=== PATIENT | male | born 1970 | race Caucasian/White ===

== ENCOUNTER 2020-05-28 07:08 | Day surgery (SDC) | payer OTHER, SELFPAY ==
[2020-05-21 13:45] VITALS: BMI 27.8
--- NOTE | 2020-05-27 11:50 | P.CONAN_ITS ---
Documented by User: Su Mccollum 05/27/20 11:51 HPI - Anesthesia Eval Consult details Narrative: 49yo M for Upper Endoscopy and Colonoscopy [facility] Past Medical History Medical History GERD (gastroesophageal reflux disease) Hypertension Reactive depression Surgical History Surgical History Hx of hernia repair Social History Social History Are you a primary assisted living care manager to a significant other at home: No Do you presently have visiting nurse or other home services: No Smoking Status: Current every day smoker Packs Per Day: 0.25 Cigarettes Per Day: 5.0 Years Smoked: 38 Smoked in Last 30 Days: Yes Patient Given Instructions on How to Stop Smoking: Yes Date Education Initiated: 05/21/20 Use of substances other than those prescribed or required for medical reasons: No Have you been hit, kicked, punched, or otherwise hurt by someone within the past year? If so, by whom?: No Advance Directives: No Advance Directives Information Provided: No Advance Directives on File: No Recently lost weight without trying: No Meds Allergies Allergy/AdvReac Type Severity Reaction Status Date / Time No Known Allergies Allergy Verified 05/21/20 13:35 Home Medications Medication Instructions Recorded Confirmed Type cyclobenzaprine 10 mg PO BEDTIME PRN 05/21/20 05/21/20 History gemfibrozil 600 mg PO BID 05/21/20 05/21/20 History omeprazole 20 mg PO DAILY 05/21/20 05/21/20 History Exam Exam Date and Time: May 27, 2020 1150 Height,Weight and Vital Signs: Height 6 ft Weight 92.986 kg Assessment and Plan Assessment Anesthesia Assessment: Chart Reviewed Documented by User: Destiny Roa 05/28/20 08:08 [facility] Past Medical History Medical History GERD (gastroesophageal reflux disease) Hypertension Reactive depression Surgical History Surgical History Hx of hernia repair Social History Social History Are you a primary assisted living care manager to a significant other at home: No Do you presently have visiting nurse or other home services: No Smoking Status: Current every day smoker Packs Per Day: 0.25 Cigarettes Per Day: 5.0 Years Smoked: 38 Smoked in Last 30 Days: Yes Patient Given Instructions on How to Stop Smoking: Yes Date Education Initiated: 05/21/20 Use of substances other than those prescribed or required for medical reasons: No Have you been hit, kicked, punched, or otherwise hurt by someone within the past year? If so, by whom?: No Advance Directives: No Advance Directives Information Provided: No Advance Directives on File: No Recently lost weight without trying: No Meds Allergies Allergy/AdvReac Type Severity Reaction Status Date / Time No Known Allergies Allergy Verified 05/21/20 13:35 Home Medications Medication Instructions Recorded Confirmed Type cyclobenzaprine 10 mg PO BEDTIME PRN 05/21/20 05/21/20 History gemfibrozil 600 mg PO BID 05/21/20 05/21/20 History omeprazole 20 mg PO DAILY 05/21/20 05/21/20 History Exam Airway Mallampati Class: II TM Dist: >3cm Neck ROM: Full Loose/Missing/Broken Teeth: No Heart: RRR Lungs: CTA Assessment and Plan Assessment Anesthesia Assessment: Anesthesia Plan Discussed Final Anesthetic Review NPO: Yes ASA Class: II Final Preanesthetic Review: Meds/Allgs Chart Reviewed, Consent Obtained/Reviewed and Anes Risks/Benef Reviewed Patient Risk: Intermediate Procedure Risk: Intermediate Anesthetic Plan Anesthetic Plan: MAC: Disposition: Standard PACU
--- NOTE | 2020-05-28 07:33 | P.HPSUR_ITS ---
Pre-Procedural Eval Section B Chief Complaint: GERD,SCREENING Relevant Social History: Tobacco Use Present Medications: see Short Stay Collaborative assessment Medical History: Significant History (htn,depression,gerd) History of Previous Operations: Relevant previous surgery/procedure and date(s) (hernia) Allergies: Allergies Allergy/AdvReac Type Severity Reaction Status Date / Time No Known Allergies Allergy Verified 05/21/20 13:35 Review of Systems Sugical H&P ROS: Negative: Constitution, Cardiovascular, Respiratory, Neurological, Psychiatric, Hem-Onc, Allergic/Immunologic, Gastrointestinal, Genitourinary, Musculoskeletal, Integumentary, Endocrine and Eyes/Ears/Nose/Throat Exam Surgical H&P Exam: Normal: HEENT, Normal: Heart, Normal: Lungs, Normal: Ex tremities, Normal: Abdomen, Normal: Skin and Normal: Neurological Plan Diagnosis/Plan: Unchanged Patient has been examined and remains a candidate for the planned procedure
[2020-05-28] MEDS: Lactated Ringers 1,000 ML 100 ML IVCONT (07:35)
[2020-05-28 07:57] VITALS: BP 139/103; PULSE 82; RESP 18; TEMP 36.1; O2SAT 95
--- NOTE | 2020-05-28 09:12 | PM.OP ---
Brief Operative Note Date of Service: 05/28/20 Pre-op diagnosis: GERD, colon screen Post-op diagnosis: same Procedure: see op note Surgeon: Ahmet Perez MD Anesthesia: MAC Estimated blood loss (mL): 0 Condition: stable Disposition: PACU
--- NOTE | 2020-05-28 09:12 | W.PM.OPN ---
Operative Note Operative Note Date of Service: 05/28/20 Narrative: Operative Information Procedure Description: EGD, Colonoscopy FLEXIBLE TRANSORAL UPPER GASTROINTESTINAL ENDOSCOPY AND COLONOSCOPY PROCEDURE NOTE UPPER ENDOSCOPY Consent: Indications for the procedure and potential complications of bleeding, perforation, reaction to medications and missed diagnosis were discussed with the patient and informed consent was obtained. Instrument: Olympus GIF H 190 J mid size upper endoscope Monitoring: Vital signs and clinical assessment, continuous EKG monitoring, Pulse oximetry, Carbon Dioxide monitoring and blood pressure monitoring were done throughout the procedure. Procedure: The patient was placed in the left lateral decubitis position and pre-procedure medications were administered and a bite block was placed. The endoscope was inserted into the mouth and advanced under direct vision to the third part of duodenum. A careful inspection was made as the upper endoscope was withdrawn including a retroflexed examination of the proximal stomach; Findings and interventions are described below. Findings: Larynx:normal Esophagus: GE junction at 40 cm, diaphragm hiatus at 40 cm, erosive esophagitis with linear streaks seen at distal esophagus LA grade B, bx taken from GEJ and random esophagus due to furrowing and ridging Stomach: Patchy gastritis. Biopsies were obtained. Grade 2 flap valve on retroflexed examination of the cardia. Duodenum: Normal bulb and descending duodenum, Intervention: Biopsies as noted above COLONOSCOPY Instrument: Olympus variable stiffness pediatric scope 190L Colonoscopy Monitoring: Vital signs and clinical assessment, continuous EKG monitoring, Pulse oximetry, Carbon Dioxide monitoring and blood pressure monitoring were done throughout the procedure. Colon withdrawal time was 12 minutes. Procedure: The patient was placed in the left lateral decubitis position and pre-procedure medications were administered. After a digital rectal examination of the ano-rectum, the video colonoscope was inserted into the rectum and advanced through the colon to the cecum/TI. The colonoscope was slowly withdrawn in a retrograde panoramic fashion and the colon mucosa was carefully examined including a retroflexed view of the rectum. Findings and interventions are described below. Procedure Difficulty: easy Findings: Terminal Ileum-normal Cecum:normal Ascending Colon: normal Transverse Colon -normal Descending Colon: 10-11 mm sessile polyp removed with cold snare Sigmoid Colon: few small diverticula seen Rectum: Retroflexion with moderate sized internal hemorrhoids, grade I, one samll polyp 3-4 mm removed with forceps Anorectum - normal Colon preparation: [place] Bowel Preparation Scale Right colon; 2 Transverse colon: 3 Left colon; 2 (0 = Unprepared colon segment with mucosa not seen due to solid stool that cannot be cleared. 1 = Portion of mucosa of the colon segment seen, but other areas of the colon segment not well seen due to staining, residual stool and/or opaque liquid. 2 = Minor amount of residual staining, small fragments of stool and/or opaque liquid, but mucosa of colon segment seen well. 3 = Entire mucosa of colon segment seen well with no residual staining, small fragments of stool or opaque liquid) Impression and Post Procedure Diagnosis: Endoscopy Findings: erosive esophagitis gastritis Colonoscopy Findings: internal hemorrhoids diverticular disease polyps Plan: Await Pathology results Repeat Colonoscopy in 5 years if adenomatous polyps, 10 yrs if hyperplastic or earlier if clinically indicated High fiber diet leaflet avoid straining at stool, epsom salts and sitz bath, anusol supps or cream prn review PPi use and compliance with patient Above findings were reviewed with the patient and relevant handouts were provided if indicated.
[2020-05-28 09:19] VITALS: BP 118/87; PULSE 80; RESP 12; TEMP 37.1; O2SAT 96
[2020-05-28 09:34] VITALS: BP 146/89; PULSE 87; RESP 16; TEMP 37.1; O2SAT 98
--- NOTE | 2020-05-28 10:22 | HO.POSTANES ---
Post Anesthesia Evaluation Post Anesthesia Evaluation Vital Signs: Vital Signs Temp Pulse Resp BP Pulse Ox 05/28/20 09:34 98.7 F 87 16 146/89 H 98 05/28/20 09:19 98.7 F 80 12 118/87 96 05/28/20 07:57 97 F 82 18 139/103 H 95 Anesthesia: Monitored Mental Status: Awake Pain Control: Satisfactory Nausea/Vomiting: None Hydration: Adequate
== END 2020-05-28 09:55 | disposition home or self-care (01) ==
PROVIDERS: PCP Physician Assistant; Visit Provider Internal Medicine Gastroenterology
PROC: (CPT 43239; principal; 2020-05-28 08:30)
DX: Z12.11 Encounter for screening for malignant neoplasm of colon (principal); K63.5 Polyp of colon; K62.1 Rectal polyp; K57.30 Diverticulosis of large intestine without perforation or abscess without bleeding; K64.0 First degree hemorrhoids; K21.00 Gastro-esophageal reflux disease with esophagitis, without bleeding; K29.50 Unspecified chronic gastritis without bleeding; I10 Essential (primary) hypertension; F17.210 Nicotine dependence, cigarettes, uncomplicated; Z79.899 Other long term (current) drug therapy
CPT/HCPCS: 43239; 45385; 45380; 88305; 88342; J3010

== ENCOUNTER 2020-06-10 07:34 | Outpatient (REF) | payer OTHER, SELFPAY ==
[2020-06-10 07:59] LABS: COVID-19 Test Negative (Negative)
== END 2020-06-10 07:35 | disposition home or self-care (01) ==
LOC: HO.EMPCOV 07:34
PROVIDERS: Visit Provider Internal Medicine
DX: Z20.828 Contact with and (suspected) exposure to other viral communicable diseases (principal)
CPT/HCPCS: 87635; C9803

== ENCOUNTER 2020-08-16 09:26 | Outpatient (REF) | payer OTHER, SELFPAY | END 2020-08-16 09:27 | disposition home or self-care (01) | LOC: HO.EMPCOV 09:26 | PROVIDERS: Visit Provider Internal Medicine | DX: Z13.89 Encounter for screening for other disorder (principal) ==

== ENCOUNTER 2021-01-23 13:29 | Outpatient (REF) | payer OTHER, SELFPAY ==
[2021-01-23 14:26] LABS: Hematocrit 48.2 % (42-52); Hemoglobin 16.5 g/dl (14.0-18.0); Mean Corpuscular HGB Conc 34.2 g/dl (31.0-36.0); Mean Corpuscular Hemoglobin 31.9 pg (27.0-33.0); Mean Corpuscular Volume 93.1 fL (80-98); Mean Platelet Volume 10.8 fL (9.4-12.4); Platelet Count 252 X10*3/uL (160-400); Red Blood Count 5.18 X10*6/uL (4.60-5.80); Red Cell Distribution Width 12.9 % (11.0-16.0); White Blood Count 8.5 X10*3/uL (4.8-10.8)
[2021-01-23 14:51] LABS: Anion Gap 18 (12-20); Blood Urea Nitrogen 11 mg/dL (9-16); Calcium 10.8 mg/dL (8.4-10.2); Carbon Dioxide 26 mmol/L (22-29); Chloride 98 mmol/L (96-108); Estimated Glomerular Filt Rate > 60; Glucose Random 117 mg/dL (60-115); Iron 129 mcg/dL (45-160); Lipase 21 U/L (8-78); Percent Iron Saturation 33 % (15-50); Potassium 3.8 mmol/L (3.3-5.1); Sodium 138 mmol/L (135-145); Total Iron Binding Capacity 394 mcg/dL (228-428); Unsaturated Iron Binding 265 ug/dL
[2021-01-23 15:13] LABS: Folate 12.3 ng/mL (> or = 4.0); Vitamin B12 441 pg/mL (200-900)
== END 2021-01-23 13:30 | disposition home or self-care (01) ==
LOC: HO.LAB 13:29
PROVIDERS: PCP Physician Assistant; Visit Provider Physician Assistant
DX: K21.9 Gastro-esophageal reflux disease without esophagitis (principal); R53.83 Other fatigue; I10 Essential (primary) hypertension; D50.9 Iron deficiency anemia, unspecified
CPT/HCPCS: 36415; 80048; 82607; 82746; 83540; 83690; 85027; 87081; 87338

== ENCOUNTER 2021-05-22 15:14 | Outpatient (REF) | payer OTHER, SELFPAY ==
[2021-05-22 15:29] LABS: MANUAL DIFF FLAG NO
[2021-05-22 15:40] LABS: Basophils Percent Auto 0.5 % (0-2); Eosinophils Percent Auto 0.5 % (0-4); Hematocrit 48.3 % (42.0-52.0); Hemoglobin 16.7 g/dl (14.0-18.0); Imm Gran Abs Auto 0.01 X10*3/uL (0.00-0.03); Imm Gran Pct Auto 0.2 % (0.0-0.4); Lymphocytes Absolute Auto 0.4 X10*3/uL (1.2-4.9); Lymphocytes Percent Auto 6.5 % (20-40); Mean Corpuscular HGB Conc 34.6 g/dl (31.0-36.0); Mean Corpuscular Hemoglobin 33.3 pg (27.0-33.0); Mean Corpuscular Volume 96.4 fL (80.0-98.0); Mean Platelet Volume 11.5 fL (9.4-12.4); Monocytes Absolute Auto 1.1 X10*3/uL (0.1-1.2); Monocytes Percent Auto 16.6 % (2-11); Neutrophils Absolute Auto 4.9 x10*3/uL (2.0-8.3); Neutrophils Percent Auto 75.7 % (45-73); Platelet Count 171 X10*3/uL (160-400); Red Blood Count 5.01 X10*6/uL (4.60-5.80); Red Cell Distribution Width 14.6 % (11.0-16.0); White Blood Count 6.5 X10*3/uL (4.8-10.8)
[2021-05-22 16:04] LABS: Anion Gap 21 (12-20); Blood Urea Nitrogen 9 mg/dL (9-16); Calcium 10.9 mg/dL (8.4-10.2); Carbon Dioxide 24 mmol/L (22-29); Chloride 96 mmol/L (96-108); Estimated Glomerular Filt Rate > 60; Glucose Random 165 mg/dL (60-115); Potassium 3.8 mmol/L (3.3-5.1); Sodium 137 mmol/L (135-145)
== END 2021-05-22 15:15 | disposition home or self-care (01) ==
LOC: HO.LAB 15:14
PROVIDERS: PCP Physician Assistant; Visit Provider Nurse Practitioner Family
DX: L30.9 Dermatitis, unspecified (principal); R21 Rash and other nonspecific skin eruption; I10 Essential (primary) hypertension
CPT/HCPCS: 36415; 80048; 85025

== ENCOUNTER 2021-07-24 09:39 | Outpatient (REF) | payer OTHER, SELFPAY ==
[2021-07-24 10:42] LABS: Hematocrit 40.6 % (42.0-52.0); Hemoglobin 13.9 g/dl (14.0-18.0); Mean Corpuscular HGB Conc 34.2 g/dl (31.0-36.0); Mean Corpuscular Hemoglobin 32.9 pg (27.0-33.0); Mean Corpuscular Volume 96.2 fL (80.0-98.0); Mean Platelet Volume 12.2 fL (9.4-12.4); Platelet Count 195 X10*3/uL (160-400); Red Blood Count 4.22 X10*6/uL (4.60-5.80); Red Cell Distribution Width 14.3 % (11.0-16.0); White Blood Count 5.3 X10*3/uL (4.8-10.8)
[2021-07-24 11:11] LABS: Appearance Urine HAZY; Glucose Urine UA 100 MG/DL (NEG); PH 6.5 (5.0-8.0); Specific Gravity - Urine 1.025 (1.005-1.025); Urine Blood TRACE (NEG); Urine Ketones 15 MG/DL (NEG); Urine Protein 3+ MG/DL (NEG-TRACE)
[2021-07-24 11:14] LABS: Alanine Aminotransferase 374 U/L (0-40); Albumin Level 4.1 g/dL (3.5-5.0); Alkaline Phosphatase 311 U/L (39-117); Anion Gap 19 (12-20); Aspartate Amino Transferase 563 U/L (5-37); Bilirubin Direct 6.7 mg/dL (0.0-0.5); Bilirubin Total 8.7 mg/dL (0.0-1.0); Blood Urea Nitrogen 11 mg/dL (9-16); Carbon Dioxide 28 mmol/L (22-29); Chloride 90 mmol/L (96-108); Estimated Glomerular Filt Rate > 60; Glucose Random 128 mg/dL (60-115); Potassium 3.6 mmol/L (3.3-5.1); Sodium 133 mmol/L (135-145); Total Protein 7.8 g/dL (6.5-8.0)
[2021-07-24 11:25] LABS: Calcium 11.8 mg/dL (8.4-10.2)
[2021-07-24 11:27] LABS: Color Urine BROWN; UACC Culture Trigger NO
[2021-07-24 11:32] LABS: HBS Num1 15.23 mIU/mL (0-7.99); HBc Num1 0.17 S/CO (0.00-0.79); HBsAGNum1 0.23 S/CO (0.00-0.99); Hepatitis B Core Antibody Nonreactive (Nonreactive); Hepatitis B Surface Antigen Negative (Negative); ~HepC Num1 0.12 S/CO (0.00-0.79); ~Hepatitis B Surface Antibody REACTIVE (Nonreactive); ~Hepatitis C Antibody Nonreactive (Nonreactive)
[2021-07-24 11:37] LABS: Mucus Urine 2+ /LPF
[2021-07-24 11:38] LABS: Bacteria Urine TRACE /LPF; UACC CULT YES
[2021-07-24 11:41] LABS: RBC Urine 0-2 /HPF (0); Squamous Epithelial Cell Urine TRACE /LPF
[2021-07-24 11:50] LABS: INTERNATIONAL NORM RATIO 1.1 (0.9-1.1)
[2021-07-25 13:06] LABS: Calcium (PTHI) 11.5 mg/dL (8.6-10.3); PTHI 4 pg/mL (14-64)
== END 2021-07-24 09:40 | disposition home or self-care (01) ==
LOC: HO.LAB 09:39
PROVIDERS: PCP Physician Assistant; Visit Provider Physician Assistant
DX: Z01.84 Encounter for antibody response examination (principal); Z11.3 Encounter for screening for infections with a predominantly sexual mode of transmission; R17 Unspecified jaundice; E83.52 Hypercalcemia; R11.11 Vomiting without nausea
CPT/HCPCS: 36415; 80048; 80076; 81001; 83970; 85027; 85610; 86704; 86706; 86803; 87081; 87086; 87338; 87340

== ENCOUNTER 2021-07-24 12:46 | Emergency (ER) | payer OTHER, SELFPAY ==
--- NOTE | ~2021-07-24 | US_ITS ---
EXAMINATION: US ABDOMEN LIMITED CLINICAL INFORMATION: Elevated LFTs, jaundice.. COMPARISON: None TECHNIQUE: Real-time imaging of the right upper quadrant abdominal viscera. FINDINGS: PANCREAS: Obscured by overlying bowel gas. LIVER: There is hepatomegaly present with vertical span of the right lobe of 20 cm and of the left lobe of 16 cm. There is diffuse echogenicity seen consistent with fatty infiltration/hepatocellular disease. No focal mass identified. There is no intrahepatic biliary duct dilatation seen.There appears to be antegrade flow within the main portal vein. GALLBLADDER: There is echogenic bile present with thickened wall to approximately 4.5 mm in diameter with question of fluid with in the gallbladder wall there is also noted to be a 3 mm echogenic focus with comet tail artifact consistent with cholesterol polyp. No pericholecystic fluid is identified. COMMON BILE DUCT: Normal in caliber measuring 0.6 cm in diameter. RIGHT KIDNEY: Normal. No hydronephrosis. No renal calculi or focal parenchymal lesions. The kidney measures 10.4 cm in maximum dimension. US/US abdomen limited IMPRESSION: Hepatomegaly with diffusely increased echogenicity of the liver consistent with fatty infiltration/hepatocellular disease. Question gallbladder wall thickening with possible fluid in the wall versus nondilated wall with adjacent echogenic region of the liver. There was no pain to palpation overlying the gallbladder and no definite pericholecystic fluid is seen. Cholesterol polyp is present.
[2021-07-24 12:53] VITALS: BP 139/88; PULSE 118; RESP 20; TEMP 36.6; O2SAT 99; BMI 28.5
--- NOTE | 2021-07-24 15:24 | ED_ITS ---
HPI - Recheck/Abnormal Lab/Rx General Chief Complaint: Recheck/Abnormal Lab/Rx Stated Complaint: Abnormal labs Time Seen by Provider: 07/24/21 14:05 Source: patient Mode of arrival: ambulatory Limitations: no limitations History of Present Illness HPI narrative: Patient comes to the emergency room complaining of elevated LFTs. Patient states that he was diagnosed with COVID-19 approximately 2 weeks ago. Patient was at home recovering. Yesterday was his 1st day back from work, patient noted that his colleagues were telling him that he looked jaundiced. Patient states that for approximately 1 week he has noticed that his urine is dark brown. Today he went to see his primary care physician, got lab work done. Shortly after patient received a phone call from his PCP asking him to come to the emergency room for further evaluation due to elevated LFTs. Patient denies any abdominal pain, no fever or chills. Patient states that he usually drinks 3 shots of vodka, but has not taking any alcohol for approximately 1 week. Related Data Previous Rx's Medication Instructions Recorded cetirizine 10 mg tablet 10 mg PO DAILY #30 tab 05/22/21 diphenhydramine HCl 25 mg capsule 25 - 50 mg PO BEDTIME PRN #30 cap 05/22/21 gemfibrozil 600 mg tablet 600 mg PO BID #60 tab 05/22/21 sildenafil 100 mg tablet (Viagra) 100 mg PO DAILY PRN 30 Days #7 tab 06/06/21 omeprazole 40 mg capsule,delayed 40 mg PO DAILY #90 cap 07/23/21 release Allergies Allergy/AdvReac Type Severity Reaction Status Date / Time No Known Allergies Allergy Verified 07/23/21 15:09 [No Known Allergies*] Review of Systems Review of Systems: Constitutional : No Weight loss, No Fever, No Chills, No Night Sweats, complaining of chronic fatigue for 2 weeks ENT/Mouth : No Hearing loss, No Ear Pain, No Nasal Congestion, No Sinus Pain, No Hoarseness, No sore throat, No Rhinorrhea, No Swallowing Difficulty Eyes: No Eye Pain, No Swelling, No Redness, No Foreign Body, No Discharge, No Vision Changes, complaining of icterus Cardiovascular : No Chest Pain, No SOB, No Dyspnea on Exertion, No Orthopnea, No Edema, No Palpitations Respiratory : No Cough, No Sputum, No Wheezing, No Smoke Exposure, No Dyspnea Gastrointestinal : No Nausea, No Vomiting, No Diarrhea, No Constipation, No abdominal Pain, No Hematochezia, No Melena Genitourinary : no irregular bleeding, No Dysuria, No Urinary Frequency, No Hematuria, No Urinary Incontinence, No Urgency, No Flank Pain, No Urinary Flow Changes, No Hesitancy Musculoskeletal : No joint pain, No Myalgias, No Joint Swelling Skin : No Skin Lesions, moderate jaundice Neuro : No Weakness, No Numbness, No Paresthesias, No Loss of Consciousness, No Dizziness, No Headache Psych : No Anxiety/Panic, No Depression, No SI/HI/AH/VH, No Social Issues, Heme/Lymph: No Bruising, No Bleeding,No Lymphadenopathy Endocrine : No Polyuria, No Polydipsia, No Temperature Intolerance [facility] Past Medical History Medical History GERD (gastroesophageal reflux disease) Hypertension Reactive depression Surgical History History of colonoscopy History of esophagogastroduodenoscopy (EGD) Hx of hernia repair Social History Social History Are you a primary medicare sales representative to a significant other at home: No Do you presently have visiting nurse or other home services: No Cigarette Packs Per Day: 0.25 Cigarettes Per Day: 5.0 Years Smoked: 38 service: No Current occupational status: employed Physical Exam Vital Signs: Vital Signs: Last Vital Signs Temp 98.7 F 07/24/21 17: Pulse 100 07/24/21 17: Resp 18 07/24/21 17:22 BP 141/94 H 07/24/21 17: Pulse Ox 94 07/24/21 17:22 BMI result Body Mass Index 28.5 Const: Other: Appearance: Alert. Oriented X3. No acute distress. Eyes: Pupils equal, round and reactive to light. Moderate scleral icterus ENT: Pharynx normal. Neck: Normal inspection. Neck supple. No lymph nodes noted. No crepitus CVS: Normal heart rate and rhythm. Pulses normal. Normal S1 and S2 Respiratory: No respiratory distress. Breath sounds normal. No Wheezing. No rales Abdomen: Soft and nontender. No rigidity. No distention. Skin: Skin warm and dry. Moderate jaundice. Extremities: No lower extremity edema. No lower extremity edema. No Lacerations. No Rash Neuro: Oriented X 3. No motor deficit. No sensory deficit. Moving all extermities. No slurred speech. Course Course Course Narrative: LFTs are elevated, hepatitis panel pending, ultrasound has been done but results pending. I discussed the patient with Dr. Bright. Patient will be discharged home, tomorrow early in the morning he needs to have his labs drawn prior to his appointment at 09:30 in the morning with Dr. Bright. If patient's LFTs continue to trend up, patient will be admitted tomorrow. At this time, other than patient feeling fatigued, patient is well-appearing. It is likely that the LFTs are secondary to COVID-19 Patient is COVID negative MDM - Recheck/Abnormal Lab/Rx Lab Data Labs: Lab Results 07/24/21 07/24/21 Range/Units 16:41 16:43 Salicylates < 5.0 L (15-30) mg/dL Acetaminophen 1 (<30) mcg/mL COVID-19 ([facility]) Negative (Negative) COVID-19 Clin Com See Note Imaging Data US - abdomen: Radiologist's impression: TECHNIQUE: Real-time imaging of the right upper quadrant abdominal viscera. FINDINGS: PANCREAS: Obscured by overlying bowel gas. LIVER: There is hepatomegaly present with vertical span of the right lobe of 20 cm and of the left lobe of 16 cm. There is diffuse echogenicity seen consistent with fatty infiltration/hepatocellular disease. No focal mass identified. There is no intrahepatic biliary duct dilatation seen.There appears to be antegrade flow within the main portal vein. GALLBLADDER: There is echogenic bile present with thickened wall to approximately 4.5 mm in diameter with question of fluid with in the gallbladder wall there is also noted to be a 3 mm echogenic focus with comet tail artifact consistent with cholesterol polyp. No pericholecystic fluid is identified. COMMON BILE DUCT: Normal in caliber measuring 0.6 cm in diameter. RIGHT KIDNEY: Normal. No hydronephrosis. No renal calculi or focal parenchymal lesions. The kidney measures 10.4 cm in maximum dimension. US/US abdomen limited IMPRESSION: Hepatomegaly with diffusely increased echogenicity of the liver consistent with fatty infiltration/hepatocellular disease. ? Question gallbladder wall thickening with possible fluid in the wall versus nondilated wall with adjacent echogenic region of the liver. There was no pain to palpation overlying the gallbladder and no definite pericholecystic fluid is seen. Cholesterol polyp is present. Discharge Plan Discharge Clinical Impression: Elevated LFTs Patient Disposition: Home, Self-Care Instructions: Jaundice (ED) Additional Instructions: Please follow-up with Dr. Bright from Gastroenterology tomorrow. At least 1 hour before your appointment at 09:30, you need to have your labs redrawn. If your labs are elevated, it is likely that you will be admitted to the hospital tomorrow. If you have any worsening or new symptoms[facility] Prescriptions: No Action sildenafil [Viagra] 100 mg tablet 100 mg PO DAILY PRN (Reason: sexual activity) 30 Days Qty: 7 RF: 5 gemfibrozil 600 mg tablet 600 mg PO BID Qty: 60 RF: 0 Hold Instructions: Doctor's Order cetirizine 10 mg tablet 10 mg PO DAILY Qty: 30 RF: 0 diphenhydramine HCl 25 mg capsule 25 - 50 mg PO BEDTIME PRN (Reason: sleep) Qty: 30 RF: 0 omeprazole 40 mg capsule,delayed release(DR/EC) 40 mg PO DAILY Qty: 90 RF: 0 Referrals: Nam Bright MD [Physician] - 07/25/21 9:30 am
[2021-07-24 15:54] VITALS: BP 139/91; PULSE 103; RESP 18; TEMP 37.3; O2SAT 97
[2021-07-24 17:07] LABS: COVID-19 Test Negative (Negative)
[2021-07-24 17:10] LABS: Acetaminophen LAB 1 mcg/mL (<30)
[2021-07-24 17:22] VITALS: BP 141/94; PULSE 100; RESP 18; TEMP 37.1; O2SAT 94
[2021-07-24 17:24] LABS: Salicylate < 5.0 mg/dL (15-30)
[2021-07-28 07:50] LABS: HBS Num1 12.09 mIU/mL (0-7.99); HBc Num1 0.09 S/CO (0.00-0.79); HBsAGNum1 0.25 S/CO (0.00-0.99); Hepatitis B Core Antibody Nonreactive (Nonreactive); Hepatitis B Surface Antigen Negative (Negative); ~HepC Num1 0.11 S/CO (0.00-0.79); ~Hepatitis B Surface Antibody REACTIVE (Nonreactive); ~Hepatitis C Antibody Nonreactive (Nonreactive)
[2021-07-30 07:23] LABS: Hepatitis A Antibody IgM 0.22 Index (0-0.79); ~Hepatitis A Antibody IgM Nonreactive (Nonreactive)
== END 2021-07-24 17:50 | disposition home or self-care (01) ==
PROVIDERS: Emergency Provider Emergency Medicine; PCP Physician Assistant
DX: R79.89 Other specified abnormal findings of blood chemistry (principal); Z20.822 Contact with and (suspected) exposure to COVID-19; F10.10 Alcohol abuse, uncomplicated; I10 Essential (primary) hypertension; F17.200 Nicotine dependence, unspecified, uncomplicated
CPT/HCPCS: 36415; 76705; 80143; 80179; 86704; 86706; 86709; 86803; 87340; 87635; 99283; 99284

== ENCOUNTER 2021-07-25 08:19 | Outpatient (REF) | payer OTHER, SELFPAY ==
--- NOTE | ~2021-07-25 | US_ITS ---
EXAMINATION: US ABDOMEN LIMITED CLINICAL INFORMATION: Unspecified jaundice. COMPARISON: Ultrasound abdomen limited 07/24/2021. TECHNIQUE: Real-time imaging of the left upper quadrant (imaging of the right upper quadrant was performed yesterday, 07/24/2021). FINDINGS: The spleen is homogeneous and normal in size measuring 9.3 cm. No focal lesion is seen. The left kidney measures 11.3 cm in length. There is an anechoic cyst in the mid pole, partially exophytic, measuring 2.2 x 2.2 x 2.2 cm. No echogenic stones or hydronephrosis is seen. There is normal cortical thickness. The right upper quadrant was imaged a day earlier on 07/24/2021. US/US abdomen limited IMPRESSION: Left renal cyst. Unremarkable spleen.
[2021-07-25 08:46] LABS: MANUAL DIFF FLAG NO
[2021-07-25 08:48] LABS: Basophils Absolute Auto 0.1 X10*3/uL (0.0-0.2); Basophils Percent Auto 1.2 % (0-2); Eosinophils Absolute Auto 0.2 X10*3/uL (0.0-0.4); Eosinophils Percent Auto 3.7 % (0-4); Hematocrit 40.6 % (42.0-52.0); Hemoglobin 14.2 g/dl (14.0-18.0); Imm Gran Abs Auto 0.04 X10*3/uL (0.00-0.03); Imm Gran Pct Auto 0.9 % (0.0-0.4); Lymphocytes Absolute Auto 0.9 X10*3/uL (1.2-4.9); Lymphocytes Percent Auto 20.6 % (20-40); Mean Corpuscular Hemoglobin 34.1 pg (27.0-33.0); Mean Corpuscular Volume 97.6 fL (80.0-98.0); Mean Platelet Volume 11.9 fL (9.4-12.4); Monocytes Absolute Auto 0.8 X10*3/uL (0.1-1.2); Monocytes Percent Auto 18.9 % (2-11); NRBC Pct Auto 0.7 /100WBC (0.0-0.2); Neutrophils Absolute Auto 2.4 x10*3/uL (2.0-8.3); Neutrophils Percent Auto 54.7 % (45-73); Platelet Count 225 X10*3/uL (160-400); Red Blood Count 4.16 X10*6/uL (4.60-5.80); Red Cell Distribution Width 14.4 % (11.0-16.0); White Blood Count 4.3 X10*3/uL (4.8-10.8)
[2021-07-25 08:53] LABS: Prothrombin Time 11.9 SEC (9.9-13.0)
[2021-07-25 09:03] LABS: Alanine Aminotransferase 401 U/L (0-40); Albumin Level 4.1 g/dL (3.5-5.0); Alkaline Phosphatase 347 U/L (39-117); Aspartate Amino Transferase 580 U/L (5-37); Bilirubin Direct 5.9 mg/dL (0.0-0.5); Bilirubin Total 7.8 mg/dL (0.0-1.0); Total Protein 7.9 g/dL (6.5-8.0)
[2021-07-25 11:42] LABS: Anion Gap 21 (12-20); Blood Urea Nitrogen 8 mg/dL (9-16); Calcium 11.6 mg/dL (8.4-10.2); Carbon Dioxide 25 mmol/L (22-29); Chloride 91 mmol/L (96-108); Estimated Glomerular Filt Rate > 60; Glucose Random 149 mg/dL (60-115); Lipase 156 U/L (8-78); Sodium 134 mmol/L (135-145)
== END 2021-07-25 08:20 | disposition home or self-care (01) ==
LOC: HO.US 08:19
PROVIDERS: Internal Medicine Gastroenterology; Absent Provider Emergency Medicine; PCP Physician Assistant; Visit Provider Physician Assistant
DX: R17 Unspecified jaundice (principal); R11.11 Vomiting without nausea; K21.9 Gastro-esophageal reflux disease without esophagitis
CPT/HCPCS: 36415; 76705; 80048; 80076; 83690; 85025; 85610

== ENCOUNTER 2021-07-25 10:22 | Inpatient (IN) | payer OTHER, SELFPAY ==
[2021-07-25] VITALS (7 sets, daily range): BP systolic 137–152; BP diastolic 92–106; PULSE 71–101; RESP 14–18; TEMP 36.4; O2SAT 93–97; BMI 27.1
--- NOTE | ~2021-07-25 | US_ITS ---
EXAMINATION: ABDOMINAL ULTRASOUND WITH DOPPLER CLINICAL INFORMATION: Question of Budd-Chiari syndrome COMPARISON: CT abdomen pelvis 07/25/2021 TECHNIQUE: Ultrasound limited to the liver was performed along with color flow Doppler. Imaging is suboptimal secondary to marked bowel gas and marked hyperattenuation of the liver with poor sound transmission. FINDINGS: The liver is enlarged with increased echogenicity consistent with fatty infiltration. This is better appreciated on the CT scan. Portal venous system is all patent with normal hepatopedal flow. The main hepatic artery appeared normal with a velocity of 107 cm/s. The right and left hepatic arteries could not be identified. Hepatic veins are all patent as was seen on the CT scan performed earlier today. No ascites is seen. No varices are identified. US/US duplex arterial venous comp IMPRESSION: * The portal venous system as well as the hepatic veins are all patent. * Markedly echogenic liver consistent with hepatic steatosis * No evidence to suggest the presence of Budd-Chiari syndrome
--- NOTE | ~2021-07-25 | CT_ITS ---
EXAMINATION: CT ABDOMEN AND PELVIS WITH CONTRAST CLINICAL INFORMATION: Gallbladder wall thickening on ultrasound COMPARISON: Ultrasound examinations of July 25, 2021 and July 24, 2021 TECHNIQUE: Multidetector volumetric images were obtained from the superior aspect of the liver through the pubic symphysis following administration 85 mL of Omnipaque 350 intravenous contrast. Sagittal and coronal reformatted images were obtained on the technologist's workstation. Oral contrast: No This CT examination was performed using dose optimization techniques as appropriate, variously including the following: *Automated exposure control *Adjustment of mA and/or kV according to patient size (this includes techniques or standardized protocols for targeted exams where dose is matched to indication/reason for exam; i.e. extremities or head) *Use of iterative reconstruction technique DLP: 596 mGy-cm FINDINGS: LUNG BASES: The visualized lung bases are unremarkable. LIVER, GALLBLADDER, AND BILIARY TREE: The liver is normal in size, shape, and attenuation. No focal hepatic lesion or biliary ductal dilatation is present. The gallbladder is unremarkable with no evidence of radiopaque gallstones, gallbladder wall thickening, or obvious pericholecystic inflammatory changes. PANCREAS: Unremarkable. SPLEEN: Unremarkable. ADRENAL GLANDS: Unremarkable. KIDNEYS AND URETERS: The kidneys are normal in size, shape, and attenuation. No hydronephrosis, hydroureter, or calculi seen. No perinephric stranding. BLADDER: Unremarkable. GASTROINTESTINAL TRACT: The small and large bowel are unremarkable. The appendix is unremarkable. ABDOMINAL WALL: No significant hernia is appreciated. LYMPH NODES: Normal. VASCULAR: Unremarkable. PELVIC VISCERA: Unremarkable. OSSEOUS STRUCTURES: Unremarkable. CT/CT abdomen pelvis w con IMPRESSION: No significant abnormality. Fleischner guidelines were followed.
--- NOTE | 2021-07-25 10:46 | PC.NURSE ---
pt seen in ed yesterday however he does not remember what he was seen for. he states that this morning a nurse called him to come to the hospital to be evaluated. pt's current bp 152/106. will recheck and continue to monitor.
--- NOTE | 2021-07-25 10:56 | ED.GENADULT ---
HPI - General Adult General Chief complaint: Recheck/Abnormal Lab/Rx Stated complaint: dehydration Time Seen by Provider: 07/25/21 10:45 History of Present Illness HPI narrative: Patient is a 50-year-old female with a past medical history hypertension, GERD, ETOH abuse, recent COVID-19 infection. Patient referred to the emergency department from Gastroenterology office after visit with Dr. Bright today, he reports that she advised him that he is dehydrated and requires IV fluids. He presented there for follow-up after emergency department visit yesterday. He was evaluated yesterday for recent onset of jaundice, elevated LFTs. Patient reports that he was diagnosed with COVID-19 about 2 weeks ago. Upon returning to work his coworkers were concerned about a jaundiced appearance and advised him to come to the emergency department. He states that he has lost approximately 20 lb over the past 2 weeks, that his urine is dark brown and has been that way for about 1 week. Additionally, he does report that he has been vomiting daily for 1 month. He denies any past history of liver disease, family history is unknown as he is adopted. Reports that does use 400 mg of ibuprofen every other day for the last few years typically for headaches. He endorses regular alcohol consumption, 2-3 vodka drinks nightly but reportedly has not consumed any alcohol over the past week. Related Data Previous Rx's Medication Instructions Recorded cetirizine 10 mg tablet 10 mg PO DAILY #30 tab 05/22/21 diphenhydramine HCl 25 mg capsule 25 - 50 mg PO BEDTIME PRN #30 cap 05/22/21 gemfibrozil 600 mg tablet 600 mg PO BID #60 tab 05/22/21 sildenafil 100 mg tablet (Viagra) 100 mg PO DAILY PRN 30 Days #7 tab 06/06/21 omeprazole 40 mg capsule,delayed 40 mg PO DAILY #90 cap 07/23/21 release Allergies Allergy/AdvReac Type Severity Reaction Status Date / Time No Known Allergies Allergy Verified 07/25/21 09:35 [No Known Allergies*] Review of Systems Review of Systems: Constitutional: No weight loss, fever, chills, weakness or fatigue. HEENT yellow sclera: No visual loss, blurred vision, double vision.. No hearing loss, sneezing, congestion, runny nose or sore throat. Skin: Skin dry and yellow Cardiovascular: No chest pain, chest pressure or chest discomfort. No palpitations or pedal edema. Respiratory: No shortness of breath, cough or sputum production. Gastrointestinal: + nausea, vomiting No anorexia, vomiting or diarrhea. No abdominal pain or blood in stool. Genitourinary: + dark-colored urine No burning micturition. No urinary frequency or incontinence. Neurologic: No headache, dizziness, syncope, unilateral weakness, ataxia, numbness or tingling in the extremities. No change in bowel or bladder control. Musculoskeletal: No muscle pain, back pain, joint pain or stiffness. Hematologic: No bleeding or bruising. Lymphatics: No enlarged lymph nodes. Psychiatric:No depression or anxiety. Endocrine: No reports of sweating. No cold or heat intolerance. No polyuria or polydipsia. REPLACED BY [facility] Past Medical History Medical History GERD (gastroesophageal reflux disease) Hypertension Reactive depression Surgical History History of colonoscopy History of esophagogastroduodenoscopy (EGD) Hx of hernia repair Social History Social History Are you a primary certified social workers in health care to a significant other at home: No Do you presently have visiting nurse or other home services: No Cigarette Packs Per Day: 0.25 Cigarettes Per Day: 5.0 Years Smoked: 38 Advance Directives: No Advance Directives Information Provided: No service: No Current occupational status: employed Physical Exam Vital Signs: Vital Signs: Last Vital Signs Temp 97.6 F 07/25/21 10:39 Pulse 80 07/25/21 14:46 Resp 16 07/25/21 14:46 BP 140/92 H 07/25/21 14:46 Pulse Ox 96 07/25/21 14:46 BMI result Body Mass Index 27.1 Vital signs have been reviewed and appeared to be correct. Blood pressure elevated 140/92. Heart rate normal.? Respiration rate normal. Temperature normal.? Oxygen saturation normal. Appearance: Alert.?Oriented to person, place and time. No acute distress.?Normal affect. Eyes: Pupils equal, round and reactive to light.? Sclera jaundice ENT: Pharynx normal.?? Neck: Normal inspection.? Neck supple.?? CVS: Heart sounds normal. Normal heart rate and rhythm.? Pulses normal.?? Respiratory: No respiratory distress.? Lung sounds clear to auscultation bilaterally?? Abdomen: Soft and non-tender. Normoactive bowel sounds. No pulsatile mass.?? Skin: Skin warm and dry.? Jaundice? Normal skin turgor.?? Extremities: No lower extremity edema.? No calf ttp? Neuro: Moves all extremities spontaneously. Sensation intact bilaterally. No focal neuro deficits. Course Course Course Narrative: Serum labs obtained today revealed leukopenia 4.3, which is decreased in comparison to yesterday at 5.3. PT and INR are normal. Total bilirubin today has decreased since yesterday, 7.8 and 8.7 respectively. Direct bilirubin has decreased today in comparison to yesterday 5.9 and 6.7 respectively. AST has increased today in comparison to yesterday 580 and 563 respectively, ALT has increased today in comparison to yesterday 401 and 374 respectively, alkaline phosphatase has increased today comparison to yesterday 347 and 311 respectively. Yesterday was found to have hypercalcemia 11.8, PTH currently pending. Abdominal ultrasound obtained yesterday revealed hepatomegaly with diffusely increased echogenicity of the liver consistent with fatty infiltration, hepatocellular disease. There is question gallbladder wall thickening and possible fluid in the wall, his repeat ultrasound ordered by Dr. Bright has been performed and results are pending at this time. He has already had hepatitis-C and C serologies obtained which were negative, hep B antibodies are pending. Normal saline 1 L IV bolus and Zofran IV ordered. Reevaluation(s) Reevaluation #1: Patient's renal function stable, therefore will move forward with CT of the abdomen with IV contrast for further evaluation gallbladder. Noted to be hypokalemic 3.0 in comparison to level yesterday at 3.6, will patient received potassium 40 mEq orally, and potassium 20 mEq IV in total, in addition to another normal saline 1L IV bolus Time: 12:22 Reevaluation #2: CT of abdomen unremarkable. Liver normal in size no focal hepatic lesion or biliary ductal dilation. Gallbladder unremarkable no cholelithiasis, gallbladder wall thickening, or any inflammatory changes. The patient will begin p.o. trial. Denies nausea at times and has not vomited in the last couple of hours. Will reach out to Dr. Bright for further recommendations. Time: 14:25 Reevaluation #3: Patient tolerating oral intake. Dr. Bright at bedside to evaluate patient. Discussed plan of care for patient to be discharged home with antiemetics and to have repeat liver function testing outpatient follow-up in office. Patient is agreeable with plan. Discussed return precautions. Questions answered. Time: 16:00 Additional Reevaluation(s): 17:11 Received message from Radiology regarding patient's abdominal CT results, advised Radiology had entered an addendum. Shared results with Dr. Bright. CT does in fact show diffuse fatty infiltration of the liver with hepatomegaly and distended gallbladder wall with few small calcifications about its wall but without evidence of acute cholecystitis. There is an incidental finding of a left renal cyst. There is question of some impression upon the superior aspect of the inferior vena cava from liver. There appears to be some narrowing of the superior aspect of the inferior vena cava in the superior aspect of the liver and I cannot determine whether there may be some degree of Budd-Chiari present . I spoke with Dr. Bright again, she advises admission to get an ultrasound with Doppler and rule out Budd-Chiari. 1755: Spoke with , who accepted, patient to be admitted inpatient for further evaluation. Patient agreeable. Consultations Time: 17:11 Medical Decision Making Medical Records Medical records reviewed: Yes I reviewed the patient's medical records. Lab Data Lab results reviewed: Yes I reviewed the patient's lab results. Imaging Data US - abdomen: Attestation: I personally reviewed and interpreted this imaging study as follows: Radiologist's impression: Obtained 07/24/2021: IMPRESSION: Hepatomegaly with diffusely increased echogenicity of the liver consistent with fatty infiltration/hepatocellular disease. ? Question gallbladder wall thickening with possible fluid in the wall versus nondilated wall with adjacent echogenic region of the liver. There was no pain to palpation overlying the gallbladder and no definite pericholecystic fluid is seen. Cholesterol polyp is present. Repeat abdominal ultrasound: Attestation: I personally reviewed and interpreted this imaging study as follows: Radiologist's impression: Obtained today 07/25/2021: __ CT scan - abdomen: Attestation: I personally reviewed and interpreted this imaging study as follows: Radiologist's impression: IMPRESSION: No significant abnormality.? Addendum: IMPRESSION: Diffuse fatty infiltration of the liver with hepatomegaly. Distended gallbladder with a few small calcifications about its wall but without evidence of acute cholecystitis. Left renal cyst. Question some impression upon the superior aspect of the inferior vena cava from liver as described. Critical Care Time Critical Care Time Critical Care Time: No Discharge Plan Discharge Clinical Impression: Excessive drinking alcohol, Dark brown-colored urine, Jaundice, GERD (gastroesophageal reflux disease), Elevated liver function tests Patient Disposition: Admitted As Inpatient
[2021-07-25] MEDS: 0.9 % Sodium Chloride 1,000 ML 999 ML IV ×2 (11:27→13:16)
[2021-07-25] MEDS: ondansetron HCL 4 MG/2 ML VIAL IVPUSH ×2 (11:28→21:33)
[2021-07-25] MEDS: iohexoL 350 MG/ML 100 ML INFUS..BTL IV (13:07)
[2021-07-25] MEDS: Potassium Chloride/H20 10 MEQ/100 ML PIGGYBACK 100 MEQ IV ×4 (13:22→23:17)
[2021-07-25] MEDS: Potassium Chloride ER 20 MEQ TAB.ER.PRT 40 MEQ PO (13:22)
--- NOTE | 2021-07-25 18:48 | PM.IMHP ---
History of Present Illness Date of Service: 07/25/21 Attending physician on admission: Osiel Conroy Chief Complaint: Nausea vomiting and Elevated LFTs 50-year-old gentleman diagnosed to have COVID-19 infection approximately 2 weeks,noted to be to have dark-colored urine, and at work colleagues noticed that he is jaundice therefore went to primary care physician labs were drawn patient was directed to go to [facility] due to abnormal LFTs, patient came to [facility] on July 24 and noted to have significantly elevated LFTs with symptoms of nausea, vomiting, and abdominal ultrasound was obtained that showed hepatomegaly with diffusely increased echogenicity of the liver consistent with fatty infiltration/hepatocellular disease, case was discussed with Dr. Bright from Gastroenterology and she recommended follow-up with her next day, this morning patient went to see Dr. Bright, where he was noted to have nausea vomiting therefore referred to [facility] for IV hydration and for continued monitoring of LFT, according to patient he has been having severe heartburn, causing nausea vomiting with decreased by mouth intake he also has intermittent diarrhea, as per patient he drinks 2-3 shots of vodka daily but in last 1 week he is only using 1 shot a day, give history of prior withdrawal tremors but no seizures, he complains of generalized weakness, denies fever chills no other acute issues In the emergency room CT abdomen and pelvis was obtained that showed some narrowing of the superior aspect of the inferior vena cava in this superior aspect of the liver with concern for some degree of Budd Chiari Therefore patient will undergo Doppler ultrasound Review of Systems Review of Systems: General no headache no dizziness no fever chills. CVS no chest pain, no palpitation. Respiratory no cough , no sob. Gastrointestinal heartburn, nausea and vomiting dark-colored urine Musculoskeletal no pain PMFSH Medical History GERD (gastroesophageal reflux disease) Hypertension Reactive depression Surgical History History of colonoscopy History of esophagogastroduodenoscopy (EGD) Hx of hernia repair Social History Are you a primary animal care provider to a significant other at home: No Do you presently have visiting nurse or other home services: No Cigarette Packs Per Day: 0.25 Cigarettes Per Day: 5.0 Years Smoked: 38 Advance Directives: No Advance Directives Information Provided: No service: No Current occupational status: employed Meds Allergies Allergy/AdvReac Type Severity Reaction Status Date / Time No Known Allergies Allergy Verified 07/25/21 09:35 [No Known Allergies*] Active Medications: Current Medications Al Hydroxide/Mg Hydroxide (Magnesium Hydrox/Alum Hydrox 30 Ml Oral.Susp) 15 ml PO ONCE ONE Stop: 07/25/21 18:43 Calcium Carbonate (Calcium Carbonate 750 Mg Tab.Chew) 750 mg PO Q6H PRN PRN Reason: heart burn Potassium Chloride () 10 meq in 100 mls @ 100 mls/hr IV Q1H LYUBOV Stop: 07/25/21 20:44 Potassium Chloride/Dextrose/Sod Cl () 20 meq in 1,000 mls @ 100 mls/hr IVCONT .Q10H LYUBOV Ondansetron HCl (Ondansetron Hcl 4 Mg/2 Ml Vial) 4 mg IVPUSH Q8H PRN PRN Reason: Nausea and Vomiting Pharmacy Consult (Consult Rx Perform Med Rec) 1 each MISCELLANE ONCE PRN PRN Reason: Consult order Sodium Chloride (0.9 % Sodium Chloride Flush 3 Ml Syringe) 3 ml IVFLUSH QSHIFT LYUBOV Physical Exam Vital Signs and Narrative: Vital Signs: Last Vital Signs Temp 97.6 F 07/25/21 10:39 Pulse 80 07/25/21 14:46 Resp 16 07/25/21 14:46 BP 140/92 H 07/25/21 14:46 Pulse Ox 96 07/25/21 14:46 BMI result Body Mass Index 27.1 Const: Other: General awake alert no acute distress. HEENT pupil equal round reactive to light icteric sclerae Neck supple no JVD. CVS regular rate rhythm, Respiratory lungs clear to auscultation, no respiratory distress, no wheeze, no rhonchi. Gastrointestinal abdomen soft, no right upper quadrant tenderness, bowel sounds audible, Extremities edema, tremors Neuro nonfocal Skin jaundice Psych appropriate affect Results Imaging Radiologist's Impressions: Impressions Abdomen/Pelvis CT 07/25/21 13:02 IMPRESSION: No significant abnormality. Fleischner guidelines were followed. Doppler Study Ultrasound 07/25/21 18:18 IMPRESSION: * The portal venous system as well as the hepatic veins are all patent. * Markedly echogenic liver consistent with hepatic steatosis * No evidence to suggest the presence of Budd-Chiari syndrome Assessment and Plan (1) Elevated liver function tests: Status: Acute (2) Hypercalcemia: Status: Acute (3) Dark brown-colored urine: Status: Acute (4) Vomiting: Qualifiers: Vomiting type: unspecified Nausea presence: without nausea Qualified Code(s): R11.11 - Vomiting without nausea Status: Acute (5) Alcoholic gastritis: Status: Acute (6) Alcohol abuse: Status: Acute (7) Tobacco use disorder: Status: Acute 50-year-old gentleman diagnosed to have COVID-19 approximately 2 weeks ago presented to [facility] due to jaundice with intractable nausea vomiting with history of daily alcohol consumption. intractable nausea vomiting Likely due to alcoholic gastritis and elevated LFT Since Pepcid and Prilosec are hepatotoxic will use Maalox and Tums Place on IV fluids antiemetics Elevated LFTs No abdominal pain Hepatitis-B and C serology negative, hepatitis-A antibody pending Patient denies Tylenol use Likely due to recent COVID infection versus alcoholic hepatitis Abnormal CT abdomen with concern for Budd-Chiari will follow abdominal ultrasound to rule out Budd-Chiari syndrome Follow LFTs BMP Being followed by Dr. Bright Hypokalemia Likely due to GI loss will replace and follow Alcohol use disorder At present patient has no signs of withdrawal, will place on CIWA protocol Care team consult Tobacco use disorder Will place on nicotine patch DVT prophylax with Lovenox Code status full code Quality Stroke Does the patient have a stroke diagnosis?: No VTE Prior VTE?: No VTE Risk Level:: Medical - moderate - high VTE Device Contraindication: N/A - Device Ordered VTE Drug Contraindication: Treatment Not Indicated
--- NOTE | 2021-07-25 19:05 | PHA.MEDREC ---
Pharmacy Consult ? Medication Reconciliation Pharmacy has completed the medication reconciliation.
[2021-07-25] MEDS: Magnesium Hydrox/Alum Hydrox 30 ML ORAL.SUSP 15 ML PO (19:25)
[2021-07-25] MEDS: Calcium Carbonate 750 MG TAB.CHEW PO (19:25)
[2021-07-25] MEDS: Nicotine 7 MG PATCH.TD24 TRANSDERMA (19:26)
[2021-07-25 19:39] LABS: COVID-19 Test Negative (Negative)
--- NOTE | 2021-07-25 19:39 | PC.NURSE ---
assisting primary RN- pt medicated per MAR, COVID swab sent. Pt expressing frustration re: noise in ED, stated just get a rag with some chloroform for her referring to different pt that is yelling.
[2021-07-25] MEDS: Enoxaparin Sodium 40 MG/0.4 ML SYRINGE SUBCUT (20:15)
[2021-07-25] MEDS: KCl 20 mEq in 5% Dex/0.9% Sod 20 MEQ/1,000 ML IV.SOLN 100 MEQ IVCONT (23:22)
[2021-07-26] VITALS (7 sets, daily range): BP systolic 134–150; BP diastolic 86–110; PULSE 69–94; RESP 18; TEMP 36–37.6; O2SAT 93–98
[2021-07-26] MEDS: diphenhydrAMINE HCL 25 MG TABLET PO (02:11)
[2021-07-26] MEDS: 0.9 % Sodium Chloride Flush 3 ML SYRINGE IVFLUSH ×2 (08:14→17:29)
[2021-07-26] MEDS: Calcium Carbonate 750 MG TAB.CHEW PO (08:14)
[2021-07-26] MEDS: ondansetron HCL 4 MG/2 ML VIAL IVPUSH (08:14)
[2021-07-26 09:51] LABS: Alanine Aminotransferase 291 U/L (0-40); Albumin Level 2.9 g/dL (3.5-5.0); Alkaline Phosphatase 246 U/L (39-117); Anion Gap 13 (12-20); Aspartate Amino Transferase 428 U/L (5-37); Bilirubin Total 6.3 mg/dL (0.0-1.0); Blood Urea Nitrogen 8 mg/dL (9-16); Calcium 9.5 mg/dL (8.4-10.2); Carbon Dioxide 26 mmol/L (22-29); Chloride 103 mmol/L (96-108); Cholesterol 357 mg/dL; Creatinine Clr Calc Pharmacy 131.4; Estimated Glomerular Filt Rate > 60; Glucose Random 146 mg/dL (60-115); HDL Cholesterol 8 mg/dL; Lipase 122 U/L (8-78); Magnesium 1.8 mg/dL (1.6-2.6); Potassium 3.5 mmol/L (3.3-5.1); Sodium 138 mmol/L (135-145); Total Protein 5.5 g/dL (6.5-8.0); Triglycerides 491 mg/dL
[2021-07-26] MEDS: Folic Acid 1 MG TABLET PO (10:51)
[2021-07-26] MEDS: Thiamine HCL 100 MG TABLET PO (10:52)
[2021-07-26] MEDS: Multivitamin TABLET 1 TAB PO (10:53)
[2021-07-26] MEDS: Nicotine 7 MG PATCH.TD24 TRANSDERMA (10:53)
[2021-07-26] MEDS: Omeprazole 40 MG CAPSULE.DR PO (11:27)
--- NOTE | 2021-07-26 13:46 | MHC.CM.PN ---
PT IS AN EMPLOYEE IT IS NOT EXPECTED THAT HE WILL BREANNA SERVLEONARDOIS WHEN DCD CM WILL FOLLOW
--- NOTE | 2021-07-26 14:05 | P.PNIM_ITS ---
Subjective Subjective Date of Service: 07/26/21 Interval History: nausea + abd discomfort improved not tremulous Review of Systems Review of Systems: Yes all other systems are reviewed and are negative Physical Exam Vital Signs: Vital Signs: Last Vital Signs Temp 96.8 F 07/26/21 12:00 Pulse 70 07/26/21 12:00 Resp 18 07/26/21 12:00 BP 150/110 H 07/26/21 12:00 Pulse Ox 95 07/26/21 12:00 BMI result Body Mass Index 27.1 Gen: in no acute distress HEENT: sclera icteric, moist mucus membranes Neck: supple Lungs: clear to auscultation bilaterally Heart: regular rate and rhythm, no murmurs Abd: soft, mild epigastric tenderness without rebound, non-distended Ext: no edema Skin: warm/well-perfused, jaundiced Neuro: alert and oriented x3, no focal findings Psych: appropriate affect Objective Data Active Medications Calcium Carbonate (Calcium Carbonate 750 Mg Tab.Chew) 750 mg PO Q6H PRN PRN Reason: heart burn Last Admin: 07/26/21 08:14 Dose: 750 mg Documented by: RUPINDER Enoxaparin Sodium (Enoxaparin Sodium 40 Mg/0.4 Ml Syringe) 40 mg SUBCUT Q24H [facility] Last Admin: 07/25/21 20:15 Dose: 40 mg Documented by: SUZE Folic Acid (Folic Acid 1 Mg Tablet) 1 mg PO DAILY [facility] Last Admin: 07/26/21 10:51 Dose: 1 mg Documented by: RUPINDER Multivitamins/Vitamin C (Multivitamin Tablet) 1 tab PO DAILY [facility] Last Admin: 07/26/21 10:53 Dose: 1 tab Documented by: RUPINDER Nicotine (Nicotine 7 Mg Patch.Td24) 7 mg TRANSDERMA DAILY [facility] Last Admin: 07/26/21 10:53 Dose: 7 mg Documented by: RUPINDER Omeprazole (Omeprazole 40 Mg Capsule.Dr) 40 mg PO DAILY@0630 [facility] Last Admin: 07/26/21 11:27 Dose: 40 mg Documented by: RUPINDER Ondansetron HCl (Ondansetron Hcl 4 Mg/2 Ml Vial) 4 mg IVPUSH Q8H PRN PRN Reason: Nausea and Vomiting Last Admin: 07/26/21 08:14 Dose: 4 mg Documented by: RUPINDER Pharmacy Consult (Consult Rx Perform Med Rec) 1 each MISCELLANE ONCE PRN PRN Reason: Consult order Sodium Chloride (0.9 % Sodium Chloride Flush 3 Ml Syringe) 3 ml IVFLUSH QSHIFT [facility] Last Admin: 07/26/21 08:14 Dose: 3 ml Documented by: RUPINDER Sucralfate (Sucralfate Oral Suspension 1 Gm/10 Ml Oral.Susp) 1 gm PO QIDACHS [facility] Thiamine HCl (Thiamine Hcl 100 Mg Tablet) 100 mg PO DAILY [facility] Last Admin: 07/26/21 10:52 Dose: 100 mg Documented by: RUPINDER Labs CBC & Chem 7: 07/26/21 05:52 Labs: Laboratory Results - last 24 hr 07/25/21 07/26/21 19:21 05:52 Anion Gap 13 Estim Creat Clear Calc 131.4 Estimated GFR > 60 Random Glucose 146 H Calcium 9.5 D Magnesium 1.8 Total Bilirubin 6.3 H Direct Bilirubin 5.0 H AST 428 H ALT 291 H Alkaline Phosphatase 246 H D Total Protein 5.5 L D Albumin 2.9 L D Triglycerides 491 Cholesterol 357 LDL Cholesterol, Calc TNP HDL Cholesterol 8 Lipase 122 H COVID-19 (RINKU) Negative COVID-19 Clin Com See Note Assessment and Plan (1) Alcohol abuse: Status: Acute (2) Alcoholic gastritis: Status: Acute (3) Alcoholic hepatitis: Status: Acute Assessment and Plan: hospital d#2 50yo M with AUD, recent Covid-19 admitted with jaundice, N/V # intractable N/V - likely EtOH gastritis - PPI, antiemetics, sobriety # EtOH hepatitis - MDF low, no steroids or pentoxyfilline indicated - US abd neg for Budd-Chiari, HBV/HCV neg - outpt GI f/u # AUD - Addiction Med consult - B vitamins - CIWA protocol # hypoK - repleted # tobacco abuse - NRT # VTE ppx - LMWH Quality Stroke Does the patient have a stroke diagnosis?: No VTE Prior VTE?: No VTE Risk Level:: Medical - moderate - high VTE Device Contraindication: N/A - Device Ordered VTE Drug Contraindication: Treatment Not Indicated
[2021-07-26] MEDS: Sucralfate Oral Suspension 1 GM/10 ML ORAL.SUSP PO ×2 (15:12→20:12)
[2021-07-26] MEDS: Ondansetron ODT 4 MG TAB.RAPDIS TRANSLINGU (15:13)
--- NOTE | 2021-07-26 16:02 | PM.GIPN ---
Subjective Subjective Date of Service: 07/26/21 Interval History: Continues to have nausea and intermittent vomiting which he attributes to worsening heartburn. Critical Care Time (minutes): 15 Physical Exam Vital Signs: Vital Signs: Last Vital Signs Temp 96.8 F 07/26/21 12:00 Pulse 70 07/26/21 12:00 Resp 18 07/26/21 12:00 BP 150/110 H 07/26/21 12:00 Pulse Ox 95 07/26/21 12:00 BMI result Body Mass Index 27.1 Const: General: ill appearing Eyes: Sclerae: scleral abnormal (jaundice) GI: Palpation (GI): Hepatomegaly present Neuro: Cranial nerves: Yes Normal hearing present Speech: No Abnormal speech present Psych: Affect: Anxious affect present Objective Data Labs CBC & Chem 7: 07/26/21 05:52 Labs: Laboratory Results - last 24 hr 07/25/21 07/26/21 19:21 05:52 Sodium 138 Potassium 3.5 Chloride 103 Carbon Dioxide 26 Anion Gap 13 BUN 8 L Creatinine 0.73 Estim Creat Clear Calc 131.4 Estimated GFR > 60 Random Glucose 146 H Calcium 9.5 D Magnesium 1.8 Total Bilirubin 6.3 H Direct Bilirubin 5.0 H AST 428 H ALT 291 H Alkaline Phosphatase 246 H D Total Protein 5.5 L D Albumin 2.9 L D Triglycerides 491 Cholesterol 357 LDL Cholesterol, Calc TNP HDL Cholesterol 8 Lipase 122 H COVID-19 (RINKU) Negative COVID-19 Clin Com See Note Procedures Date of Service Date of Service: 07/26/21 Progress Note: A&P Assessment and plan (1) Alcoholic hepatitis: Status: Acute (2) Elevated liver function tests: Status: Acute (3) Vomiting: Status: Acute (4) GERD (gastroesophageal reflux disease): Status: Acute Assessment and Plan: 50 year old [employer] [facility] employee with hypertension, GERD, known history of EtOH abuse, recent COVID 19 infection presented to [facility] ED on 07/24/21 with nausea, vomiting, jaundice and elevated LFTs and intermittent diarrhea COVID negative. PT denied recent acetaminiphen use. Elevated LFTs possibly related to recent COVID infection versus alcoholic hepatitis.? Hep B and C serologies were negative. Elevated Lipase likely related to liver disease - normal pancreas on CT scan. Pt was admitted on 07/25/21 due to repeated episodes of vomiting with dehydration and hypokalemia. LFTs improved today. RECOMMENDATIONS: 1. Agree with PO PPI for GERD and IV antiemetics 2. Sucralfate added for continuing heartburn, nausea and vomiting. 3. Follow LFTs 4. OK to DC home in the am on anti emetics and PPI twice daily if nausea and vomiting resolves. If symptoms persist, pt can be scheduled for an EGD on 07/28/21 Fall Risk Details Current Medications: Current Medications Calcium Carbonate (Calcium Carbonate 750 Mg Tab.Chew) 750 mg PO Q6H PRN PRN Reason: heart burn Last Admin: 07/26/21 08:14 Dose: 750 mg Documented by: Enoxaparin Sodium (Enoxaparin Sodium 40 Mg/0.4 Ml Syringe) 40 mg SUBCUT Q24H [facility] Last Admin: 07/25/21 20:15 Dose: 40 mg Documented by: Folic Acid (Folic Acid 1 Mg Tablet) 1 mg PO DAILY [facility] Last Admin: 07/26/21 10:51 Dose: 1 mg Documented by: Multivitamins/Vitamin C (Multivitamin Tablet) 1 tab PO DAILY [facility] Last Admin: 07/26/21 10:53 Dose: 1 tab Documented by: Nicotine (Nicotine 7 Mg Patch.Td24) 7 mg TRANSDERMA DAILY [facility] Last Admin: 07/26/21 10:53 Dose: 7 mg Documented by: Omeprazole (Omeprazole 40 Mg Capsule.Dr) 40 mg PO DAILY@0630 [facility] Last Admin: 07/26/21 11:27 Dose: 40 mg Documented by: Ondansetron HCl (Ondansetron Hcl 4 Mg/2 Ml Vial) 4 mg IVPUSH Q8H PRN PRN Reason: Nausea and Vomiting Last Admin: 07/26/21 08:14 Dose: 4 mg Documented by: Pharmacy Consult (Consult Rx Perform Med Rec) 1 each MISCELLANE ONCE PRN PRN Reason: Consult order Sodium Chloride (0.9 % Sodium Chloride Flush 3 Ml Syringe) 3 ml IVFLUSH QSHIFT [facility] Last Admin: 07/26/21 08:14 Dose: 3 ml Documented by: Sucralfate (Sucralfate Oral Suspension 1 Gm/10 Ml Oral.Susp) 1 gm PO QIDACHS [facility] Last Admin: 07/26/21 15:12 Dose: 1 gm Documented by: Thiamine HCl (Thiamine Hcl 100 Mg Tablet) 100 mg PO DAILY [facility] Last Admin: 07/26/21 10:52 Dose: 100 mg Documented by: Time Spent With Patient Time: Total time spent is greater than 50% in coordination of care (as documented) at patient's floor/unit and/or counseling patient: Time with patient: 15 - 24 minutes Quality Stroke Does the patient have a stroke diagnosis?: No VTE Prior VTE?: No VTE Risk Level:: Medical - moderate - high VTE Device Contraindication: N/A - Device Ordered VTE Drug Contraindication: Treatment Not Indicated
[2021-07-26] MEDS: traZODone HCL 50 MG TABLET PO (20:12)
[2021-07-26] MEDS: Enoxaparin Sodium 40 MG/0.4 ML SYRINGE SUBCUT (20:12)
[2021-07-27] MEDS: Omeprazole 40 MG CAPSULE.DR PO (05:30)
[2021-07-27 06:06] LABS: Hematocrit 34.9 % (42.0-52.0); Hemoglobin 11.5 g/dl (14.0-18.0); Mean Corpuscular Hemoglobin 33.5 pg (27.0-33.0); Mean Corpuscular Volume 101.7 fL (80.0-98.0); Mean Platelet Volume 11.7 fL (9.4-12.4); NRBC Pct Auto 0.5 /100WBC (0.0-0.2); Platelet Count 258 X10*3/uL (160-400); Red Blood Count 3.43 X10*6/uL (4.60-5.80); Red Cell Distribution Width 15.6 % (11.0-16.0); White Blood Count 5.7 X10*3/uL (4.8-10.8)
[2021-07-27 06:35] LABS: Alanine Aminotransferase 237 U/L (0-40); Albumin Level 2.9 g/dL (3.5-5.0); Alkaline Phosphatase 234 U/L (39-117); Anion Gap 13 (12-20); Aspartate Amino Transferase 262 U/L (5-37); Bilirubin Total 5.2 mg/dL (0.0-1.0); Blood Urea Nitrogen 7 mg/dL (9-16); Calcium 9.7 mg/dL (8.4-10.2); Carbon Dioxide 27 mmol/L (22-29); Chloride 101 mmol/L (96-108); Creatinine Clr Calc Pharmacy 126.2; Estimated Glomerular Filt Rate > 60; Glucose Random 124 mg/dL (60-115); Magnesium 1.6 mg/dL (1.6-2.6); Potassium 3.8 mmol/L (3.3-5.1); Sodium 137 mmol/L (135-145); Total Protein 5.6 g/dL (6.5-8.0)
[2021-07-27 08:00] VITALS: BP 148/93; PULSE 85; RESP 18; TEMP 36; O2SAT 94
[2021-07-27] MEDS: Thiamine HCL 100 MG TABLET PO (08:13)
[2021-07-27] MEDS: Nicotine 7 MG PATCH.TD24 TRANSDERMA (08:13)
[2021-07-27] MEDS: Sucralfate Oral Suspension 1 GM/10 ML ORAL.SUSP PO ×2 (08:13→11:15)
[2021-07-27] MEDS: Multivitamin TABLET 1 TAB PO (08:13)
[2021-07-27] MEDS: Folic Acid 1 MG TABLET PO (08:13)
[2021-07-27] MEDS: 0.9 % Sodium Chloride Flush 3 ML SYRINGE IVFLUSH ×2 (08:14→12:09)
--- NOTE | 2021-07-27 10:39 | MHC.RECOVSUP ---
Recovery Support note: Patient is a 50 year old Bahraini speaking male who presented to [facility] ED due to jaundice and was medically admitted. This speech writer was consulted due to reported alcohol use. This speech writer met with patient in [phone]-. Patient was watching television in the hospital bed with his partner at bedside. This speech writer offered patient opportunity to discuss alcohol use and recovery supports. Patient and partner do not believe this is necessary at this time. Encouraged patient to reach out to staff if he needs anything. This speech writer available as needed.
[2021-07-27 12:00] VITALS: BP 135/94; PULSE 79; RESP 18; TEMP 36.4; O2SAT 96
--- NOTE | 2021-07-27 12:48 | PM.DS ---
DS: Providers Provider Date of Service: 07/27/21 Date of admission: 07/25/21 18:37 Primary care physician: Ken Garcia PA-C Consults: 07/25/21 19:12 Consult to Care Team Routine Comment: Reason for consultation: etoh abuse Has provider been notified: No 07/26/21 14:05 Addiction Medicine Routine Consulting Provider: Katelin Ruiz Reason for consultation: EtOH abuse disorder DS: Diagnosis Discharge Diagnosis (1) Alcoholic hepatitis: Status: Acute (2) Elevated liver function tests: Status: Acute (3) Vomiting: Status: Acute (4) GERD (gastroesophageal reflux disease): Status: Acute (5) Alcoholic gastritis: Status: Acute DS: Summary Hospital Course Hospital Course: from admission H+P by hospitalist Osiel Conroy, 07/25/21: 50-year-old gentleman diagnosed to have COVID-19 infection approximately 2 weeks,noted to be to have dark-colored urine, and at work colleagues noticed that he is jaundice therefore went to primary care physician labs were drawn patient was directed to go to [facility] due to abnormal LFTs, patient came to [place] [facility] on July 24 and noted to have significantly elevated LFTs with symptoms of nausea, vomiting, and abdominal ultrasound was obtained that showed hepatomegaly with diffusely increased echogenicity of the liver consistent with fatty infiltration/hepatocellular disease, case was discussed with Dr. Bright from Gastroenterology and she recommended follow-up with her next day, this morning patient went to see Dr. Bright, where he was noted to have nausea vomiting therefore referred to [facility] for IV hydration and for continued monitoring of LFT, according to patient he has been having severe heartburn, causing nausea vomiting with decreased by mouth intake he also has intermittent diarrhea, as per patient he drinks 2-3 shots of vodka daily but in last 1 week he is only using 1 shot a day, give history of prior withdrawal tremors but no seizures, he complains of generalized weakness, denies fever chills no other acute issues In the emergency room CT abdomen and pelvis was obtained that showed some narrowing of the superior aspect of the inferior vena cava in this superior aspect of the liver with concern for some degree of Budd Chiari Therefore patient will undergo Doppler ultrasound This 50 year-old male with with alcohol use disorder and recent Covid-19 infection was admitted with jaundice and intractable nausea/vomiting. He was treated for alcoholic gastritis with PPI, sucralfate, and antiemetics. He was found to have EtOH hepatitis with low Maddrey discriminant function. US was negative for Budd-Chiari symdrome. HBV and HCV serologies were negative. His LFTs improved and his symptoms improved and he tolerated a regular diet. He is committed to sobriety and declined MAT; he can follow up with Addiction Medicine as an outpatient. He was instructed to follow up with his dispatcher relay and primary care physician in 1 week and to repeat LFTs in 4-5 days. Nicotine replacement was prescribed. Time Spent with Patient Time attestation: Total time spent providing and/or coordinating discharge services: Discharge coordination time: Greater than 30 minutes Quality: Stroke Does the patient have a stroke diagnosis?: No Physical Exam Vital Signs: Vital Signs: Last Vital Signs Temp 96.8 F 07/27/21 08:00 Pulse 85 07/27/21 08:00 Resp 18 07/27/21 08:00 BP 148/93 H 07/27/21 08:00 Pulse Ox 94 07/27/21 08:00 BMI result Body Mass Index 27.1 Gen: in no acute distress HEENT: sclera icteric, moist mucus membranes Neck: supple Lungs: clear to auscultation bilaterally Heart: regular rate and rhythm, no murmurs Abd: soft, non-tender, on-distended Ext: no edema Skin: warm/well-perfused, mildly jaundiced Neuro: alert and oriented x3, no focal findings Psych: appropriate affect DS: Data Data Completed and Pending Completed studies during hospitalization [Text1]: Laboratory Results WBC 5.7 X10*3/uL (4.8-10.8) 07/27/21 05:55 RBC 3.43 X10*6/uL (4.60-5.80) L 07/27/21 05:55 Hgb 12.1 g/dl (14.0-18.0) L 07/27/21 13:07 Hct 37.9 % (42.0-52.0) L 07/27/21 13:07 MCV 101.7 fL (80.0-98.0) H 07/27/21 05:55 MCH 33.5 pg (27.0-33.0) H 07/27/21 05:55 MCHC 33.0 g/dl (31.0-36.0) 07/27/21 05:55 RDW 15.6 % (11.0-16.0) 07/27/21 05:55 Plt Count 258 X10*3/uL (160-400) 07/27/21 05:55 MPV 11.7 fL (9.4-12.4) 07/27/21 05:55 Absolute Nucleated RBC 0.030 X10*3/uL (0.0-0.012) H 07/27/21 05:55 Nucleated RBC % (auto) 0.5 /100WBC (0.0-0.2) H 07/27/21 05:55 Sodium 137 mmol/L (135-145) 07/27/21 05:55 Potassium 3.8 mmol/L (3.3-5.1) 07/27/21 05:55 Chloride 101 mmol/L (96-108) 07/27/21 05:55 Carbon Dioxide 27 mmol/L (22-29) 07/27/21 05:55 Anion Gap 13 (12-20) 07/27/21 05:55 BUN 7 mg/dL (9-16) L 07/27/21 05:55 Creatinine 0.76 mg/dL (0.5-1.4) 07/27/21 05:55 Estim Creat Clear Calc 126.2 07/27/21 05:55 Estimated GFR > 60 07/27/21 05:55 Random Glucose 124 mg/dL (60-115) H 07/27/21 05:55 Calcium 9.7 mg/dL (8.4-10.2) 07/27/21 05:55 Magnesium 1.6 mg/dL (1.6-2.6) 07/27/21 05:55 Total Bilirubin 5.2 mg/dL (0.0-1.0) H 07/27/21 05:55 Direct Bilirubin 5.0 mg/dL (0.0-0.5) H 07/26/21 05:52 AST 262 U/L (5-37) H 07/27/21 05:55 ALT 237 U/L (0-40) H 07/27/21 05:55 Alkaline Phosphatase 234 U/L (39-117) H 07/27/21 05:55 Total Protein 5.6 g/dL (6.5-8.0) L 07/27/21 05:55 Albumin 2.9 g/dL (3.5-5.0) L 07/27/21 05:55 Triglycerides 491 mg/dL 07/26/21 05:52 Cholesterol 357 mg/dL 07/26/21 05:52 LDL Cholesterol, Calc TNP 07/26/21 05:52 HDL Cholesterol 8 mg/dL 07/26/21 05:52 Lipase 122 U/L (8-78) H 07/26/21 05:52 COVID-19 (RINKU) Negative (Negative) 07/25/21 19:21 COVID-19 Clin Com See Note 07/25/21 19:21 Impressions Abdomen/Pelvis CT 07/25/21 13:02 IMPRESSION: No significant abnormality. Fleischner guidelines were followed. Doppler Study Ultrasound 07/25/21 18:18 IMPRESSION: * The portal venous system as well as the hepatic veins are all patent. * Markedly echogenic liver consistent with hepatic steatosis * No evidence to suggest the presence of Budd-Chiari syndrome Discharge Plan Discharge Patient Disposition: Home, Self-Care Discharge Diagnosis: alcoholic hepatitis + gastritis, alcohol use disorder Referrals: Ken Garcia PA-C [Primary Care Provider] - 1 Week Nam Bright MD [Physician] - 1 Week Katelin Ruiz CNP [Nurse Practitioner] - 1 Week Discharge Medications: New multivitamin [Daily-Reynaldo] Tablet 1 tab PO DAILY Qty: 30 RF: 0 sucralfate 100 mg/mL Suspension 1 g PO QIDACHS Qty: 1200 RF: 0 folic acid 1 mg Tablet 1 mg PO DAILY Qty: 30 RF: 0 nicotine 7 mg/24 hr Patch 24 Hour 7 mg transdermal DAILY Qty: 30 RF: 0 thiamine mononitrate (vit B1) 100 mg Tablet 100 mg PO DAILY Qty: 30 RF: 0 omeprazole 40 mg capsule,delayed release(DR/EC) 40 mg PO BID Qty: 60 RF: 0 ondansetron HCl 4 mg tablet 4 mg PO Q8H PRN (Reason: nausea and vomiting) Qty: 14 RF: 0 Discontinued omeprazole 40 mg capsule,delayed release(DR/EC) 40 mg PO DAILY Qty: 90 RF: 0 Discharge Orders: Discharge Order (Routine); Ordered 07/27/21 Ordered By: Joseph Van Diet: advance to usual diet Activity on Discharge: As tolerated Stand Alone Forms: Patient Portal Discharge page Other Ambulatory Orders: Liver Panel (Routine) Timeframe: [id number] Facility: [facility] - Location: Laboratory Ordered By: Joseph Van Care Plan Goals: sobriety liver health stomach health Health Concerns: alcoholic hepatitis + gastritis, alcohol use disorder Plan of Treatment: avoid alcohol take vitamins as prescribed also take sucralfate as prescribed recheck labs 07/31 or 08/01/21 and follow up with Primary Care and Gastroenterology consider referral to Addiction Medicine [Katelin Ruiz NP] at [facility] for treatment of alcohol use disorder Assessment: see Discharge Summary Patient Instructions: Alcoholic Hepatitis (DC)
[2021-07-27 13:25] LABS: Hematocrit 37.9 % (42.0-52.0); Hemoglobin 12.1 g/dl (14.0-18.0)
--- NOTE | 2021-07-27 14:07 | MHC.CM.PN ---
PT TO DC HOME TODAY WITH NO SERVICES
== END 2021-07-27 15:19 | disposition home or self-care (01) | DRG 280 ==
LOC: HO.ED 18:15 → HO.EDOVER 18:56 → HO.S3 22:39
PROVIDERS: Internal Medicine Gastroenterology; Nurse Practitioner Family; Admitting Provider Hospitalist; Emergency Provider Emergency Medicine Emergency Medical Services; PCP Physician Assistant; Visit Provider Family Medicine
DX: K70.10 Alcoholic hepatitis without ascites (principal); E83.52 Hypercalcemia; I10 Essential (primary) hypertension; K29.20 Alcoholic gastritis without bleeding; E87.6 Hypokalemia; F17.210 Nicotine dependence, cigarettes, uncomplicated; F10.10 Alcohol abuse, uncomplicated; K21.9 Gastro-esophageal reflux disease without esophagitis; Z20.822 Contact with and (suspected) exposure to COVID-19; Z86.16 Personal history of COVID-19; Z71.6 Tobacco abuse counseling; Z79.899 Other long term (current) drug therapy
CPT/HCPCS: 36415; 74177; 80048; 80053; 80061; 80076; 83690; 83735; 85014; 85018; 85027; 87635; 93975; 96361; 96365; 96366; 96375; 99285; J1650; J2405; Q0163; Q9967

== ENCOUNTER 2021-08-04 09:46 | Outpatient (REF) | payer OTHER, SELFPAY ==
[2021-08-04 10:36] LABS: INTERNATIONAL NORM RATIO 0.9 (0.9-1.1); Prothrombin Time 10.5 SEC (9.9-13.0)
[2021-08-04 11:33] LABS: Alanine Aminotransferase 115 U/L (0-40); Albumin Level 3.4 g/dL (3.5-5.0); Alkaline Phosphatase 229 U/L (39-117); Anion Gap 12 (12-20); Aspartate Amino Transferase 132 U/L (5-37); Bilirubin Direct 1.9 mg/dL (0.0-0.5); Bilirubin Total 2.5 mg/dL (0.0-1.0); Blood Urea Nitrogen 11 mg/dL (9-16); Calcium 9.3 mg/dL (8.4-10.2); Carbon Dioxide 23 mmol/L (22-29); Chloride 107 mmol/L (96-108); Estimated Glomerular Filt Rate > 60; Glucose Random 74 mg/dL (60-115); Lipase 132 U/L (8-78); Potassium 4.8 mmol/L (3.3-5.1); Sodium 137 mmol/L (135-145); Total Protein 6.4 g/dL (6.5-8.0)
[2021-08-04 11:34] LABS: Folate > 20.0 ng/mL (> or = 4.0); Vitamin B12 1015 pg/mL (200-900)
[2021-08-04 13:00] LABS: Appearance Urine CLEAR; Glucose Urine UA NEG (NEG); Leukocyte Esterase Urine NEG (NEG); Nitrite Urine NEG (NEG); Specific Gravity - Urine >= 1.030 (1.005-1.025); Urine Blood NEG (NEG); Urine Ketones 5 MG/DL (NEG); Urine Protein TRACE MG/DL (NEG-TRACE)
[2021-08-04 13:02] LABS: Color Urine AMBER
[2021-08-07 15:21] LABS: HCV Log PCR <1.18 log IU/mL; HepC Viral Load <15 IU/mL
== END 2021-08-04 09:47 | disposition home or self-care (01) ==
LOC: HO.LAB 09:46
PROVIDERS: PCP Physician Assistant; Visit Provider Physician Assistant
DX: K70.10 Alcoholic hepatitis without ascites (principal); R30.0 Dysuria
CPT/HCPCS: 36415; 80048; 80076; 81003; 82607; 82746; 83690; 85610; 87522

== ENCOUNTER 2021-08-20 14:47 | Outpatient (REF) | payer OTHER, SELFPAY ==
[2021-08-20 15:11] LABS: Hematocrit 36.7 % (42.0-52.0); Hemoglobin 12.1 g/dl (14.0-18.0); Mean Corpuscular Hemoglobin 34.2 pg (27.0-33.0); Mean Corpuscular Volume 103.7 fL (80.0-98.0); Mean Platelet Volume 10.4 fL (9.4-12.4); Platelet Count 317 X10*3/uL (160-400); Red Blood Count 3.54 X10*6/uL (4.60-5.80); Red Cell Distribution Width 13.2 % (11.0-16.0); White Blood Count 7.7 X10*3/uL (4.8-10.8)
[2021-08-20 15:57] LABS: Alanine Aminotransferase 71 U/L (0-40); Albumin Level 3.9 g/dL (3.5-5.0); Alkaline Phosphatase 136 U/L (39-117); Anion Gap 13 (12-20); Aspartate Amino Transferase 52 U/L (5-37); Bilirubin Direct 0.7 mg/dL (0.0-0.5); Blood Urea Nitrogen 12 mg/dL (9-16); Calcium 9.8 mg/dL (8.4-10.2); Carbon Dioxide 26 mmol/L (22-29); Chloride 106 mmol/L (96-108); Estimated Glomerular Filt Rate > 60; Glucose Random 114 mg/dL (60-115); Lipase 94 U/L (8-78); Potassium 4.9 mmol/L (3.3-5.1); Sodium 140 mmol/L (135-145)
== END 2021-08-20 14:48 | disposition home or self-care (01) ==
LOC: HO.LAB 14:47
PROVIDERS: Internal Medicine Gastroenterology; PCP Physician Assistant; Visit Provider Family Medicine
DX: K70.10 Alcoholic hepatitis without ascites (principal)
CPT/HCPCS: 36415; 80053; 80076; 82248; 83690; 85027

== ENCOUNTER 2022-02-03 10:57 | Outpatient (REF) | payer OTHER, SELFPAY ==
[2022-02-03 11:49] LABS: Hematocrit 39.3 % (42.0-52.0); Hemoglobin 12.7 g/dl (14.0-18.0); Mean Corpuscular HGB Conc 32.3 g/dl (31.0-36.0); Mean Corpuscular Volume 105.4 fL (80.0-98.0); Mean Platelet Volume 10.7 fL (9.4-12.4); Platelet Count 480 X10*3/uL (160-400); Red Blood Count 3.73 X10*6/uL (4.60-5.80); Red Cell Distribution Width 14.8 % (11.0-16.0); White Blood Count 6.3 X10*3/uL (4.8-10.8)
[2022-02-03 12:02] LABS: INTERNATIONAL NORM RATIO 0.9 (0.9-1.1); Prothrombin Time 10.7 SEC (10.0-13.1)
[2022-02-03 12:38] LABS: TSH reflex Free T4 4.21 uIU/mL (0.32-4.0)
[2022-02-03 12:41] LABS: Alanine Aminotransferase 58 U/L (0-40); Albumin Level 3.8 g/dL (3.5-5.0); Alkaline Phosphatase 320 U/L (39-117); Anion Gap 18 (12-20); Aspartate Amino Transferase 78 U/L (5-37); Bilirubin Direct 1.6 mg/dL (0.0-0.5); Bilirubin Total 2.3 mg/dL (0.0-1.0); Blood Urea Nitrogen 8 mg/dL (9-16); Carbon Dioxide 24 mmol/L (22-29); Chloride 103 mmol/L (96-108); Estimated Glomerular Filt Rate > 60; Ethanol < 10 mg/dL; Glucose Random 149 mg/dL (60-115); Lipase 52 U/L (8-78); Potassium 4.8 mmol/L (3.3-5.1); Sodium 140 mmol/L (135-145); Total Protein 7.4 g/dL (6.5-8.0)
[2022-02-03 13:17] LABS: Creatinine Urine 220.37 mg/dL; Microalbum/Creatinine Ratio Ur 14.9 ug/mg cr
[2022-02-03 13:18] LABS: Free T4 (Free Thyroxine) 1.01 ng/dL (0.71-1.85)
[2022-02-03 14:45] LABS: Vitamin D 25-OH Total 33.8 ng/mL (>30)
[2022-02-04 05:33] LABS: Hepatitis A Antibody IgG Nonreactive (Nonreactive); ~Hepatitis A Antibody IgG 0.35 S/CO (0.00-0.99)
== END 2022-02-03 10:58 | disposition home or self-care (01) ==
LOC: HO.LAB 10:57
PROVIDERS: Internal Medicine Gastroenterology; PCP Physician Assistant; Visit Provider Physician Assistant
DX: I10 Essential (primary) hypertension (principal); K70.10 Alcoholic hepatitis without ascites; F10.220 Alcohol dependence with intoxication, uncomplicated
CPT/HCPCS: 36415; 80048; 80076; 82043; 82077; 82306; 83690; 84439; 84443; 85027; 85610; 86708

== ENCOUNTER 2022-03-05 12:22 | Outpatient (REF) | payer MEDICAID, SELFPAY ==
[2022-03-05 14:03] LABS: Alanine Aminotransferase 37 U/L (0-40); Albumin Level 4.1 g/dL (3.5-5.0); Alkaline Phosphatase 91 U/L (39-117); Aspartate Amino Transferase 41 U/L (5-37); Bilirubin Direct 0.3 mg/dL (0.0-0.5); Bilirubin Total 0.6 mg/dL (0.0-1.0); Estimated Glomerular Filt Rate > 60; Gamma Glutamyl Transpeptidase 206 U/L (11-51); Total Protein 7.5 g/dL (6.5-8.0)
[2022-03-06 08:02] LABS: ~Hepatitis A Antibody IgM Nonreactive (Nonreactive)
== END 2022-03-05 12:23 | disposition home or self-care (01) ==
LOC: HO.LAB 12:22
PROVIDERS: PCP Physician Assistant; Visit Provider Internal Medicine Gastroenterology
DX: F10.220 Alcohol dependence with intoxication, uncomplicated (principal); K21.9 Gastro-esophageal reflux disease without esophagitis; K70.10 Alcoholic hepatitis without ascites; R53.83 Other fatigue; A04.8 Other specified bacterial intestinal infections
CPT/HCPCS: 36415; 80076; 82565; 82977; 86709; 99212

== ENCOUNTER 2023-02-25 09:42 | Outpatient (AMB) | payer OTHER, SELFPAY ==
[2023-02-25 09:45] VITALS: BP 152/94; PULSE 109; O2SAT 99; BMI 27.7
--- NOTE | 2023-02-25 09:45 | A.OFFPC_ITS ---
Vital Signs 02/25/23 09:45 Height 6 ft Weight 204 lb 6 oz BMI 27.7 BP 152/94 H Blood Pressure Location Lt brachial Position Sitting Pulse 109 H Pulse Source Pulse Oximeter Pulse Oximetry (%) 99 Oxygen Delivery Method Room Air Intake Visit Reasons: Liver Failure Intake Note: Patient is here for hospital discharge follow up. Patient was discharged from hospital [facility] on 02/21/22 for Liver Failure/stomach issue. Pt needs a GI referral. Service Director Required: No Accompanied by: Self / Same As Patient Allergies No Known Allergies [No Known Allergies*] Allergy (Verified 02/25/23 10:00) Medication List - Last Reconciled 02/25/23 by Ken Garcia PA-C blood pressure test kit-large As directed clotrimazole 1% 1 appl topical BID 30 days lisinopril 5 mg PO DAILY 90 days naltrexone 50 mg PO DAILY 30 days nicotine 7 mg transdermal DAILY nicotine 1 patch transdermal DAILY 14 days nicotine 1 patch transdermal DAILY 14 days omeprazole 40 mg PO DAILY prednisone 10 mg PO DAILY 7 days sildenafil 100 mg PO ONCE PRN 7 days spironolactone 25 mg PO BID triamcinolone acetonide 0.1% 1 appl topical DAILY 30 days triamcinolone acetonide 0.1% 1 appl topical DAILY 30 days Tobacco use date assessed: 02/25/23 Dental Screening Dental Screen Date: 02/25/23 Did you have a dental visit in the last 12 months?: Yes Did you have a dental problem in the last 6 months where you did not have access to dental care?: No Was dental information given to patient?: Patient has dentist HPI Liver Failure HPI Details Patient is a 52-year-old male here today for ER follow-up visit. Patient has a past medical history significant for generalized anxiety disorder, alcohol use disorder, tobacco use disorder, hypertension. Recently seen at [facility] for acute abdominal pain. Patient found to have elevated liver enzymes, low magnesium, ascites was present. He reports he underwent abdominal paracentesis with 2L of fluid removed. He has quit drinking over the last 3 weeks without any seizure. He reports he stays adamant about continuing to abstain from alcohol. Will restart naltrexone. [facility] Medical History Alcohol abuse Alcoholic gastritis Alcoholic hepatitis Dark brown-colored urine Elevated liver function tests Excessive drinking alcohol GERD (gastroesophageal reflux disease) Hypercalcemia Hypertension Jaundice Reactive depression Tobacco use disorder Vomiting Surgical History History of colonoscopy History of esophagogastroduodenoscopy (EGD) Hx of hernia repair Social History Household Members: None Housing: Apartment Are you a primary rn homecare to a significant other at home: No Do you presently have visiting nurse or other home services: No Patient Tobacco Use Status: Former Tobacco user Quit Date: 2021 Tobacco use type: Cigarette Cigarette Packs Per Day: 0.25 Cigarettes Per Day: 3 Years Smoked: 38 Packs Per Year: 10 Packs per year/per ci.70 e-Cigarette/Vaping Use: Never Used Second Hand Smoke Exposure: No service: No Current occupational status: employed Cognitive needs: No Hearing needs: No Vision needs: No Questionnaire Thrive Questionnaire Date Thrive assessed: 09/22/22 MADYSON-7 AMB Questionnaire MADYSON-7 Date MADYSON - 7 assessed: 09/22/22 Source: Developed by Drs. Eladio Ma, Solange Cabrales, Florin Sawant and colleagues, with an educational jose alberto from [employer]. Review of Systems Const Denies headache(s) Eyes Denies loss of vision ENT Denies vertigo, Denies dizziness, Denies headache(s) and Denies sore throat Card Denies chest pain, Denies leg edema and Denies lightheadedness Resp Denies cough, Denies hemoptysis and Denies wheezing GI Denies abdominal pain, Denies melena, Denies constipation, Denies diarrhea and Denies vomiting Denies dysuria, Denies urinary frequency and Denies urinary urgency Musc Denies arthralgias, Denies joint swelling, Denies numbness and Denies tingling Neuro Denies Abnormal speech present, Denies behavioral changes, Denies vertigo, Denies dizziness, Denies headache(s), Denies loss of vision, Denies memory loss, Denies numbness and Denies tingling Psych Denies anxiety, Denies behavioral changes, Denies depression, Denies memory loss and Denies panic attacks Dustin/Lymph Denies easy bleeding and Denies easy bruising Aller/Immun Denies wheezing Physical exam (Primary Care) Vital Signs: Last Vital Signs Pulse 109 H 02/25/23 09:45 BP 152/94 H 02/25/23 09:45 Pulse Ox 99 02/25/23 09:45 Oxygen Delivery Method Room Air 02/25/23 09:45 BMI result Body Mass Index 27.7 Tobacco/Smoking Status: Tobacco use Status Tobacco use date assessed 02/25/23 02/25/23 09:46 Patient Tobacco Use Status Former Tobacco user 02/25/23 09:46 Tobacco use type Cigarette 02/25/23 09:46 e-Cigarette/Vaping Use Never Used 02/25/23 09:46 Thrive Assessment: Date of Thrive Assessment Date Thrive assessed 09/22/22 02/25/23 09:46 Const Other: NOTABLY JAUNDICE General: no acute distress, alert and awake Nutritional Appearance: well nourished Orientation/consciousness: oriented to person, oriented to place and oriented to time HENMT Ears: TM's normal bilaterally General nose exam: Normal nasal mucous membranes and turbinates present Eyes Conjunctivae: conjunctivae normal Sclerae: sclerae normal Pupils: Equal, round and reactive pupils present Neck Neck: Yes no lymphadenopathy and Yes no JVD Thyroid: Thyroid normal Carotids: no bruits Resp Effort & Inspection: normal respiratory effort and not tachypneic Auscultation: no crackles, no rales, no rhonchi and no wheezes Cardio Rate: regular rate Rhythm: regular rhythm Heart sounds: no murmurs and normal S1 and S2 GI Palpation (GI): Soft to palpation, Tenderness to palpation present (GI), Hepatosplenomegaly present, no hepatomegaly, no splenomegaly and Ascites present Auscultation: normal bowel sounds Skin General skin exam: no rashes or lesions noted and dry skin Neuro General: oriented to person, oriented to place and oriented to time Cranial nerves: Yes Equal, round and reactive pupils present Speech: No Abnormal speech present Gait exam (Neuro): Normal gait present Motor exam (neuro): no tremor noted Extrem Right upper extremity: full ROM Left upper extremity: full ROM Right lower extremity: full ROM; no edema Left lower extremity: full ROM; no edema Psych Mental Status: mental status grossly normal Speech and movement: Normal speech and movement present Affect: normal affect Attitude: cooperative Thought process: Normal thought process present Assessment and Plan Assessment & Plan (1) Alcoholic cirrhosis of liver with ascites: Code(s): K70.31 - Alcoholic cirrhosis of liver with ascites Plan: As per HPI patient recently admitted to quit it is in hospital for acute liver failure with ascites. Did undergo a paracentesis with L of fluid removed. He was placed on spironolactone He reports he has not drink and in 3 weeks. Still has evidence of ascites on physical exam today and slightly jaundice. Will refer him to gastroenterology for further evaluation. Will send for post hospital labs to evaluate his liver (2) Alcohol dependence: Code(s): F10.20 - Alcohol dependence, uncomplicated Qualifiers: Substance use status: with intoxication Complication of substance- induced condition: uncomplicated Qualified Code(s): F10.220 - Alcohol dependence with intoxication, uncomplicated Plan: He does understand he has a problem with alcohol. Has been using no trucks on the does not seem to be helping him with his alcohol cravings. Explained that he likely needs to see body specialist to start Vivitrol injections though patient declines at this time. Also spoke about 12 step program to start to get long-term sobriety and patient declines at this time. It is quite likely he would need another paracentesis in near future. (3) Insomnia: Code(s): G47.00 - Insomnia, unspecified Qualifiers: Insomnia type: primary Qualified Code(s): F51.01 - Primary insomnia (4) Lumbar spine pain: Code(s): M54.50 - Low back pain, unspecified Plan: Having lower lumbar spine pain likely secondary to his abdominal acute ascites. Will supply with meloxicam to use on a p.r.n. basis for his pain. Orders: Orders Liver Panel Today K70.31 - Alcoholic cirrhosis of liver with ascites Prothrombin Time INR Today K70.31 - Alcoholic cirrhosis of liver with ascites Basic Metabolic Panel Today K70.31 - Alcoholic cirrhosis of liver with ascites Magnesium Today K70.31 - Alcoholic cirrhosis of liver with ascites Referrals Gastroenterology Referral K70.31 - Alcoholic cirrhosis of liver with ascites Medications: New trazodone 25 mg (1/2 x 50 mg) PO DAILY 30 days 15 tabs 0RF G47.00 - Insomnia, unspecified, K70.31 - Alcoholic cirrhosis of liver with ascites meloxicam 15 mg PO DAILY 14 days 14 tabs 0RF M54.50 - Low back pain, unspecified thiamine HCl (vitamin B1) 100 mg PO DAILY 90 days 90 tabs 1RF K70.31 - Alcoholic cirrhosis of liver with ascites folic acid 1 mg PO DAILY 90 days 90 tabs 1RF K70.31 - Alcoholic cirrhosis of liver with ascites Refilled naltrexone 50 mg PO DAILY 30 days 30 tabs 3RF F10.220 - Alcohol dependence with intoxication, uncomplicated Coding Level of Care Code Est Pt Level 4 (74263) Diagnoses Alcoholic cirrhosis of liver with ascites K70.31 Alcohol dependence F10.220 Substance use status: with intoxication Complication of substance-induced condition: uncomplicated Insomnia F51.01 Insomnia type: primary Lumbar spine pain M54.50
== END 2023-02-25 10:27 | disposition home or self-care (01) ==
PROVIDERS: PCP Physician Assistant; Visit Provider Physician Assistant
DX: K70.31 Alcoholic cirrhosis of liver with ascites (principal); F10.220 Alcohol dependence with intoxication, uncomplicated; F51.01 Primary insomnia; M54.50 Low back pain, unspecified
CPT/HCPCS: 99214

== ENCOUNTER 2023-03-16 10:48 | Outpatient (AMB) | payer OTHER, SELFPAY ==
[2023-03-16 10:50] VITALS: BP 90/68; PULSE 100; O2SAT 100; BMI 25.0
--- NOTE | 2023-03-16 10:50 | A.OFFPC_ITS ---
Vital Signs 03/16/23 10:50 Height 6 ft Weight 184 lb BMI 25.0 BP 90/68 Blood Pressure Location Lt brachial Position Sitting Pulse 100 Pulse Source Pulse Oximeter Temp Source Skin Pulse Oximetry (%) 100 Oxygen Delivery Method Room Air Intake Visit Reasons: Annual Exam Intake Note: Patient is here today for a physical. Hospitality Specialist Required: No Allergies No Known Allergies [No Known Allergies*] Allergy (Verified 03/16/23 11:09) Medication List - Last Reconciled 03/16/23 by MANDY Lutz blood pressure test kit-large As directed clotrimazole 1% 1 appl topical BID 30 days folic acid 1 mg PO DAILY 90 days lisinopril 5 mg PO DAILY 90 days meloxicam 15 mg PO DAILY 14 days naltrexone 50 mg PO DAILY 30 days nicotine 7 mg transdermal DAILY nicotine 1 patch transdermal DAILY 14 days nicotine 1 patch transdermal DAILY 14 days omeprazole 40 mg PO DAILY sildenafil 100 mg PO ONCE PRN 7 days spironolactone 25 mg PO BID 90 days thiamine HCl (vitamin B1) 100 mg PO DAILY 90 days trazodone 25 mg (1/2 x 50 mg) PO DAILY 30 days triamcinolone acetonide 0.1% 1 appl topical DAILY 30 days triamcinolone acetonide 0.1% 1 appl topical DAILY 30 days Tobacco use date assessed: 03/16/23 Dental Screening Dental Screen Date: 03/16/23 Did you have a dental visit in the last 12 months?: Yes Did you have a dental problem in the last 6 months where you did not have access to dental care?: No Was dental information given to patient?: Patient has dentist HPI Annual Exam HPI Details Patient is a 52-year-old male who presents today for physical exam. Patient of LEO Garcia. medical history significant for anxiety, smoker-reports smoking 4 cigarettes per day for about 40 years now-will refer for low-dose chest CT scan, GERD, hypertension, alcohol dependence- on naltrexone-reports not having alcoholic drink in 33 days now, alcoholic cirrhosis of liver with ascites-followed by GI Dr. London - reports he did have paracentesis yesterday at [facility] - 4L removed, insomnia. Patient will call for an eye exam. Dentist visit up-to-date. Up-to-date with colonoscopy and repeat colonoscopy in 2024. Also discussed patient's need for prostate cancer screening, he has order from his PCP, patient was encouraged to complete blood work from his PCP. Patient denies shortness of breath or chest pain. Up-to-date with immunizations. [facility] Medical History Alcoholic hepatitis Tobacco use disorder Alcohol abuse Alcoholic gastritis Elevated liver function tests Hypercalcemia Dark brown-colored urine Jaundice Vomiting Excessive drinking alcohol Reactive depression GERD (gastroesophageal reflux disease) Hypertension Surgical History History of esophagogastroduodenoscopy (EGD) History of colonoscopy Hx of hernia repair Social History Household Members: None Housing: Apartment Are you a primary healthcare educator to a significant other at home: No Do you presently have visiting nurse or other home services: No Patient Tobacco Use Status: Former Tobacco user Quit Date: 2021 Tobacco use type: Cigarette Cigarette Packs Per Day: 0.25 Cigarettes Per Day: 3 Years Smoked: 38 e-Cigarette/Vaping Use: Never Used Second Hand Smoke Exposure: No service: No Current occupational status: employed Cognitive needs: No Hearing needs: No Vision needs: No Questionnaire PHQ-9 Over the last 2 weeks, how often have you been bothered by any of the following problems? 1. Little interest or pleasure in doing things: not at all 2. Feeling down, depressed, or hopeless: not at all 3. Trouble falling or staying asleep, or sleeping too much: not at all 4. Feeling tired or having little energy: not at all 5. Poor appetite or overeating: not at all 6. Feeling bad about yourself - or that you are a failure or have let yourself or your family down: not at all 7. Trouble concentrating on things, such as reading the newspaper or watching television: not at all 8. Moving or speaking so slowly that other people could have noticed. Or the opposite - being so fidgety or restless that you have been moving around a lot more than usual: not at all 9. Thoughts that you would be better off or of hurting yourself in some way: not at all Total score: 0 Depression Screening Interpretation: Negative 38434 - PHQ-9 Billing: Yes Source: Developed by Drs. Eladio Ma, Florin Heart and colleagues, with an educational jose alberto from [email or web address]. Thrive Questionnaire Date Thrive assessed: 03/16/23 I am a: Patient What is your living situation today?: I have a steady place to live Within the past 12 months, did the food you bought not last and you didn't have the money to get more?: Never true Within the past 12 months, did you worry whether your food would run out before you got money to buy more?: Never true Currently or been in a relationship where the following occur: no concerns reported AUDIT C Alcohol Use Questionnaire (AUDIT-C) 1. How often do you have a drink containing alcohol?: Never 3. How often do you have six or more drinks on one occasion?: Never Total Score: 0 Score Reviewed/Action Taken: No MADYSON-7 AMB Questionnaire MADYSON-7 Date MADYSON - 7 assessed: 03/16/23 Feeling nervous, anxious, or on edge: 0 = Not at all Not being able to stop or control worryin = Not at all Worrying too much about different things: 0 = Not at all Trouble relaxin = Not at all Being so restless that it is hard to sit still: 0 = Not at all Becoming easily annoyed or irritable: 0 = Not at all Feeling afraid as if something awful might happen: 0 = Not at all Total MADYSON-7 score (0-4 normal; 5-9 mild; 10-14 moderate; 15-21 severe): 0 Source: Developed by Drs. Eladio Ma, Florin Heart and colleagues, with an educational jose alberto from [email or web address]. MADYSON-7 Assessment Billing MADYSON-7 Assessment Tool: MADYSON-7 Assessment 99287 Review of Systems Const Denies body aches, Denies chills, Denies fever(s) and Denies headache(s) Eyes Denies change in vision ENT Denies dizziness, Denies otalgia, Denies headache(s), Denies nasal discharge, Denies sinus pain and Denies sore throat Card Denies chest pain, Denies edema, Denies lightheadedness and Denies dyspnea Resp Denies cough, Denies dyspnea and Denies wheezing GI Denies abdominal pain, Denies constipation, Denies diarrhea, Denies nausea and Denies vomiting Denies dysuria Musc Denies myalgias Skin/Breast Details: Rash left arm Neuro Denies dizziness and Denies headache(s) Aller/Immun Denies wheezing Physical exam (Primary Care) Vital Signs: Last Vital Signs Pulse 100 03/16/23 10:50 BP 90/68 03/16/23 10:50 Pulse Ox 100 03/16/23 10:50 Oxygen Delivery Method Room Air 03/16/23 10:50 BMI result Body Mass Index 25.0 Tobacco/Smoking Status: Tobacco use Status Tobacco use date assessed 03/16/23 03/16/23 10:52 Patient Tobacco Use Status Former Tobacco user 03/16/23 10:52 Tobacco use type Cigarette 03/16/23 10:52 e-Cigarette/Vaping Use Never Used 03/16/23 10:52 PHQ-9: PHQ-9 Score PHQ-9: Total score 0 03/16/23 11:08 Depression Screening Interpretation: Negative Thrive Assessment: Date of Thrive Assessment Date Thrive assessed 03/16/23 03/16/23 10:52 Currently or been in a relationship where the following occur: no concerns reported Const General: cooperative and no acute distress Orientation/consciousness: patient oriented x3 HENMT Head: Yes normocephalic and Yes atraumatic Ears: TM's normal bilaterally Face and sinus: Yes sinuses nontender Mouth: oropharynx normal and moist mucous membranes Throat: Yes posterior oropharynx normal Eyes General: appearance normal, both eyes and all related structures Pupils: Equal, round and reactive pupils present EOM: EOMs intact bilaterally Neck Neck: Yes normal visual inspection, Yes full ROM and Yes no lymphadenopathy Thyroid: Thyroid normal Resp Effort & Inspection: normal respiratory effort and able to speak in complete sentences Auscultation: clear to auscultation bilaterally, no crackles, no rales, no rhonchi and no wheezes Cardio Rate: regular rate Rhythm: regular rhythm Heart sounds: S1 normal heart sound present, S2 normal heart sound present and no murmurs GI Palpation (GI): Soft to palpation, not firm, nontender, no guarding, not rigid and no hepatosplenomegaly Auscultation: normal bowel sounds General: No CVA tenderness Back/Spine/Pelvis Back: No CVA tenderness Skin Other: Left arm with moderate amount of erythematous flat areas noted, nontender, no signs of infection noted, patient denies pruritus-encouraged to continue monitor Neuro General: patient oriented x3 Cranial nerves: Yes Equal, round and reactive pupils present Gait exam (Neuro): Normal gait present Extrem General: Yes full ROM and No edema Assessment and Plan Assessment & Plan (1) Insomnia: Code(s): G47.00 - Insomnia, unspecified Qualifiers: Insomnia type: primary Qualified Code(s): F51.01 - Primary insomnia Plan: Reinforced sleep hygiene Continue trazodone 25 mg at bedtime (2) Alcoholic cirrhosis of liver with ascites: Code(s): K70.31 - Alcoholic cirrhosis of liver with ascites Plan: Continue to follow-up with GI specialist Dr. London (3) Alcohol dependence: Code(s): F10.20 - Alcohol dependence, uncomplicated Qualifiers: Substance use status: with intoxication Complication of substance- induced condition: uncomplicated Qualified Code(s): F10.220 - Alcohol dependence with intoxication, uncomplicated Plan: Continue naltrexone 50 mg daily Patient alcohol free for 33 days now - congratulated (4) HTN (hypertension): Code(s): I10 - Essential (primary) hypertension Qualifiers: Hypertension type: primary hypertension Qualified Code(s): I10 - Essential (primary) hypertension Plan: Goal BP equal or less than 140/90 Continue current treatment (5) GERD (gastroesophageal reflux disease): Code(s): K21.9 - Gastro-esophageal reflux disease without esophagitis Qualifiers: Esophagitis presence: without esophagitis Qualified Code(s): K21.9 - Gastro-esophageal reflux disease without esophagitis Plan: Stable with omeprazole Avoid GERD trigger foods Do not lay down 2-3 hours after evening meal (6) Smoker: Code(s): F17.200 - Nicotine dependence, unspecified, uncomplicated Plan: Encouraged smoking cessation Continue nicotine patches daily (7) Adult general medical exam: Code(s): Z00.00 - Encounter for general adult medical examination without abnormal findings Plan: Patient was encouraged to complete his blood work, he was provided with blood work slips Orders: Referrals Thoracic Surgery Referral F17.200 - Nicotine dependence, unspecified, uncomplicated Medications: Refilled trazodone 25 mg (1/2 x 50 mg) PO DAILY 30 days 15 tabs 0RF G47.00 - Insomnia, unspecified, K70.31 - Alcoholic cirrhosis of liver with ascites Coding Level of Care Code Est Pt Prev Care 40-64y(68931) Diagnoses Primary insomnia F51.01 Insomnia type: primary Alcoholic cirrhosis of liver with ascites K70.31 Alcohol dependence with uncomplicated intoxication F10.220 Substance use status: with intoxication Complication of substance-induced condition: uncomplicated Primary hypertension I10 Hypertension type: primary hypertension Gastroesophageal reflux disease without esophagitis K21.9 Esophagitis presence: without esophagitis Smoker F17.200 Adult general medical exam Z00.00 Additional Codes MADYSON-7 Assessment Billing - MADYSON-7 Assessment Tool: MADYSON-7 Assessment [id number] ([id number])
== END 2023-03-16 11:34 | disposition home or self-care (01) ==
PROVIDERS: PCP Physician Assistant; Visit Provider Nurse Practitioner Family
DX: Z00.00 Encounter for general adult medical examination without abnormal findings (principal); K70.31 Alcoholic cirrhosis of liver with ascites; F10.220 Alcohol dependence with intoxication, uncomplicated; I10 Essential (primary) hypertension; K21.9 Gastro-esophageal reflux disease without esophagitis; F17.210 Nicotine dependence, cigarettes, uncomplicated; F51.01 Primary insomnia
CPT/HCPCS: 99396

== ENCOUNTER 2023-04-19 07:15 | Outpatient (AMB) | payer OTHER, SELFPAY ==
[2023-04-19 07:18] VITALS: BP 102/52; PULSE 108; O2SAT 98; BMI 25.9
--- NOTE | 2023-04-19 07:18 | A.OFFPC_ITS ---
Vital Signs 04/19/23 07:18 Height 6 ft Weight 191 lb BMI 25.9 BP 102/52 L Blood Pressure Location Lt brachial Position Sitting Pulse 108 H Pulse Source Pulse Oximeter Pulse Oximetry (%) 98 Oxygen Delivery Method Room Air Intake Visit Reasons: left sided numbness and weakness Allergies No Known Allergies [No Known Allergies*] Allergy (Verified 04/19/23 07:18) Tobacco use date assessed: 03/16/23 Dental Screening Dental Screen Date: 04/19/23 Did you have a dental visit in the last 12 months?: Yes Did you have a dental problem in the last 6 months where you did not have access to dental care?: No Was dental information given to patient?: Patient has dentist HPI HPI Comments History of Present Illness Details 52-year-old male past medical history si gnificant for anxiety, GERD, hypertension, hx alcohol dependence, alcoholic cirrhosis, ED, insomnia, lumbar spine pain and psoriasis. Patient of Mejia Garcia, presents today for left upper thigh numbness x1 year. Patient denies acute injury denies any lumbar back pain. Patient reports heavy lifts leg up to chest numbness resolves. Patient denies any left leg weakness or footdrop. Patient currently follows with [facility] and undergoes weekly paracentesis. Discussed referral to physical therapy for possible lumbar radiculopathy symptoms causing numbness in left thigh. However patient feels he is not physically able to complete physical therapy. Patient has abstained from alcohol consumption for 70 days. Patient reports difficulty sleeping states trazodone does not work for him patient reports he was even taking 50 mg trazodone nightly with no effect. Patient also reports he is not sure if it is because of his anxiety that he is unable to sleep. Will trial hydroxyzine 25 mg at bedtime for anxiety/sleep [facility] Medical History Alcoholic hepatitis Tobacco use disorder Alcohol abuse Alcoholic gastritis Elevated liver function tests Hypercalcemia Dark brown-colored urine Jaundice Vomiting Excessive drinking alcohol Reactive depression GERD (gastroesophageal reflux disease) Hypertension Surgical History History of esophagogastroduodenoscopy (EGD) History of colonoscopy Hx of hernia repair Social History Household Members: None Housing: Apartment Are you a primary animal care taker to a significant other at home: No Do you presently have visiting nurse or other home services: No Patient Tobacco Use Status: Current everyday Tobacco user Tobacco use type: Cigarette Cigarette Packs Per Day: 0.25 Cigarettes Per Day: 3 Years Smoked: 38 Packs Per Year: 10 Packs per year/per ci.70 e-Cigarette/Vaping Use: Never Used Second Hand Smoke Exposure: No service: No Current occupational status: employed Cognitive needs: No Hearing needs: No Vision needs: Yes Questionnaire PHQ-9 Over the last 2 weeks, how often have you been bothered by any of the following problems? 1. Little interest or pleasure in doing things: not at all 2. Feeling down, depressed, or hopeless: not at all 3. Trouble falling or staying asleep, or sleeping too much: not at all 4. Feeling tired or having little energy: not at all 5. Poor appetite or overeating: not at all 6. Feeling bad about yourself - or that you are a failure or have let yourself or your family down: not at all 7. Trouble concentrating on things, such as reading the newspaper or watching television: not at all 8. Moving or speaking so slowly that other people could have noticed. Or the opposite - being so fidgety or restless that you have been moving around a lot more than usual: not at all 9. Thoughts that you would be better off or of hurting yourself in some way: not at all Total score: 0 Depression Screening Interpretation: Negative Depression Screening Done: Yes 85192 - PHQ-9 Billing: Yes Source: Developed by Drs. Eladio Ma, Solange Cabrales, Florin Sawant and colleagues, with an educational jose alberto from [employer]. Thrive Questionnaire Date Thrive assessed: 03/16/23 AUDIT C Alcohol Use Questionnaire (AUDIT-C) 1. How often do you have a drink containing alcohol?: Never 3. How often do you have six or more drinks on one occasion?: Never Total Score: 0 Score Reviewed/Action Taken: No MADYSON-7 AMB Questionnaire MADYSON-7 Date MADYSON - 7 assessed: 03/16/23 Source: Developed by Drs. Eladio Ma, Florin Heart and colleagues, with an educational jose alberto from [employer]. Review of Systems Const Denies chills, Denies fatigue, Denies fever(s) and Denies poor appetite Eyes Denies no additional complaints ENT Reports Normal hearing present Card Denies chest pain, Denies syncope, Denies rapid heart rate and Denies dyspnea Resp Denies cough and Denies dyspnea GI Denies change in stool character, Denies constipation, Denies diarrhea, Denies nausea and Denies vomiting Denies dysuria, Denies urinary frequency and Denies urinary urgency Neuro Reports Normal hearing present, Denies confusion and Denies syncope Psych Denies confusion Endo Denies fatigue Physical exam (Primary Care) Vital Signs: Last Vital Signs Pulse 108 H 04/19/23 07:18 BP 102/52 L 04/19/23 07:18 Pulse Ox 98 04/19/23 07:18 Oxygen Delivery Method Room Air 04/19/23 07:18 BMI result Body Mass Index 25.9 Tobacco/Smoking Status: Tobacco use Status Tobacco use date assessed 03/16/23 04/19/23 07:24 Patient Tobacco Use Status Current everyday Tobacco 04/19/23 07:24 Tobacco use type Cigarette 04/19/23 07:24 e-Cigarette/Vaping Use Never Used 04/19/23 07:24 PHQ-9: PHQ-9 Score PHQ-9: Total score 0 04/19/23 08:32 Depression Screening Interpretation: Negative Thrive Assessment: Date of Thrive Assessment Date Thrive assessed 03/16/23 04/19/23 07:24 Const General: No confusion Orientation/consciousness: No confusion HENMT Head: Yes normocephalic and Yes atraumatic Eyes Conjunctivae: conjunctivae normal Chest Chest palpation & inspection: normal inspection of the chest Resp Effort & Inspection: normal respiratory effort Auscultation: clear to auscultation bilaterally, no crackles, no rhonchi and no wheezes Cardio Rate: regular rate Rhythm: regular rhythm Heart sounds: S1 normal heart sound present and S2 normal heart sound present GI Inspection: Yes normal to inspection Neuro General: No confusion Cranial nerves: Yes Normal hearing present Extrem General: No edema Assessment and Plan Assessment & Plan (1) Left leg paresthesias: Comment: left thigh Code(s): R20.2 - Paresthesia of skin Plan: EMG and nerve conduction tests ordered to further evaluate. (2) Alcoholic cirrhosis of liver with ascites: Code(s): K70.31 - Alcoholic cirrhosis of liver with ascites Plan: Continue to follow with gastroenterology for weekly paracentesis. (3) Anxiety: Code(s): F41.9 - Anxiety disorder, unspecified Plan: Hydroxyzine 25 mg as needed at bedtime ordered for anxiety and insomnia. Plan Keep scheduled follow up with pcp Orders: Orders Complete Blood Count Auto Diff Today Z13.0 - Encounter for screening for diseases of the blood and blood-forming organs and certain disorders involving the immune mechanism Comprehensive Met. Panel Today K70.31 - Alcoholic cirrhosis of liver with ascites NE electromyogram (EMG) Today R20.2 - Paresthesia of skin NE nerve conduction velocity Today R20.2 - Paresthesia of skin Medications: New hydroxyzine HCl 25 mg PO BEDTIME PRN 30 tabs 0RF sleep Coding Level of Care Code Est Pt Level 4 (89330) Diagnoses Left leg paresthesias R20.2 Alcoholic cirrhosis of liver with ascites K70.31 Anxiety F41.9
== END 2023-04-19 07:47 | disposition home or self-care (01) ==
PROVIDERS: PCP Physician Assistant; Visit Provider Nurse Practitioner Family
DX: R20.2 Paresthesia of skin (principal); K70.31 Alcoholic cirrhosis of liver with ascites; F41.9 Anxiety disorder, unspecified
CPT/HCPCS: 99214

== ENCOUNTER 2023-05-19 08:26 | Outpatient (REF) | payer OTHER, SELFPAY | END 2023-05-19 08:27 | disposition home or self-care (01) | LOC: HO.NEURO 08:26 | PROVIDERS: PCP Physician Assistant; Visit Provider Nurse Practitioner Family | DX: R20.2 Paresthesia of skin (principal) | CPT/HCPCS: 95886; 95909 ==

== ENCOUNTER 2023-05-25 12:50 | Outpatient (AMB) | payer OTHER, SELFPAY ==
[2023-05-25 13:11] VITALS: BP 92/68; PULSE 103; O2SAT 99; BMI 22.5
--- NOTE | 2023-05-25 13:11 | MHC.PC.OV ---
Vital Signs 05/25/23 13:11 Height 6 ft Weight 166 lb 4 oz BMI 22.5 BP 92/68 Blood Pressure Location Lt brachial Position Sitting Pulse 103 H Pulse Source Pulse Oximeter Pulse Oximetry (%) 99 Oxygen Delivery Method Room Air Intake Visit Reasons: low BP and med changes Hand Launderer Required: No Bias Binding Cutter: Present Accompanied by: Significant Other Allergies No Known Allergies [No Known Allergies*] Allergy (Verified 05/25/23 13:28) Medication List - Last Reconciled 05/25/23 by Ken Garcia PA-C blood pressure test kit-large As directed clotrimazole 1% 1 appl topical BID 30 days folic acid 1 mg PO DAILY 90 days hydroxyzine HCl 25 mg PO BEDTIME PRN naltrexone 50 mg PO DAILY 30 days omeprazole 40 mg PO DAILY sildenafil 100 mg PO ONCE PRN 7 days spironolactone 25 mg PO BID 90 days thiamine HCl (vitamin B1) 100 mg PO DAILY 90 days trazodone 25 mg (1/2 x 50 mg) PO DAILY 30 days Tobacco use date assessed: 03/16/23 Dental Screening Dental Screen Date: 05/25/23 Did you have a dental visit in the last 12 months?: No Did you have a dental problem in the last 6 months where you did not have access to dental care?: No Was dental information given to patient?: Patient has dentist HPI low BP and med changes HPI Details Patient is a 52-year-old male here today for a follow-up visit. Patient has a past medical history significant for alcohol dependency (in remission), liver cirrhosis with acute abdominal ascites, hypertension, GERD, tobacco dependency, anxiety. Patient followed by card room manager and has been since receiving abdominal paracentesis on a weekly basis removing several L of fluid. He continues not to be able to work as he is feeling very weak, nauseous, unsteady on his feet. Has lost 60 lb due to water weight and reduced appetite. Has been started on spironolactone for his abdominal ascites. He reports his liver enzymes have drastically reduced since getting abdominal paracentesis and stop drinking alcohol over the last 2 months. Due to his current medical condition and his liver cirrhosis and his inability to function on a daily basis he has been more depressed. His partner is concerned about him. He is interested in speaking with a mental health therapist and perhaps starting medication for his depression. Needs letter for SSI as he has been trying to apply for disability as he has not been able to work. .. Hypertension: His lisinopril has been held as he has lost significant amount of weight and was found to have low blood pressures. Today in office low blood pressure noted. [facility] Medical History (Updated 05/25/23 @ 13:57 by Ken Garcia PA-C) Alcoholic hepatitis Tobacco use disorder Alcohol abuse Alcoholic gastritis Elevated liver function tests Hypercalcemia Dark brown-colored urine Jaundice Vomiting Excessive drinking alcohol Reactive depression GERD (gastroesophageal reflux disease) Hypertension Surgical History History of wisdom tooth extraction History of esophagogastroduodenoscopy (EGD) History of colonoscopy Hx of hernia repair Household Members: None Housing: Apartment Are you a primary critical care nurse practitioner to a significant other at home: No Do you presently have visiting nurse or other home services: No Patient Tobacco Use Status: Current everyday Tobacco user Tobacco use type: Cigarette Cigarette Packs Per Day: 0.25 Cigarettes Per Day: 3 Years Smoked: 38 e-Cigarette/Vaping Use: Never Used Second Hand Smoke Exposure: No service: No Current occupational status: employed Cognitive needs: No Hearing needs: No Vision needs: Yes Questionnaire Thrive Questionnaire Date Thrive assessed: 03/16/23 MADYSON-7 AMB Questionnaire MADYSON-7 Date MADYSON - 7 assessed: 03/16/23 Source: Developed by Drs. Eladio Ma, Solange Cabrales, Florin Sawant and colleagues, with an educational jose alberto from [employer]. Review of Systems Const Denies headache(s) Eyes Denies loss of vision ENT Denies vertigo, Denies dizziness, Denies headache(s) and Denies sore throat Card Denies chest pain, Denies leg edema and Denies lightheadedness Resp Denies cough, Denies hemoptysis and Denies wheezing GI Denies abdominal pain, Denies melena, Denies constipation, Denies diarrhea and Denies vomiting Denies dysuria, Denies urinary frequency and Denies urinary urgency Musc Denies arthralgias, Denies joint swelling, Denies numbness and Denies tingling Neuro Denies Abnormal speech present, Denies behavioral changes, Denies vertigo, Denies dizziness, Denies headache(s), Denies loss of vision, Denies memory loss, Denies numbness and Denies tingling Psych Denies anxiety, Denies behavioral changes, Denies depression, Denies memory loss and Denies panic attacks Dustin/Lymph Denies easy bleeding and Denies easy bruising Aller/Immun Denies wheezing Physical exam (Primary Care) Vital Signs: Last Vital Signs Pulse 103 H 05/25/23 13:11 BP 92/68 05/25/23 13:11 Pulse Ox 99 05/25/23 13:11 Oxygen Delivery Method Room Air 05/25/23 13:11 BMI result Body Mass Index 22.5 Tobacco/Smoking Status: Tobacco use Status Tobacco use date assessed 03/16/23 05/25/23 13:25 Patient Tobacco Use Status Current everyday Tobacco 05/25/23 13:25 Tobacco use type Cigarette 05/25/23 13:25 e-Cigarette/Vaping Use Never Used 05/25/23 13:25 Thrive Assessment: Date of Thrive Assessment Date Thrive assessed 03/16/23 05/25/23 13:25 Const Other: Pale appearing, muscle wasting over his extremities. General: healthy appearing, no acute distress, alert and awake Nutritional Appearance: well nourished Orientation/consciousness: oriented to person, oriented to place and oriented to time HENMT Ears: TM's normal bilaterally General nose exam: Normal nasal mucous membranes and turbinates present Eyes Conjunctivae: conjunctivae normal Sclerae: sclerae normal Pupils: Equal, round and reactive pupils present Neck Neck: Yes no lymphadenopathy and Yes no JVD Thyroid: Thyroid normal Carotids: no bruits Resp Effort & Inspection: normal respiratory effort and not tachypneic Auscultation: no crackles, no rales, no rhonchi and no wheezes Cardio Rate: regular rate Rhythm: regular rhythm Heart sounds: no murmurs and normal S1 and S2 GI Other: ABDOMEN SOMEWHAT REGION, MILD TENDERNESS TO PALPATION GLOBALLY Palpation (GI): not soft, Firmness to palpation present (GI), nontender, no hepatomegaly and no splenomegaly Auscultation: normal bowel sounds Skin General skin exam: no rashes or lesions noted and dry skin Neuro General: oriented to person, oriented to place and oriented to time Cranial nerves: Yes Equal, round and reactive pupils present Speech: No Abnormal speech present Gait exam (Neuro): Normal gait present Motor exam (neuro): no tremor noted Extrem Right upper extremity: full ROM Left upper extremity: full ROM Right lower extremity: full ROM; no edema Left lower extremity: full ROM; no edema Psych Mental Status: mental status grossly normal Speech and movement: Normal speech and movement present Affect: normal affect Attitude: cooperative Thought process: Normal thought process present Assessment and Plan Assessment & Plan (1) Alcoholic cirrhosis of liver with ascites: Code(s): K70.31 - Alcoholic cirrhosis of liver with ascites Plan: Patient now followed by gastroenterology at the [facility]. Does get weekly abdominal paracentesis with many L of fluid released. Unfortunately continues to feel unwell complaining of low energy, low appetite, nausea, vomiting. Has lost significant amount of weight since last office visit here. He has quit drinking over the last 2 months in diet congratulated him on this. Applying for disability as he is not able to work due to his medical condition of liver cirrhosis. written letter for him to bring to SSI department. (2) Liver cirrhosis, alcoholic: Code(s): K70.30 - Alcoholic cirrhosis of liver without ascites Qualifiers: Ascites presence: with ascites Qualified Code(s): K70.31 - Alcoholic cirrhosis of liver with ascites (3) Nausea: Code(s): R11.0 - Nausea Plan: Will start patient on anti and medic in hopes to reduce his nausea and increase his appetite. (4) MDD (major depressive disorder), recurrent episode, moderate: Code(s): F33.1 - Major depressive disorder, recurrent, moderate Plan: Has been battling with depression due to his medical issues. Not able to work and does not have a sense of purpose. He is interested in speaking with a mental health therapist in starting SSRI therapy to help him with his depression. Orders: Orders Comprehensive [place]. Panel Fast 05/25/23 K70.31 - Alcoholic cirrhosis of liver with ascites Microalbumin, Random (w Creat) 05/25/23 I10 - Essential (primary) hypertension TSH reflex Free T4 05/25/23 I10 - Essential (primary) hypertension Referrals Counseling Referral F33.1 - Major depressive disorder, recurrent, moderate, Z13.220 - Encounter for screening for lipoid disorders Medications: New ondansetron 8 mg PO Q12H 30 days 60 tabs 3RF R11.0 - Nausea sertraline 25 mg PO DAILY 90 days 90 tabs 1RF F33.1 - Major depressive disorder, recurrent, moderate Coding Level of Care Code Est Pt Level 4 (27681) Diagnoses Alcoholic cirrhosis of liver with ascites K70.31 Alcoholic cirrhosis of liver with ascites K70.31 Ascites presence: with ascites Nausea R11.0 MDD (major depressive disorder), recurrent episode, moderate F33.1
== END 2023-05-25 14:05 | disposition home or self-care (01) ==
PROVIDERS: PCP Physician Assistant; Visit Provider Physician Assistant
DX: K70.31 Alcoholic cirrhosis of liver with ascites (principal); F33.1 Major depressive disorder, recurrent, moderate; R11.0 Nausea
CPT/HCPCS: 99214

== ENCOUNTER 2023-06-30 09:43 | Outpatient (AMB) | payer OTHER, SELFPAY ==
--- NOTE | 2023-06-30 09:43 | MHC.PC.OV ---
Intake Visit Reasons: [facility] 06/25-sclerosis [phone] Intake Note: Patient is here to follow-up after a visit the emergency department at [facility] on 06/25/23 Foreign Correspondent Required: No Allergies No Known Allergies [No Known Allergies*] Allergy (Verified 06/30/23 10:19) Medication List - Last Reconciled 06/30/23 by Ken Garcia PA-C blood pressure test kit-large As directed ciprofloxacin HCl 500 mg PO DAILY clotrimazole 1% 1 appl topical BID 30 days folic acid 1 mg PO DAILY 90 days food supplemt, lactose-reduced (Ensure Plus High Protein) 1 ea PO TID 30 days furosemide 20 mg PO TID gabapentin mg PO BID hydroxyzine HCl 25 mg PO BEDTIME PRN lactulose PO omeprazole 40 mg PO DAILY ondansetron 8 mg PO Q12H 30 days sertraline 50 mg PO DAILY spironolactone 50 mg PO Q8H thiamine HCl (vitamin B1) 100 mg PO DAILY 90 days Tobacco use date assessed: 06/30/23 [facility] 06/25-[facility] [phone] HPI Details Patient is a 52-year-old male being evaluated today via telephone only. Currently having difficulty with transportation due to car issues. Recently admitted to [facility] for acute renal failure in the setting of alcohol liver cirrhosis requiring recurrent paracentesis . Is found have a creatinine level of 7.5. Nephrology evaluated and recommended being transferred to a tertiary hospital and was transferred to [facility] 06/14/2023. He reports he spent a few days at [facility]. Do not have discharge documents at this time. It seems he did have acute renal failure secondary to his abdominal ascites from his severe liver cirrhosis. Had his medications adjusted ( furosemide 60mg daily, aldactone 150mg daily). He is now home and reports he is feeling better. He reports he is able to eat 3 meals a day now. Gaining back his weight. He is still going for routine abdominal paracentesis with GI specialty in [facility]. [facility] Medical History Alcoholic hepatitis Tobacco use disorder Alcohol abuse Alcoholic gastritis Elevated liver function tests Hypercalcemia Dark brown-colored urine Jaundice Vomiting Excessive drinking alcohol Reactive depression GERD (gastroesophageal reflux disease) Hypertension Surgical History History of wisdom tooth extraction History of esophagogastroduodenoscopy (EGD) History of colonoscopy Hx of hernia repair Social History Household Members: None Housing: Apartment Are you a primary laboratory animal care veterinarian to a significant other at home: No Do you presently have visiting nurse or other home services: No Patient Tobacco Use Status: Current everyday Tobacco user Tobacco use type: Cigarette Cigarette Packs Per Day: 0.25 Cigarettes Per Day: 3 Years Smoked: 38 e-Cigarette/Vaping Use: Never Used Second Hand Smoke Exposure: No service: No Current occupational status: employed Cognitive needs: No Hearing needs: No Vision needs: Yes Questionnaire Thrive Questionnaire Date Thrive assessed: 03/16/23 AUDIT C Alcohol Use Questionnaire (AUDIT-C) 1. How often do you have a drink containing alcohol?: Never 3. How often do you have six or more drinks on one occasion?: Never Total Score: 0 Score Reviewed/Action Taken: No MADYSON-7 AMB Questionnaire MADYSON-7 Date MADYSON - 7 assessed: 03/16/23 Source: Developed by Drs. Eladio Ma, Solange Cabrales, Florin Sawant and colleagues, with an educational jose alberto from [employer]. Review of Systems Const Denies headache(s) Eyes Denies loss of vision ENT Denies vertigo, Denies dizziness, Denies headache(s) and Denies sore throat Card Denies chest pain, Denies leg edema and Denies lightheadedness Resp Denies cough, Denies hemoptysis and Denies wheezing GI Denies abdominal pain, Denies melena, Denies constipation, Denies diarrhea and Denies vomiting Denies dysuria, Denies urinary frequency and Denies urinary urgency Musc Denies arthralgias, Denies joint swelling, Denies numbness and Denies tingling Neuro Denies behavioral changes, Denies vertigo, Denies dizziness, Denies headache(s), Denies loss of vision, Denies memory loss, Denies numbness and Denies tingling Psych Denies anxiety, Denies behavioral changes, Denies depression, Denies memory loss and Denies panic attacks Dustin/Lymph Denies easy bleeding and Denies easy bruising Aller/Immun Denies wheezing Physical exam (Primary Care) Tobacco/Smoking Status: Tobacco use Status Tobacco use date assessed 06/30/23 06/30/23 09:47 Patient Tobacco Use Status Current everyday Tobacco 06/30/23 09:47 Tobacco use type Cigarette 06/30/23 09:47 e-Cigarette/Vaping Use Never Used 06/30/23 09:47 Thrive Assessment: Date of Thrive Assessment Date Thrive assessed 03/16/23 06/30/23 09:47 Telehealth Telehealth Location of provider rendering services: practice address Location of patient: address on file Patient Identification confirmed using: Name, : Yes Telehealth method: voice only (android) Patient verbally consented to treatment: Yes Patient verbally consented to billing insurance company: Yes Patient informed of any privacy concerns related to visit: Yes Minutes spent on Phone/Video with Pt.: 11 Assessment and Plan Assessment & Plan (1) Alcoholic cirrhosis of liver with ascites: Code(s): K70.31 - Alcoholic cirrhosis of liver with ascites Plan: As per HPI patient has severe liver cirrhosis with ascites to which he is getting regular paracentesis. He reports he will be placed on a liver transplant list. He continues to stay sober from alcohol over the last several months. (2) Liver cirrhosis, alcoholic: Code(s): K70.30 - Alcoholic cirrhosis of liver without ascites Qualifiers: Ascites presence: with ascites Qualified Code(s): K70.31 - Alcoholic cirrhosis of liver with ascites (3) ABRAHAM (acute kidney injury): Code(s): N17.9 - Acute kidney failure, unspecified Plan: Had acute renal failure likely secondary to his severe liver cirrhosis with abdominal ascites. His diuretic doses have been increased and now on Aldactone 150 mg and furosemide 60 mg. Continues to follow GI specialty at [facility] for abdominal taps. Orders: Orders Comprehensive Met. Panel Today N17.9 - Acute kidney failure, unspecified Coding Level of Care Code Tele New Pt Level 4 (24320) Diagnoses Alcoholic cirrhosis of liver with ascites K70.31 Alcoholic cirrhosis of liver with ascites K70.31 Ascites presence: with ascites ABRAHAM (acute kidney injury) N17.9
== END 2023-06-30 10:34 | disposition home or self-care (01) ==
LOC: HO.HMGH 09:43
PROVIDERS: PCP Physician Assistant; Visit Provider Physician Assistant
DX: K70.31 Alcoholic cirrhosis of liver with ascites (principal); N17.9 Acute kidney failure, unspecified
CPT/HCPCS: 99212

== ENCOUNTER 2023-08-31 09:31 | Outpatient (AMB) | payer OTHER, SELFPAY ==
[2023-08-31 09:59] VITALS: BP 104/70; PULSE 80; O2SAT 98; BMI 21.4
--- NOTE | 2023-08-31 09:59 | A.OFFPC_ITS ---
Vital Signs 08/31/23 09:59 Height 6 ft Weight 157 lb 13.616 oz BMI 21.4 BP 104/70 Blood Pressure Location Lt brachial Position Sitting Pulse 80 Pulse Source Pulse Oximeter Pulse Oximetry (%) 98 Oxygen Delivery Method Room Air Intake Visit Reasons: f/u Liver problems Hospice Patient Care Secretary Required: No Accompanied by: Self / Same As Patient Allergies No Known Allergies [No Known Allergies*] Allergy (Verified 08/31/23 10:16) Medication List - Last Reconciled 08/31/23 by Ken Garcia PA-C blood pressure test kit-large As directed clotrimazole 1% 1 appl topical BID 30 days folic acid 1 mg PO DAILY 90 days food supplemt, lactose-reduced (Ensure Plus High Protein) 1 ea PO TID 30 days furosemide 20 mg PO TID 30 days gabapentin mg PO BID hydroxyzine HCl 25 mg PO BEDTIME PRN lactulose 60 mL PO TID PRN 30 days niacin 250 mg PO DAILY 90 days nut.tx.gluc intol,lf,soy-fiber 0.07-0.8 gram-kcal/mL (Boost Glucose Control) 1 ea PO TID 30 days omeprazole 40 mg PO DAILY ondansetron 8 mg PO Q12H 30 days sertraline 50 mg PO DAILY spironolactone 50 mg PO Q8H 30 days thiamine HCl (vitamin B1) 100 mg PO DAILY 90 days trazodone 25 mg (1/2 x 50 mg) PO BEDTIME 90 days Tobacco use date assessed: 08/31/23 HPI f/u Liver problems HPI Details Patient is a 52-year-old male here today for follow-up visit Currently having difficulty with transportation due to car issues. Alcoholic liver cirrhosis: interval history-->> admitted to [facility] for acute renal failure in the setting of alcohol liver cirrhosis requiring recurrent paracentesis . Is found have a creatinine level of 7.5. Nephrology evaluated and recommended being transferred to a tertiary hospital and was transferred to [facility] 06/14/2023. He reports he spent a few days at [facility]. Do not have discharge documents at this time. It seems he did have acute renal failure secondary to his abdominal ascites from his severe liver cirrhosis. Had his medications adjusted ( furosemide 60mg daily, aldactone 150mg daily). Currently reports he is feeling better. He reports he is able to eat 3 meals a day now. Gaining back his weight. He is still going for routine abdominal paracentesis with GI specialty in [facility]. Depression: Has much improved since starting SSRI therapy and getting healthier. Smoker: He is drastically reduced him on though smoking he is doing. He reports having 4 cigarettes a week. He does have nicotine patches available to him [facility] Medical History Alcoholic hepatitis Tobacco use disorder Alcohol abuse Alcoholic gastritis Elevated liver function tests Hypercalcemia Dark brown-colored urine Jaundice Vomiting Excessive drinking alcohol Reactive depression GERD (gastroesophageal reflux disease) Hypertension Surgical History History of wisdom tooth extraction History of esophagogastroduodenoscopy (EGD) History of colonoscopy Hx of hernia repair Social History Household Members: None Housing: Apartment Are you a primary family day carer to a significant other at home: No Do you presently have visiting nurse or other home services: No Patient Tobacco Use Status: Current everyday Tobacco user Tobacco use type: Cigarette Cigarette Packs Per Day: 0.25 Cigarettes Per Day: 3 Years Smoked: 38 e-Cigarette/Vaping Use: Never Used Second Hand Smoke Exposure: No service: No Current occupational status: employed Cognitive needs: No Hearing needs: No Vision needs: Yes Questionnaire PHQ-9 Over the last 2 weeks, how often have you been bothered by any of the following problems? 1. Little interest or pleasure in doing things: not at all 2. Feeling down, depressed, or hopeless: not at all 3. Trouble falling or staying asleep, or sleeping too much: not at all 4. Feeling tired or having little energy: not at all 5. Poor appetite or overeating: not at all 6. Feeling bad about yourself - or that you are a failure or have let yourself or your family down: not at all 7. Trouble concentrating on things, such as reading the newspaper or watching television: not at all 8. Moving or speaking so slowly that other people could have noticed. Or the opposite - being so fidgety or restless that you have been moving around a lot more than usual: not at all 9. Thoughts that you would be better off or of hurting yourself in some way: not at all Total score: 0 Depression Screening Interpretation: Negative Depression Screening Done: Yes 35744 - PHQ-9 Billing: Yes Source: Developed by Drs. Eladio Ma, Solange Cabrales, Florin Sawant and colleagues, with an educational jose alberto from [employer]. Thrive Questionnaire Date Thrive assessed: 08/31/23 I am a: Patient What is your living situation today?: I have a steady place to live Within the past 12 months, did the food you bought not last and you didn't have the money to get more?: Never true Within the past 12 months, did you worry whether your food would run out before you got money to buy more?: Never true Do you have trouble paying for medicines?: No Do you have trouble getting transportation to medical appointments?: No Do you have trouble paying your heating and electricity bill?: No Do you have trouble taking care of your child, family member or friend?: No Do you have trouble with day-to-day activities such as bathing, preparing meals, shopping, managing finances, etc.?: No Are you currently unemployed and looking for a job?: No Are you interested in more education?: No Please select the resources that you would like help with: None Currently or been in a relationship where the following occur: no concerns reported THRIVE Score: 0 AUDIT C Alcohol Use Questionnaire (AUDIT-C) 1. How often do you have a drink containing alcohol?: Never 3. How often do you have six or more drinks on one occasion?: Never Total Score: 0 MADYSON-7 AMB Questionnaire MADYSON-7 Date MADYSON - 7 assessed: 08/31/23 Feeling nervous, anxious, or on edge: 0 = Not at all Not being able to stop or control worryin = Not at all Worrying too much about different things: 0 = Not at all Trouble relaxin = Not at all Being so restless that it is hard to sit still: 0 = Not at all Becoming easily annoyed or irritable: 0 = Not at all Feeling afraid as if something awful might happen: 0 = Not at all Total MADYSON-7 score (0-4 normal; 5-9 mild; 10-14 moderate; 15-21 severe): 0 Source: Developed by Drs. Eladio Ma, Solange Cabrales, Florin Sawant and colleagues, with an educational jose alberto from [employer]. MADYSON-7 Assessment Billing MADYSON-7 Assessment Tool: MADYSON-7 Assessment 06904 Review of Systems Const Denies headache(s) Eyes Denies loss of vision ENT Denies vertigo, Denies dizziness, Denies headache(s) and Denies sore throat Card Denies chest pain, Denies leg edema and Denies lightheadedness Resp Denies cough, Denies hemoptysis and Denies wheezing GI Denies abdominal pain, Denies melena, Denies constipation, Denies diarrhea and Denies vomiting Denies dysuria, Denies urinary frequency and Denies urinary urgency Musc Denies arthralgias, Denies joint swelling, Denies numbness and Denies tingling Neuro Denies Abnormal speech present, Denies behavioral changes, Denies vertigo, Denies dizziness, Denies headache(s), Denies loss of vision, Denies memory loss, Denies numbness and Denies tingling Psych Denies anxiety, Denies behavioral changes, Denies depression, Denies memory loss and Denies panic attacks Dustin/Lymph Denies easy bleeding and Denies easy bruising Aller/Immun Denies wheezing Physical exam (Primary Care) Vital Signs: Last Vital Signs Pulse 80 08/31/23 09:59 BP 104/70 08/31/23 09:59 Pulse Ox 98 08/31/23 09:59 Oxygen Delivery Method Room Air 08/31/23 09:59 BMI result Body Mass Index 21.4 Tobacco/Smoking Status: Tobacco use Status Tobacco use date assessed 08/31/23 08/31/23 10:13 Patient Tobacco Use Status Current everyday Tobacco 08/31/23 10:00 Tobacco use type Cigarette 08/31/23 10:00 e-Cigarette/Vaping Use Never Used 08/31/23 10:00 PHQ-9: PHQ-9 Score PHQ-9: Total score 0 08/31/23 10:13 Depression Screening Interpretation: Negative Thrive Assessment: Date of Thrive Assessment Date Thrive assessed 08/31/23 08/31/23 10:13 Currently or been in a relationship where the following occur: no concerns reported Const Other: Appears thin General: healthy appearing, no acute distress, alert and awake Nutritional Appearance: well nourished Orientation/consciousness: oriented to person, oriented to place and oriented to time HENMT Ears: TM's normal bilaterally General nose exam: Normal nasal mucous membranes and turbinates present Eyes Conjunctivae: conjunctivae normal Sclerae: sclerae normal Pupils: Equal, round and reactive pupils present Neck Neck: Yes no lymphadenopathy and Yes no JVD Thyroid: Thyroid normal Carotids: no bruits Resp Effort & Inspection: normal respiratory effort and not tachypneic Auscultation: no crackles, no rales, no rhonchi and no wheezes Cardio Rate: regular rate Rhythm: regular rhythm Heart sounds: no murmurs and normal S1 and S2 GI Palpation (GI): Soft to palpation, nontender, no hepatomegaly and no splenomegaly Auscultation: normal bowel sounds Skin General skin exam: no rashes or lesions noted and dry skin Neuro General: oriented to person, oriented to place and oriented to time Cranial nerves: Yes Equal, round and reactive pupils present Speech: No Abnormal speech present Gait exam (Neuro): Normal gait present Motor exam (neuro): no tremor noted Extrem Right upper extremity: full ROM Left upper extremity: full ROM Right lower extremity: full ROM; no edema Left lower extremity: full ROM; no edema Psych Mental Status: mental status grossly normal Speech and movement: Normal speech and movement present Affect: normal affect Attitude: cooperative Thought process: Normal thought process present Assessment and Plan Assessment & Plan (1) Liver cirrhosis, alcoholic: Code(s): K70.30 - Alcoholic cirrhosis of liver without ascites Qualifiers: Ascites presence: with ascites Qualified Code(s): K70.31 - Alcoholic cirrhosis of liver with ascites Plan: Has been resolving, still getting paracentesis every 2 weeks at [facility]. At times does get supplemental albumin. He reports his energy and his appetite back. (2) MDD (major depressive disorder), recurrent episode, moderate: Code(s): F33.1 - Major depressive disorder, recurrent, moderate Plan: Able to eat much better. Continues on sertraline 50 mg. He reports his depression is much improved since his health has been getting better. (3) ABRAHAM (acute kidney injury): Code(s): N17.9 - Acute kidney failure, unspecified Plan: Was previously in renal failure and admitted to [facility]. It was thought his abdominal ascites secondary to his liver failure was causing his renal failure. He is now on diuretics and doing much better. (4) Alcohol dependence: Code(s): F10.20 - Alcohol dependence, uncomplicated Qualifiers: Substance use status: with intoxication Complication of substance-in duced condition: uncomplicated Qualified Code(s): F10.220 - Alcohol dependence with intoxication, uncomplicated Plan: Alcohol dependence he has resolved. Has been sober now for over 10 months. He reports he has supportive family. Orders: Orders TSH reflex Free T4 Today R79.89 - Other specified abnormal findings of blood chemistry Prostate Specific Antigen Scr Today R79.89 - Other specified abnormal findings of blood chemistry, Z12.5 - Encounter for screening for malignant neoplasm of prostate Comprehensive [place]. Panel Fast Today K70.31 - Alcoholic cirrhosis of liver with ascites Microalbumin, Random (w Creat) Today I10 - Essential (primary) hypertension Medications: Discontinued folic acid Discontinued Reason: Doctor's Order 1 mg PO DAILY 90 days 90 tabs 1RF K70.31 - Alcoholic cirrhosis of liver with ascites Coding Level of Care Code Est Pt Level 4 (79818) Diagnoses Alcoholic cirrhosis of liver with ascites K70.31 Ascites presence: with ascites MDD (major depressive disorder), recurrent episode, moderate F33.1 ABRAHAM (acute kidney injury) N17.9 Alcohol dependence with uncomplicated intoxication F10.220 Substance use status: with intoxication Complication of substance-induced condition: uncomplicated Additional Codes MADYSON-7 Assessment Billing - MADYSON-7 Assessment Tool: MADYSON-7 Assessment [id number] ([id number])
== END 2023-08-31 10:35 | disposition home or self-care (01) ==
PROVIDERS: PCP Physician Assistant; Visit Provider Physician Assistant
DX: N17.9 Acute kidney failure, unspecified (principal); K70.31 Alcoholic cirrhosis of liver with ascites; F33.1 Major depressive disorder, recurrent, moderate; F10.220 Alcohol dependence with intoxication, uncomplicated; F17.210 Nicotine dependence, cigarettes, uncomplicated
CPT/HCPCS: 99214

== ENCOUNTER 2023-12-14 09:47 | Outpatient (AMB) | payer OTHER, SELFPAY ==
[2023-12-14 09:54] VITALS: BP 126/84; PULSE 70; O2SAT 99; BMI 25.0
--- NOTE | 2023-12-14 09:54 | MHC.PC.OV ---
Vital Signs 12/14/23 09:54 Height 6 ft Weight 184 lb 4 oz BMI 25.0 BP 126/84 Blood Pressure Location Lt brachial Position Sitting Pulse 70 Pulse Source Pulse Oximeter Pulse Oximetry (%) 99 Oxygen Delivery Method Room Air Intake Visit Reasons: 4 month f/u Supplier Development Manager Required: No Accompanied by: Self / Same As Patient Allergies No Known Allergies [No Known Allergies*] Allergy (Verified 12/14/23 10:01) Medication List - Last Reconciled 12/14/23 by Ken Garcia PA-C blood pressure test kit-large As directed clotrimazole 1% 1 appl topical BID 30 days food supplemt, lactose-reduced (Ensure Plus High Protein) 1 ea PO TID 30 days furosemide 20 mg PO TID 30 days gabapentin 100 mg PO BID 90 days hydroxyzine HCl 25 mg PO BEDTIME PRN lactulose 60 mL PO TID PRN 30 days lisinopril 5 mg PO DAILY omeprazole 40 mg PO DAILY ondansetron 8 mg PO Q12H 30 days sertraline 50 mg PO DAILY sodium bicarbonate 650 mg PO BID spironolactone 50 mg PO Q8H 30 days trazodone 25 mg (1/2 x 50 mg) PO BEDTIME 90 days Tobacco use date assessed: 08/31/23 Dental Screening Dental Screen Date: 12/14/23 Did you have a dental visit in the last 12 months?: Yes Did you have a dental problem in the last 6 months where you did not have access to dental care?: No Was dental information given to patient?: Patient has dentist HPI 4 month f/u HPI Details Patient is a 52-year-old male here today for follow-up visit, patient has a past medical history significant for major depressive disorder, liver cirrhosis related to alcohol use disorder, insomnia, hypertension Recently seen at [facility] ER was found to have a low sodium bicarb which has been replenished. Alcoholic liver cirrhosis: He continues to follow him sure gastroenterology. His medications have been optimized. He was requiring paracentesis is every week. Now only going to get paraencentesis nicolasa 3 weeks. . It has been over 10months sober from alcohol. .. Inguinal hernia: Followed by general surgeon at [facility]. Will holding off on surgery until abdominal ascites is more stabilized Depression: Has much improved since getting more healthier. He reports he has more energy. Still suffers from some anxiety. He is now off of SSRI therapy Still having trouble sleeping and would like to restart use of trazodone before bed. Smoker: He is drastically reduced him on though smoking he is doing. He reports having 4 cigarettes a week. He does have nicotine patches available to him [facility] Medical History Alcoholic hepatitis Tobacco use disorder Alcohol abuse Alcoholic gastritis Elevated liver function tests Hypercalcemia Dark brown-colored urine Jaundice Vomiting Excessive drinking alcohol Reactive depression GERD (gastroesophageal reflux disease) Hypertension Surgical History History of wisdom tooth extraction History of esophagogastroduodenoscopy (EGD) History of colonoscopy Hx of hernia repair Social History Household Members: None Housing: Apartment Are you a primary healthcare science specialist to a significant other at home: No Do you presently have visiting nurse or other home services: No Patient Tobacco Use Status: Current everyday Tobacco user Tobacco use type: Cigarette Cigarette Packs Per Day: 0.25 Cigarettes Per Day: 3 Years Smoked: 38 e-Cigarette/Vaping Use: Never Used Second Hand Smoke Exposure: No service: No Current occupational status: employed Cognitive needs: No Hearing needs: No Vision needs: Yes Questionnaire Thrive Questionnaire Date Thrive assessed: 08/31/23 MADYSON-7 AMB Questionnaire MADYSON-7 Date MADYSON - 7 assessed: 08/31/23 Source: Developed by Drs. Eladio Ma, Solange Cabrales, Florin Sawant and colleagues, with an educational jose alberto from [employer]. Review of Systems Const Denies headache(s) Eyes Denies loss of vision ENT Denies vertigo, Denies dizziness, Denies headache(s) and Denies sore throat Card Denies chest pain, Denies leg edema and Denies lightheadedness Resp Denies cough, Denies hemoptysis and Denies wheezing GI Denies abdominal pain, Denies melena, Denies constipation, Denies diarrhea and Denies vomiting Denies dysuria, Denies urinary frequency and Denies urinary urgency Musc Denies arthralgias, Denies joint swelling, Denies numbness and Denies tingling Neuro Denies Abnormal speech present, Denies behavioral changes, Denies vertigo, Denies dizziness, Denies headache(s), Denies loss of vision, Denies memory loss, Denies numbness and Denies tingling Psych Denies anxiety, Denies behavioral changes, Denies depression, Denies memory loss and Denies panic attacks Dustin/Lymph Denies easy bleeding and Denies easy bruising Aller/Immun Denies wheezing Physical exam (Primary Care) Vital Signs: Last Vital Signs Pulse 70 12/14/23 09:54 BP 126/84 12/14/23 09:54 Pulse Ox 99 12/14/23 09:54 Oxygen Delivery Method Room Air 12/14/23 09:54 BMI result Body Mass Index 25.0 Tobacco/Smoking Status: Tobacco use Status Tobacco use date assessed 08/31/23 12/14/23 09:58 Patient Tobacco Use Status Current everyday Tobacco 12/14/23 09:58 Tobacco use type Cigarette 12/14/23 09:58 e-Cigarette/Vaping Use Never Used 12/14/23 09:58 Thrive Assessment: Date of Thrive Assessment Date Thrive assessed 08/31/23 12/14/23 09:58 Const General: healthy appearing, no acute distress, alert and awake Nutritional Appearance: well nourished Orientation/consciousness: oriented to person, oriented to place and oriented to time HENMT Ears: TM's normal bilaterally General nose exam: Normal nasal mucous membranes and turbinates present Eyes Conjunctivae: conjunctivae normal Sclerae: sclerae normal Pupils: Equal, round and reactive pupils present Neck Neck: Yes no lymphadenopathy and Yes no JVD Thyroid: Thyroid normal Carotids: no bruits Resp Effort & Inspection: normal respiratory effort and not tachypneic Auscultation: no crackles, no rales, no rhonchi and no wheezes Cardio Rate: regular rate Rhythm: regular rhythm Heart sounds: no murmurs and normal S1 and S2 GI Palpation (GI): Soft to palpation, nontender, no hepatomegaly and no splenomegaly Auscultation: normal bowel sounds Skin General skin exam: no rashes or lesions noted and dry skin Neuro General: oriented to person, oriented to place and oriented to time Cranial nerves: Yes Equal, round and reactive pupils present Speech: No Abnormal speech present Gait exam (Neuro): Normal gait present Motor exam (neuro): no tremor noted Extrem Right upper extremity: full ROM Left upper extremity: full ROM Right lower extremity: full ROM; no edema Left lower extremity: full ROM; no edema Psych Mental Status: mental status grossly normal Speech and movement: Normal speech and movement present Affect: normal affect Attitude: cooperative Thought process: Normal thought process present Assessment and Plan Assessment & Plan (1) Liver cirrhosis, alcoholic: Code(s): K70.30 - Alcoholic cirrhosis of liver without ascites Qualifiers: Ascites presence: with ascites Qualified Code(s): K70.31 - Alcoholic cirrhosis of liver with ascites Plan: Has been resolving, he has followed by a servicing manager in [place] who reports his liver functions have nearly normalized. Still getting paracentesis every 3 weeks at [facility]. He has been taken off of furosemide and spironolactone. He reports his energy and his appetite back- feeling great (2) MDD (major depressive disorder), recurrent episode, moderate: Code(s): F33.1 - Major depressive disorder, recurrent, moderate Plan: Able to eat much better. He has stopped sertraline for unclear reason. He reports his depression has been better since he has been more healthy. Suffers with anxiety to which he uses hydroxyzine on an as needed basis. (3) Alcohol dependence: Code(s): F10.20 - Alcohol dependence, uncomplicated Qualifiers: Complication of substance-induced condition: uncomplicated Substance use status: with intoxication Qualified Code(s): F10.220 - Alcohol dependence with intoxication, uncomplicated Plan: Alcohol dependence he has resolved. Has been sober now for over 10 months. He reports he has supportive family. (4) Inguinal hernia: Code(s): K40.90 - Unilateral inguinal hernia, without obstruction or gangrene, not specified as recurrent Qualifiers: Laterality: unilateral Obstruction and gangrene presence: with obstruction but without gangrene Recurrence: non-recurrent Qualified Code(s): K40.30 - Unilateral inguinal hernia, with obstruction, without gangrene, not specified as recurrent Plan: Has a large inguinal hernia he would like repaired though holding off on surgery until abdominal ascites is more stabilized. Medications: Changed From trazodone 25 mg (1/2 x 50 mg) PO BEDTIME 90 days 45 tabs 1RF F33.1 - Major depressive disorder, recurrent, moderate To trazodone 50 mg PO BEDTIME 90 tabs 1RF 90 days F33.1 - Major depressive disorder, recurrent, moderate Refilled hydroxyzine HCl 25 mg PO BEDTIME PRN 30 tabs 3RF sleep F33.1 - Major depressive disorder, recurrent, moderate On Hold spironolactone Hold Comment: Doctor's Order 50 mg PO Q8H 30 days 90 tabs 1RF K70.31 - Alcoholic cirrhosis of liver with ascites furosemide Hold Comment: Doctor's Order 20 mg PO TID 30 days 90 tabs 1RF K70.31 - Alcoholic cirrhosis of liver with ascites Patient Instructions: Goal: Continue to abstain from alcohol. Continue follow-up with GI especially Barriers: Adherence to physical activity and healthy eating habits Coding Level of Care Code Est Pt Level 4 (42291) Diagnoses Alcoholic cirrhosis of liver with ascites K70.31 Ascites presence: with ascites MDD (major depressive disorder), recurrent episode, moderate F33.1 Alcohol dependence with uncomplicated intoxication F10.220 Complication of substance-induced condition: uncomplicated Substance use status: with intoxication Non-recurrent unilateral inguinal hernia with obstruction without gangrene K40.30 Laterality: unilateral Obstruction and gangrene presence: with obstruction but without gangrene Recurrence: non-recurrent
== END 2023-12-14 10:24 | disposition home or self-care (01) ==
PROVIDERS: PCP Physician Assistant; Visit Provider Physician Assistant
DX: K70.31 Alcoholic cirrhosis of liver with ascites (principal); F33.1 Major depressive disorder, recurrent, moderate; F10.220 Alcohol dependence with intoxication, uncomplicated; K40.30 Unilateral inguinal hernia, with obstruction, without gangrene, not specified as recurrent
CPT/HCPCS: 99214

== ENCOUNTER 2024-03-20 16:18 | Outpatient (AMB) | payer OTHER, SELFPAY ==
[2024-03-20 16:18] VITALS: BP 130/70; PULSE 92; O2SAT 94; BMI 28.5
--- NOTE | 2024-03-20 16:18 | A.OFFPC_ITS ---
Vital Signs 03/20/24 16:18 Height 6 ft Weight 210 lb BMI 28.5 BP 130/70 Blood Pressure Location Lt brachial Position Sitting Pulse 92 Pulse Source Pulse Oximeter Pulse Oximetry (%) 94 Oxygen Delivery Method Room Air Intake Visit Reasons: ear irrigation Gas Plant Worker Required: No Accompanied by: Self / Same As Patient Allergies No Known Allergies [No Known Allergies*] Allergy (Verified 03/20/24 16:23) Medication List - Last Reconciled 03/20/24 by Hannah Garrett PA-C blood pressure test kit-large As directed clotrimazole 1% 1 appl topical BID 30 days fluticasone propionate 50 mcg/actuation (Flonase Allergy Relief) 1 spray intranasal DAILY food supplemt, lactose-reduced (Ensure Plus High Protein) 1 ea PO TID 30 days food supplemt, lactose-reduced (Boost Plus) 1 ea PO DAILY 24 days furosemide 20 mg PO TID 30 days gabapentin 100 mg PO BID 90 days hydroxyzine HCl 25 mg PO BEDTIME PRN lactulose 60 mL PO TID PRN 30 days lisinopril 5 mg PO DAILY 90 days omeprazole 40 mg PO DAILY ondansetron 8 mg PO Q12H 30 days sildenafil 100 mg PO DAILY 7 days sodium bicarbonate 650 mg PO BID spironolactone 50 mg PO Q8H 30 days trazodone 50 mg PO BEDTIME 90 days Tobacco use date assessed: 08/31/23 Dental Screening Dental Screen Date: 12/14/23 HPI ear irrigation HPI Details Patient is a 52-year-old male here today for ear cleaning, patient has a past medical history significant for major depressive disorder, liver cirrhosis related to alcohol use disorder, insomnia, hypertension. Patient states for the last 3 weeks his ears have been feeling blocked worse on the left side. He does mentioned he is partially deaf in the left ear but has been having a crackling sensation and popping worse when he is leaning forward. He does mentioned he has been sneezing more often and has had some nonspecific upper respiratory symptoms. [facility] Medical History Alcoholic hepatitis Tobacco use disorder Alcohol abuse Alcoholic gastritis Elevated liver function tests Hypercalcemia Dark brown-colored urine Jaundice Vomiting Excessive drinking alcohol Reactive depression GERD (gastroesophageal reflux disease) Hypertension Surgical History History of wisdom tooth extraction History of esophagogastroduodenoscopy (EGD) History of colonoscopy Hx of hernia repair Social History Household Members: None Housing: Apartment Are you a primary healthcare business analyst to a significant other at home: No Do you presently have visiting nurse or other home services: No Patient Tobacco Use Status: Current everyday Tobacco user Tobacco use type: Cigarette Cigarette Packs Per Day: 0.25 Cigarettes Per Day: 3 Years Smoked: 38 e-Cigarette/Vaping Use: Never Used Second Hand Smoke Exposure: No service: No Current occupational status: employed Cognitive needs: No Hearing needs: No Vision needs: Yes Questionnaire PHQ-9 Over the last 2 weeks, how often have you been bothered by any of the following problems? 1. Little interest or pleasure in doing things: not at all 2. Feeling down, depressed, or hopeless: not at all 3. Trouble falling or staying asleep, or sleeping too much: not at all 4. Feeling tired or having little energy: not at all 5. Poor appetite or overeating: not at all 6. Feeling bad about yourself - or that you are a failure or have let yourself or your family down: not at all 7. Trouble concentrating on things, such as reading the newspaper or watching television: not at all 8. Moving or speaking so slowly that other people could have noticed. Or the opposite - being so fidgety or restless that you have been moving around a lot more than usual: not at all 9. Thoughts that you would be better off or of hurting yourself in some way: not at all Total score: 0 Depression Screening Interpretation: Negative Depression Screening Done: Yes 97090 - PHQ-9 Billing: Yes Source: Developed by Drs. Eladio Ma, Solange Cabrales, Florin Sawant and colleagues, with an educational jose alberto from [employer]. Thrive Questionnaire Date Thrive assessed: 08/31/23 AUDIT C Alcohol Use Questionnaire (AUDIT-C) 1. How often do you have a drink containing alcohol?: Never 3. How often do you have six or more drinks on one occasion?: Never Total Score: 0 MADYSON-7 AMB Questionnaire MADYSON-7 Date MADYSON - 7 assessed: 08/31/23 Source: Developed by Drs. Eladio Ma, Solange Cabrales, Florin Sawant and colleagues, with an educational jose alberto from [employer]. Review of Systems Const Denies chills and Denies fever(s) Eyes Reports no additional complaints ENT Details: Ear popping and fullness sensation. Loss of taste Denies otalgia and Denies sore throat Card Denies chest pain and Denies dyspnea Resp Denies dyspnea GI Reports no additional complaints Musc Reports no additional complaints Physical exam (Primary Care) BMI result Body Mass Index 28.5 Tobacco/Smoking Status: Tobacco use Status Tobacco use date assessed 08/31/23 12/14/23 09:58 Patient Tobacco Use Status Current everyday Tobacco 12/14/23 09:58 Tobacco use type Cigarette 12/14/23 09:58 e-Cigarette/Vaping Use Never Used 12/14/23 09:58 Depression Screening Interpretation: Negative Thrive Assessment: Date of Thrive Assessment Date Thrive assessed 08/31/23 12/14/23 09:58 Const General: cooperative, healthy appearing, comfortable and no acute distress Orientation/consciousness: patient oriented x3 HENMT Head: Yes normocephalic Ears: hearing grossly normal bilaterally, EAC's normal and TM abnormal wth effusion serous bilateral General nose exam: Normal external nose present Throat: Yes posterior oropharynx normal Eyes General: appearance normal, both eyes and all related structures Conjunctivae: conjunctivae normal Neck Neck: Yes full ROM and Yes no lymphadenopathy Resp Effort & Inspection: normal respiratory effort Auscultation: clear to auscultation bilaterally, no crackles, no rales, no rhonchi and no wheezes Cardio Rate: regular rate Rhythm: regular rhythm Skin General skin exam: no rashes or lesions noted Neuro General: patient oriented x3 Gait exam (Neuro): Normal gait present Extrem General: Yes normal to inspection, Yes full ROM and No edema Psych Affect: normal affect Attitude: cooperative Insight: Good insight present (Psych) Judgement: Good judgement present (Psych) Assessment and Plan Assessment & Plan (1) Serous otitis media: Code(s): H65.90 - Unspecified nonsuppurative otitis media, unspecified ear Plan: On exam patient found to have fluid behind bilateral eardrums without signs of infection. Advised patient to use [id number] allergy medications as well as Flonase to reduce the amount of fluid behind the ears. Patient is also having nonspecific upper respiratory symptoms such as sneezing, loss of taste, and congestion and ordered for COVID test. Plan This note was constructed using voice recognition software. While every effort has been made to ensure accuracy and furnace installer, still areas may have been included sometimes these areas may affect the content or meeting of the given symptoms. Total time spent caring for the patient today was 30 minutes. This includes time spent before the visit reviewing the chart, time spent during the visit, and time spent after the visit and documentation. Orders: Orders COVID-19 ID NOW ([facility]) Today H93.8X3 - Other specified disorders of ear, bilateral Medications: New fluticasone propionate 50 mcg/actuation (Flonase Allergy Relief) administer into each nostril 1 spray intranasal DAILY 16 grams 0RF Coding Level of Care Code Est Pt Level 3 (13735) Diagnoses Serous otitis media H65.90
== END 2024-03-20 16:39 | disposition home or self-care (01) ==
PROVIDERS: PCP Physician Assistant
DX: H65.90 Unspecified nonsuppurative otitis media, unspecified ear (principal)

== ENCOUNTER → 2024-03-20 16:18 | Outpatient (BNVA) | payer OTHER, SELFPAY | LOC: CF 16:45 | PROVIDERS: PCP Physician Assistant | DX: H65.92 Unspecified nonsuppurative otitis media, left ear (principal); H93.8X3 Other specified disorders of ear, bilateral | CPT/HCPCS: 99212 ==

== ENCOUNTER 2024-06-29 13:25 | Outpatient (AMB) | payer OTHER, SELFPAY ==
--- NOTE | 2024-06-29 13:39 | A.OFFPC_ITS ---
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 Accompanied by: Self / Same As Patient Allergies No Known Allergies [No Known Allergies*] Allergy (Verified 06/29/24 14:06) Medication List - Last Reconciled 06/29/24 by Ken Garcia PA-C blood pressure test kit-large As directed clotrimazole 1% 1 appl topical BID 30 days fluticasone propionate 50 mcg/actuation (Flonase Allergy Relief) 1 spray intranasal DAILY PRN 30 days food supplemt, lactose-reduced (Ensure Plus High Protein) 1 ea PO TID 30 days food supplemt, lactose-reduced (Boost Plus) 1 ea PO DAILY 24 days furosemide 20 mg PO TID 30 days gabapentin 100 mg PO BID 90 days hydroxyzine HCl 25 mg PO BEDTIME PRN lactulose 60 mL PO TID PRN 30 days lisinopril 5 mg PO DAILY 90 days omeprazole 40 mg PO DAILY ondansetron 8 mg PO Q12H 30 days sertraline 50 mg PO DAILY 30 days sildenafil 100 mg PO DAILY 7 days sodium bicarbonate 650 mg PO BID spironolactone 50 mg PO Q8H 30 days trazodone 50 mg PO BEDTIME 90 days Tobacco use date assessed: 08/31/23 Dental Screening Dental Screen Date: 12/14/23 HPI discuss allergy testing HPI Details The patient is a 53-year-old male presenting with concerns about allergies, particularly interested in undergoing allergy testing due to a history of allergic rhinitis and a long interval since the last testing 27 years ago. He experiences persistent nasal congestion and suspects other possible allergies, especially after recent suspected allergic reactions to food ingredients, notably nutmeg. Additionally, the patient reports chronic fatigue, experiencing marked tiredness a few hours after waking and consuming minimal breakfast. Despite prior energy levels allowing for extended physical activity, his endurance has significantly decreased. The patient also seeks management for erectile dysfunction, which has persisted despite previous prescriptions such as Sildenafil. He reports an inability to engage in sexual activity with his partner for over a year. There is a noted history of low testosterone, alongside concerns about his liver condition affecting his health outcomes. The patient mentions long-standing cirrhosis, a significant weight loss period during his illness. He was recently removed from the liver transplant list due to improved hepatic function but continues to struggle with fatigue and dietary concerns post-recovery. The patient's past alcohol use disorder is resolved, and he maintains abstinence, not desiring circumstances conducive to relapse. [facility] Medical History Alcoholic hepatitis Tobacco use disorder Alcohol abuse Alcoholic gastritis Elevated liver function tests Hypercalcemia Dark brown-colored urine Jaundice Vomiting Excessive drinking alcohol Reactive depression GERD (gastroesophageal reflux disease) Hypertension Surgical History History of wisdom tooth extraction History of esophagogastroduodenoscopy (EGD) History of colonoscopy Hx of hernia repair Social History Household Members: None Housing: Apartment Are you a primary medicare sales representative to a significant other at home: No Do you presently have visiting nurse or other home services: No Patient Tobacco Use Status: Current everyday Tobacco user Tobacco use type: Cigarette Cigarette Packs Per Day: 0.25 Cigarettes Per Day: 3 Years Smoked: 38 e-Cigarette/Vaping Use: Never Used Second Hand Smoke Exposure: No service: No Current occupational status: employed Cognitive needs: No Hearing needs: No Vision needs: Yes Questionnaire Thrive Questionnaire Date Thrive assessed: 08/31/23 MADYSON-7 AMB Questionnaire MADYSON-7 Date MADYSON - 7 assessed: 08/31/23 Source: Developed by Drs. Eladio Ma, Solange Cabrales, Florin Sawant and colleagues, with an educational jose alberto from [employer]. Review of Systems Const Reports fatigue, Denies headache(s), Reports lethargy and Reports malaise Eyes Denies loss of vision ENT Denies vertigo, Denies dizziness, Denies headache(s) and Denies sore throat Card Denies chest pain, Denies leg edema and Denies lightheadedness Resp Denies cough, Denies hemoptysis and Denies wheezing GI Denies abdominal pain, Denies melena, Denies constipation, Denies diarrhea and Denies vomiting Denies dysuria, Denies urinary frequency and Denies urinary urgency Musc Denies arthralgias, Denies joint swelling, Denies numbness and Denies tingling Neuro Denies Abnormal speech present, Denies behavioral changes, Denies vertigo, Denies dizziness, Denies headache(s), Denies loss of vision, Denies memory loss, Denies numbness and Denies tingling Psych Denies anxiety, Denies behavioral changes, Denies depression, Denies memory loss and Denies panic attacks Endo Reports fatigue Dustin/Lymph Denies easy bleeding and Denies easy bruising Aller/Immun Denies wheezing Physical exam (Primary Care) Vital Signs: Last Vital Signs Pulse 102 H 06/29/24 13:56 BP 122/90 H 06/29/24 13:56 Pulse Ox 97 06/29/24 13:56 Oxygen Delivery Method Room Air 06/29/24 13:56 BMI result Body Mass Index 30.1 Tobacco/Smoking Status: Tobacco use Status Tobacco use date assessed 08/31/23 06/29/24 13:39 Patient Tobacco Use Status Current everyday Tobacco 06/29/24 13:39 Tobacco use type Cigarette 06/29/24 13:39 e-Cigarette/Vaping Use Never Used 06/29/24 13:39 Are you ready to quit: Yes Tobacco cessation counseling provided: Yes Items discussed: Nicotine replacement Relapse Prevention: discussed the importance of a supportive environment, discussed negative mood or depression after quitting, weight gain after smoking is common and discussed dietary, exercise and/or lifestyle changes Number of minutes spent counselin CPT code: 03487 - 4-10 Minutes Thrive Assessment: Date of Thrive Assessment Date Thrive assessed 08/31/23 06/29/24 13:39 Const General: healthy appearing, no acute distress, alert and awake Nutritional Appearance: well nourished Orientation/consciousness: oriented to person, oriented to place and oriented to time HENMT Ears: TM's normal bilaterally General nose exam: Normal nasal mucous membranes and turbinates present Eyes Conjunctivae: conjunctivae normal Sclerae: sclerae normal Pupils: Equal, round and reactive pupils present Neck Neck: Yes no lymphadenopathy and Yes no JVD Thyroid: Thyroid normal Carotids: no bruits Resp Effort & Inspection: normal respiratory effort and not tachypneic Auscultation: no crackles, no rales, no rhonchi and no wheezes Cardio Rate: regular rate Rhythm: regular rhythm Heart sounds: no murmurs and normal S1 and S2 GI Palpation (GI): Soft to palpation, nontender, no hepatomegaly and no splenomegaly Auscultation: normal bowel sounds Skin General skin exam: no rashes or lesions noted and dry skin Neuro General: oriented to person, oriented to place and oriented to time Cranial nerves: Yes Equal, round and reactive pupils present Speech: No Abnormal speech present Gait exam (Neuro): Normal gait present Motor exam (neuro): no tremor noted Extrem Right upper extremity: full ROM Left upper extremity: full ROM Right lower extremity: full ROM; no edema Left lower extremity: full ROM; no edema Psych Mental Status: mental status grossly normal Speech and movement: Normal speech and movement present Affect: normal affect Attitude: cooperative Thought process: Normal thought process present Coding Level of Care Code Est Pt Level 4 (49995) Diagnoses Allergy, initial encounter T78.40XA Encounter type: initial encounter Low libido R68.82 MDD (major depressive disorder), recurrent episode, moderate F33.1 ABIOLA (obstructive sleep apnea) G47.33 Chronic fatigue R53.82 Additional Codes Vital Signs *Quality* - CPT code: 15067 - 4-10 Minutes ([id number]) Assessment & Plan Assessment & Plan (1) Allergies: Code(s): T78.40XA - Allergy, unspecified, initial encounter Category: Medical Qualifiers: Encounter type: initial encounter Qualified Code(s): T78.40XA - Allergy, unspecified, initial encounter Plan: I discussed with the patient the plan to undergo comprehensive allergy testing given his history and recent reactions. We agreed that testing both via blood panel and potential referral for skin testing (prick testing) would provide a broad assessment. There was a mutual understanding regarding the possible outcomes and timelines for specialist referrals. (2) Low libido: Code(s): R68.82 - Decreased libido Category: Medical Plan: For erectile dysfunction, we reviewed the limitation in medication accessibility due to insurance, acknowledged the impact of low testosterone, and decided on reevaluating hormonal levels. The patient understands the challenges and diagnostic steps involved in identifying treatment opportunities. (3) MDD (major depressive disorder), recurrent episode, moderate: Code(s): F33.1 - Major depressive disorder, recurrent, moderate Category: Medical Plan: Patient restarted sertraline 50 mg due to his worsening depression. He feels most of his depressions due to not working and being on disability. He does not have symptoms purpose and would like to return back to work. (4) ABIOLA (obstructive sleep apnea): Code(s): G47.33 - Obstructive sleep apnea (adult) (pediatric) Category: Medical Plan: Regarding fatigue and poorly restorative sleep, I recommended a home sleep study to evaluate for potential sleep apnea, with the rationale stemming from reported snoring and potential sleep disturbances. This study will assess sleep patterns, respiratory parameters, and possible periodic limb movements. (5) Chronic fatigue: Code(s): R53.82 - Chronic fatigue, unspecified Category: Medical Plan: Unclear etiology to patient's chronic fatigue which could be multifactorial due to his depression, liver cirrhosis etcetera. Will send for obstructive sleep apnea testing as he does admit to snoring and having some daytime somnolence. Orders: Orders Testosterone, Free/Total Today R68.82 - Decreased libido RT home sleep study Today G47.33 - Obstructive sleep apnea (adult) (pediatric) Vitamin D 25-OH Total Today R53.82 - Chronic fatigue, unspecified Vitamin B12 and Folate Today E53.8 - Deficiency of other specified B group vitamins, R53.82 - Chronic fatigue, unspecified TSH reflex Free T4 Today R79.89 - Other specified abnormal findings of blood chemistry Complete Blood Count no Diff Today R53.82 - Chronic fatigue, unspecified Ammonia Today K70.31 - Alcoholic cirrhosis of liver with ascites Referrals Allergy & Immunology Referral T78.40XA - Allergy, unspecified, initial encounter Medications: Refilled trazodone 50 mg PO BEDTIME 90 tabs 1RF 90 days F33.1 - Major depressive disorder, recurrent, moderate
[2024-06-29 13:56] VITALS: BP 122/90; PULSE 102; O2SAT 97; BMI 30.1
== END 2024-06-29 14:32 | disposition home or self-care (01) ==
PROVIDERS: PCP Physician Assistant; Visit Provider Physician Assistant
DX: F33.1 Major depressive disorder, recurrent, moderate (principal); T78.40XA Allergy, unspecified, initial encounter; R68.82 Decreased libido; R53.82 Chronic fatigue, unspecified; G47.33 Obstructive sleep apnea (adult) (pediatric); Z87.891 Personal history of nicotine dependence

== ENCOUNTER → 2024-06-29 13:25 | Outpatient (BNVA) | payer OTHER, SELFPAY | PROVIDERS: PCP Physician Assistant; Visit Provider Physician Assistant | DX: J30.9 Allergic rhinitis, unspecified (principal); T78.40XA Allergy, unspecified, initial encounter; N52.9 Male erectile dysfunction, unspecified; F17.210 Nicotine dependence, cigarettes, uncomplicated; R68.82 Decreased libido; F33.1 Major depressive disorder, recurrent, moderate; G47.33 Obstructive sleep apnea (adult) (pediatric); E53.8 Deficiency of other specified B group vitamins; R79.89 Other specified abnormal findings of blood chemistry; K70.31 Alcoholic cirrhosis of liver with ascites; X58.XXXA Exposure to other specified factors, initial encounter; Y93.9 Activity, unspecified; Y92.9 Unspecified place or not applicable; Y99.9 Unspecified external cause status | CPT/HCPCS: 99212 ==

== ENCOUNTER → 2024-10-03 09:54 | Outpatient (REF) | payer OTHER, SELFPAY ==
--- OUTSIDE RECORDS SUMMARY | 2024-10-03 11:35 | XMS_ITS | Encounter Summary ---
Author Organization [facility], Address [address] [place] [address] Phone Care Team Providers Care Steward/Stewardess Second Class Name Role Phone Ken Garcia Primary Care Provider Encounter Details Date Type Department Care Team (Late st Contact Info) Description 03/11/2023 Documentation Only [facility], - Federico [facility] [address] [place] [phone] Gevoanni Tapia MD [address] [facility] [place] [phone] Social History Tobacco Use Types Packs/Day Years Used Date Smoking Tobacco: Never Assessed Sex and Gender Information Value Date Recorded Sex Assigned at Not on file Legal Sex Male 9:25 AM EDT Gender Identity Not on file Sexual Orientation Not on file documented as of this encounter Plan of Treatment Not on file documented as of this encounter Visit Diagnoses Not on filedocumented in this encounter Care Teams Steward/Stewardess Second Class Relationship Specialty Start Date End Date Ken Garcia PA [address] [place] [address], [facility] [address] [place] [address] PCP - General Physician Office Specialist 03/02/23 documented as of this encounter
--- OUTSIDE RECORDS SUMMARY | 2024-10-03 11:35 | XMS_ITS | Clinical Summary ---
Author Organization [facility], Address [address] [place] [address] [place] [phone] Phone Care Team Providers Care Mask Inspector Name Role Phone Ken Garcia Primary Care Provider [phone] Allergies No known active allergies Medications Calcium 600/Vitamin D3 600-20 MG-MCG tablet TAKE 1 TABLET BY MOUTH WITH A MEAL ONCE A DAY X 30 DAYS 4 Active DULCOLAX 5 MG EC tablet TAKE 4 TABLETS BY MOUTH DAILY DIRECTED FOR 1 DAY 4 Active furosemide (LASIX) 80 MG tablet Take 80 mg by mouth 1 (one) time each day For 30 days 4 Active gabapentin (NEURONTIN) 100 MG capsule TAKE 1 CAP ORALLY 2 TIMES A DAY FOR 90 DAYS 4 Active hydrOXYzine (ATARAX) 25 MG tablet Take 25 mg by mouth at night if needed 4 Active Nutritional Supplements (Ensure Plus High Protein) liquid TAKE 1 EA BY MOUTH 3 TIMES A DAY FOR 30 DAYS 4 Active omeprazole (PriLOSEC) [address] capsule Take 40 mg by mouth 1 (one) time each day Active ondansetron ODT (ZOFRAN-ODT) 8 MG dispersible tablet DISSOLVE 1 TABLET BY MOUTH EVERY 12 HOURS 4 Active GaviLyte-G 236 g solution USE DIRECTED FOR 1 DAY 4 Active sodium bicarbonate 650 MG tablet TAKE 1 TABLET (650 MG TOTAL) BY MOUTH 2 (TWO) TIMES A DAY FOR 14 DAYS. 4 Active spironolactone (ALDACTONE) 100 MG tablet TAKE 1 TABLET ORALLY TWICE MONTES 30 DAY(S) 4 Active traZODone (DESYREL) 50 MG tablet Take 25 mg by mouth 1 (one) time each day 4 Active Active Problems Problem Noted Date Diagnosed Date Alcoholic cirrhosis 12/10/2023 Hyponatremia 02/16/2023 Overview (12/10/2023): Last Assessment & Plan: Hyponatremia with an initial sodium level of 123. This may be related to his liver disease or EtOH (i.e. beer drinker potomania). Sodium level improved to 126 overnight Urine sodium less than 20, urine osmolality 393. Sodium level dropped to 124 overnight. He was started on a fluid restriction, had been drinking a lot of major juice Multiple possible contributing factors. Urine studies showed a urine sodium less than 20 suggesting prerenal component. He was given a fluid bolus on 02/18 with improvement in his sodium level to 130, then dropped to 124 overnight. Pressure has been low --Nephrology follow-up appreciated. Holding IVF, started spironolactone 02/20 --Repeat BMP q8hr -- Continue low-salt diet and fluid restriction of 1 L Hypertension 10/13/2022 Overview (12/10/2023): Last Assessment & Plan: Poorly controlled likely due to alcohol. Also noncompliant with antihypertensive. -Restarted lisinopril 5 mg daily Immunizations Name Administration Dates Next Due Hep B, Adolescent or Pediatric 11/04/2017,2017 Hepatitis B 07/29/2022,11/30/2018 Influenza, MDCK, PF, Quadrivalent 04/16/2022 Influenza, Quadrivalent, Pre servative Free 04/08/2021,04/10/2020,04/19/2019,04/20,02/13/2017 Influenza, Unspecified 04/24/2016,04/19/2015 MMR 06/04/2016,03/27/2016 Pneumococcal Polysaccharide 07/05/2017, 7 Tdap 07/05/2017 Social History Tobacco Use Types Packs/Day Years Used Date Smoking Tobacco: Never Assessed Sex and Gender Information Value Date Recorded Sex Assigned at Not on file Legal Sex Male 9:25 AM EDT Gender Identity Not on file Sexual Orientation Not on file Plan of Treatment Health Maintenance Due Date Last Done Comments Hepatitis B Vaccine (1 of 3 - 19+ 3-dose series) 1988 07/29/2022, 11/30/2018, 11/04/2017, Additional history exists Pneumococcal Vaccine: Pediat rics (0 to 5 Years) and At-Risk Patients (6 to 64 Years) (3 of 3 - PCV) 07/05/2018 07/05/2017, 02/13/2017 Colorectal Cancer Screening: Annual FOBT 2018 Colorectal Cancer Screening: Colonoscopy 2018 Colorectal Cancer Screening: Sigmoidoscopy 2018 Influenza Vaccine (#1) 2024 3, 04/16/2022, 04/08/2021, Additional history exists Insurance Care Teams Mask Inspector Relationship Specialty Start Date End Date Ken Garcia PA [address] [place] [address], [address] [place], [place] [id number] PCP - General Physician Newsroom Intern 03/02/23
--- OUTSIDE RECORDS SUMMARY | 2024-10-03 11:35 | XMS_ITS | Encounter Summary ---
Author Organization [facility] Address [address] [place] [address] Phone Care Team Providers Care Inner Tube Cutter Name Role Phone Ken Garcia Primary Care Provider [phone] Encounter Details Date Type Department Care Team (Late st Contact Info) Description 12/06/2023 Documentation Only [facility] [place], [address] [place] [address] Isabelle [place], [place] [address] [place] [address] Social History Tobacco Use Types Packs/Day Years [...] on filedocumented in this encounter Care Teams Inner Tube Cutter Relationship Specialty Start Date End Date Ken Garcia PA [address] [place] [address], [address] [place] [address] PCP - General Physician Software Design Analyst 03/02/23 documented as of this encounter
--- OUTSIDE RECORDS SUMMARY | 2024-10-03 11:35 | XMS_ITS | Encounter Summary ---
Author Organization [facility] [place], Address [address] [place] [address] Phone Care Team Providers Care Safety Deposit Supervisor Name Role Phone Ken Garcia Primary Care Provider [phone] Encounter Details Date Type Department Care Team (Late st Contact Info) Description 03/10/2023 Documentation Only [facility] [place], - Federico [facility] [address] [place] [phone] Geovanni Tapia MD [address] [facility] [place] [phone] Social History Tobacco Use Types Packs/Day Years [...] on filedocumented in this encounter Care Teams Safety Deposit Supervisor Relationship Specialty Start Date End Date Ken Garcia PA [address] [place] [address], [facility] [address] [place] [address] PCP - General Physician Bark Scaler 03/02/23 documented as of this encounter
--- OUTSIDE RECORDS SUMMARY | 2024-10-03 11:35 | XMS_ITS | Encounter Summary ---
Author Organization [facility] [place], Address [address] [place] [address] Phone Care Team Providers Care Kier Pleater Name Role Phone Ken Garcia Primary Care Provider [phone] Encounter Details Date Type Department Care Team (Late st Contact Info) Description 04/10/2024 Documentation Only [facility] [place], - Federico [address] [place] [phone] Nettie Christianson [address] [place] [address] Social History Tobacco Use Types Packs/Day [...] on filedocumented in this encounter Care Teams Kier Pleater Relationship Specialty Start Date End Date Ken Garcia PA [address] [place] [address], [address] [place], [place] [id number] PCP - General Physician Calculus Teacher 03/02/23 documented as of this encounter
--- OUTSIDE RECORDS SUMMARY | 2024-10-03 11:35 | XMS_ITS | Encounter Summary ---
Author Organization [facility] [place], Address [address] [place] [address] Phone Care Team Providers Care Manager Of Loss Prevention Operations Name Role Phone Ken Garcia Primary Care Provider [phone] Encounter Details Date Type Department Care Team (Late st Contact Info) Description 03/10/2023 Documentation Only [facility] [place], - Federico [email or web address] [address] [place] [phone] Geovanni Tapia MD [address] [place] [address] Social History Tobacco Use Types Packs/Day Years [...] on filedocumented in this encounter Care Teams Manager Of Loss Prevention Operations Relationship Specialty Start Date End Date Ken Garcia PA [address] [place] [address], [facility] [address] [place] [address] PCP - General Physician Auto Mechanic 03/02/23 documented as of this encounter
--- OUTSIDE RECORDS SUMMARY | 2024-10-03 11:35 | XMS_ITS | Encounter Summary ---
Author Organization [facility] [place], Address [address] [place] [address] Phone Care Team Providers Care Regional Safety Manager Name Role Phone Ken Garcia Primary Care Provider Encounter Details Date Type Department Care Team (Late st Contact Info) Description 03/10/2023 Documentation Only [facility] [place], - Federico [facility] [address] [place] [phone] Geovanni Tapia MD 134 [facility] [place] [address] Social History Tobacco Use Types Packs/Day Years [...] on filedocumented in this encounter Care Teams Regional Safety Manager Relationship Specialty Start Date End Date Ken Garcia PA [address] [place] [address], [facility] [address] [place] [address] PCP - General Physician Chainstitch Sewing Machine Operator 03/02/23 documented as of this encounter
--- OUTSIDE RECORDS SUMMARY | 2024-10-03 11:35 | XMS_ITS | Encounter Summary ---
Author Organization [facility] [place], Address [address] [place] [address] Phone Care Team Providers Care Dietary Manager Name Role Phone Ken Garcia Primary Care Provider [phone] Encounter Details Date Type Department Care Team (Late st Contact Info) Description 03/10/2023 Documentation Only [facility] [place], - Federico [facility] [address] [place] [address] Geovanni Tapia MD 134 [facility] [place] [address] Social History Tobacco Use Types Packs/Day Years [...] on filedocumented in this encounter Care Teams Dietary Manager Relationship Specialty Start Date End Date Ken Garcia PA [address] [place] [address], [facility] [address] [place] [address] PCP - General Physician Certified Social Workers In Health Care 03/02/23 documented as of this encounter
--- OUTSIDE RECORDS SUMMARY | 2024-10-03 11:35 | XMS_ITS | Encounter Summary ---
Author Organization [facility] Address [address] [place] [address] Phone Care Team Providers Care Car Rental Service Attendant Name Role Phone Ken Garcia Primary Care Provider [phone] Encounter Details Date Type Department Care Team (Late st Contact Info) Description 03/10/2023 Documentation Only [facility] [place], [address] [place] [address] Geovanni Tapia MD [address] [place] [address] Social History Tobacco Use Types Packs/Day Years [...] on filedocumented in this encounter Care Teams Car Rental Service Attendant Relationship Specialty Start Date End Date Ken Garcia PA [address] [place] [address], [facility] [address] [place], [place] [phone] PCP - General Physician High School Auto Repair Teacher 03/02/23 documented as of this encounter
--- OUTSIDE RECORDS SUMMARY | 2024-10-03 11:35 | XMS_ITS | Encounter Summary ---
Author Organization [facility] [place], Address [address] [place] [address] Phone Care Team Providers Care Ballistic Expert Name Role Phone Ken Garcia Primary Care Provider [phone] Encounter Details Date Type Department Care Team (Late st Contact Info) Description 03/11/2023 Documentation Only [facility] [place], - Federico [facility] [address] [place] [phone] Geovanni Tapia MD 134 [facility] [place] [phone] Social History Tobacco Use Types Packs/Day Years [...] on filedocumented in this encounter Care Teams Ballistic Expert Relationship Specialty Start Date End Date Ken Garcia PA [address] [place] [address], [facility] [address] [place] [address] PCP - General Physician Corrugator Supervisor 03/02/23 documented as of this encounter
== END ==
LOC: HO.SL 09:54
PROVIDERS: PCP Physician Assistant; Visit Provider Physician Assistant
DX: G47.33 Obstructive sleep apnea (adult) (pediatric) (principal)
CPT/HCPCS: 95806

== ENCOUNTER → 2024-10-03 10:26 | Outpatient (BNV) | payer OTHER, SELFPAY | PROVIDERS: PCP Physician Assistant; Visit Provider Internal Medicine | DX: R06.83 Snoring (principal); G47.10 Hypersomnia, unspecified | CPT/HCPCS: 95806 ==

== ENCOUNTER 2024-10-11 12:36 | Outpatient (AMB) | payer OTHER, SELFPAY ==
--- NOTE | 2024-10-11 12:44 | MHC.PC.OV ---
Vital Signs 10/11/24 12:45 Height 6 ft Weight 229 lb BMI 31.1 BP 130/80 Blood Pressure Location Lt brachial Position Sitting Pulse 111 H Pulse Source Pulse Oximeter Temp 97.3 F Temp Source Temporal Artery Scan Pulse Oximetry (%) 98 Oxygen Delivery Method Room Air Intake Visit Reasons: ears are blocking Intake Note: Patient is here to follow up on blockage of right ear. Marketing Automation Specialist Required: No Binding Nicker: Not Required per policy Accompanied by: Self / Same As Patient Allergies No Known Allergies [No Known Allergies*] Allergy (Verified 10/11/24 12:45) Tobacco use date assessed: 10/11/24 Dental Screening Dental Screen Date: 10/11/24 Did you have a dental visit in the last 12 months?: Yes Did you have a dental problem in the last 6 months where you did not have access to dental care?: No Was dental information given to patient?: Patient has dentist HPI ears are blocking HPI Details for months R ear blocked tried flonase , and other meds that did not help. [facility] Medical History Alcoholic hepatitis Tobacco use disorder Alcohol abuse Alcoholic gastritis Elevated liver function tests Hypercalcemia Dark brown-colored urine Jaundice Vomiting Excessive drinking alcohol Reactive depression GERD (gastroesophageal reflux disease) Hypertension Surgical History History of wisdom tooth extraction History of esophagogastroduodenoscopy (EGD) History of colonoscopy Hx of hernia repair Social History Household Members: None Housing: Apartment Are you a primary intensive care medicine specialist to a significant other at home: No Do you presently have visiting nurse or other home services: No Patient Tobacco Use Status: Current everyday Tobacco user Tobacco use type: Cigarette Cigarette Packs Per Day: 0.25 Cigarettes Per Day: 3 Years Smoked: 38 Packs Per Year: 10 Packs per year/per ci.70 e-Cigarette/Vaping Use: Never Used Second Hand Smoke Exposure: Yes service: No Current occupational status: employed Cognitive needs: No Hearing needs: No Vision needs: Yes Questionnaire PHQ-9 Over the last 2 weeks, how often have you been bothered by any of the following problems? 1. Little interest or pleasure in doing things: not at all 2. Feeling down, depressed, or hopeless: not at all 3. Trouble falling or staying asleep, or sleeping too much: not at all 4. Feeling tired or having little energy: not at all 5. Poor appetite or overeating: not at all 6. Feeling bad about yourself - or that you are a failure or have let yourself or your family down: not at all 7. Trouble concentrating on things, such as reading the newspaper or watching television: not at all 8. Moving or speaking so slowly that other people could have noticed. Or the opposite - being so fidgety or restless that you have been moving around a lot more than usual: not at all 9. Thoughts that you would be better off or of hurting yourself in some way: not at all Total score: 0 Depression Screening Interpretation: Negative Depression Screening Done: Yes Source: Developed by Drs. Eladio Ma, Solange Cabrales, Florin Sawant and colleagues, with an educational jose alberto from [employer]. Thrive Questionnaire Date Thrive assessed: 10/11/24 I am a: Patient What is your living situation today?: I have a steady place to live Within the past 12 months, did the food you bought not last and you didn't have the money to get more?: Never true Within the past 12 months, did you worry whether your food would run out before you got money to buy more?: Never true Do you have trouble paying for medicines?: No Do you have trouble getting transportation to medical appointments?: No Do you have trouble paying your heating and electricity bill?: No Do you have trouble taking care of your child, family member or friend?: No Do you have trouble with day-to-day activities such as bathing, preparing meals, shopping, managing finances, etc.?: No Are you currently unemployed and looking for a job?: No Are you interested in more education?: No Please select the resources that you would like help with: None Currently or been in a relationship where the following occur: No concerns reported THRIVE Score: 0 AUDIT C Alcohol Use Questionnaire (AUDIT-C) 1. How often do you have a drink containing alcohol?: Never Total Score: 0 MADYSON-7 AMB Questionnaire MADYSON-7 Date MADYSON - 7 assessed: 10/11/24 Feeling nervous, anxious, or on edge: 0 = Not at all Not being able to stop or control worryin = Not at all Worrying too much about different things: 0 = Not at all Trouble relaxin = Not at all Being so restless that it is hard to sit still: 0 = Not at all Becoming easily annoyed or irritable: 0 = Not at all Feeling afraid as if something awful might happen: 0 = Not at all Total MADYSON-7 score (0-4 normal; 5-9 mild; 10-14 moderate; 15-21 severe): 0 Source: Developed by Drs. Ealdio Ma, Solange Cabrales, Florin Sawant and colleagues, with an educational jose alberto from [employer]. Physical exam (Primary Care) Vital Signs: Last Vital Signs Temp 97.3 F 10/11/24 12:45 Pulse 111 H 10/11/24 12:45 BP 130/80 10/11/24 12:45 Pulse Ox 98 10/11/24 12:45 Oxygen Delivery Method Room Air 10/11/24 12:45 BMI result Body Mass Index 31.1 Tobacco/Smoking Status: Tobacco use Status Tobacco use date assessed 10/11/24 10/11/24 12:52 Patient Tobacco Use Status Current everyday Tobacco 10/11/24 12:52 Tobacco use type Cigarette 10/11/24 12:52 e-Cigarette/Vaping Use Never Used 10/11/24 12:52 PHQ-9: PHQ-9 Score PHQ-9: Total score 0 10/11/24 13:17 Depression Screening Interpretation: Negative Thrive Assessment: Date of Thrive Assessment Date Thrive assessed 10/11/24 10/11/24 12:52 Currently or been in a relationship where the following occur: No concerns reported Coding Level of Care Code Est Pt Level 4 (53371) Diagnoses Cirrhosis K74.60 ABIOLA (obstructive sleep apnea) G47.33 Hearing loss in right ear H91.91 Nasal congestion R09.81 Assessment & Plan Assessment & Plan (1) Cirrhosis: Code(s): K74.60 - Unspecified cirrhosis of liver Category: Medical Plan: Continue to follow-up with Gastroenterology. congratulations on stopping alcohol (2) ABIOLA (obstructive sleep apnea): Code(s): G47.33 - Obstructive sleep apnea (adult) (pediatric) Category: Medical (3) Hearing loss in right ear: Code(s): H91.91 - Unspecified hearing loss, right ear Category: Medical Plan: Referral to ear nose and throat (4) Nasal congestion: Code(s): R09.81 - Nasal congestion Category: Medical Plan: Use the Flonase nasal spray Plan History of Present Illness The patient is a 54-year-old male presenting with acute otitis media and associated hearing impairment along with sinus congestion. He has been experiencing significant blockage in the right ear for several months, which led to him being partially deaf. Various treatments, including steroids and Flonase, have been attempted without relief. There is also the presence of persistent sinus congestion. The ear blockage worsens with attempts to clear the eustachian tube by auto-inflation. His historical health issues encompass liver disease, notably alcoholic hepatitis and cirrhosis, underlining potential overall health complexities. Health Maintenance - Scheduled sleep study for obstructive sleep apnea (pending completion). - Due for endoscopy (EGD) for varices surveillance in May 2024. - Patient reports being sober since February 2023, overcoming previous cirrhosis. Social History - Previous smoker, currently smokes infrequently. - Former alcohol user, sober for 20 months at the time of review. - Lives with a long-term partner. - Owns a cat, potentially contributing to sinus allergies. - Engaged in numerous home projects suggesting a moderate activity level. - Conscious of maintaining a healthy diet, especially after liver issues. Review of Systems - Ears: Reports hearing loss and blockage. - Nose/Sinuses: Reports constant congestion. - Neurological: Denies dizziness. - Respiratory: Reports occasional shortness of breath, denies chest pain. - Gastrointestinal: Denies diarrhea, no issues with urination. - Dermatological: Denies issues apart from historical psoriasis. Physical Exam - Ear, Nose, and Throat- Right ear appears mildly red; no cerumen; notable unchanged blockage, not increased by nose blowing. - Sinuses- Non-painful upon palpation and manipulation. - No apparent wax accumulation in ears. Results - Gastroenterology note indicates a prior scope in June 2024 showed no intestinal dysplasia. Plan I will arrange for an urgent referral to an ENT specialist to assess the patient's ongoing ear blockage and hearing difficulties. The use of nasal steroid spray Flonase) should be continued with correct technique to effectively address sinus congestion. Caution should be taken to avoid medication interactions, and I will follow up regarding the urgency of the ENT consultation to facilitate quicker intervention. Ongoing management of chronic health conditions continues, with particular attention to updating and rescheduling pending tests and surveillance procedures. Patient was informed and verbally consented to the use of an ambient scribe for clinic note documentation during this visit. Discussion Notes I discussed the need for an urgent ENT referral to address persistent ear blockage and hearing loss, considering the inefficacy of initial treatments. The risks and benefits of continued Flonase use were explained, particularly its role in alleviating sinus congestion. The importance of appropriate application techniques was emphasized. I reminded the patient of the potential interaction between Cipro and Hydroxyzine, advising against their concurrent use without proper spacing. Strategies for relieving pressure in the ear were covered, with additional emphasis on the potential impact of allergenic exposures from his pet cat. Finally, the need for ongoing monitoring of chronic conditions such as sleep apnea and hypertension was reinforced, verifying the patient's understanding and consent regarding this plan. Patient Instructions - Use Flonase daily, ensuring proper spray technique. - Continue to monitor ear symptoms; contact our office if symptoms worsen. - Follow up with the ENT appointment as soon as it is scheduled. - Do not use Cipro and Hydroxyzine simultaneously; maintain a two-hour gap. - Keep using sinus rinses to help alleviate nasal blockage. - Stay hydrated, maintain a healthy diet, and limit exposure to allergens. - If worsening symptoms or new symptoms develop, seek medical attention immediately. Orders: Referrals Ear/Nose/Throat Referral H91.91 - Unspecified hearing loss, right ear Medications: New ciprofloxacin HCl Gastroenterology for ascites 500 mg PO DAILY 30 tabs 0RF Discontinued furosemide Discontinued Reason: Doctor's Order 20 mg PO TID 30 days 90 tabs 1RF K70.31 - Alcoholic cirrhosis of liver with ascites sildenafil Discontinued Reason: Doctor's Order 100 mg PO DAILY 7 days 7 tabs 0RF N52.9 - Male erectile dysfunction, unspecified lactulose Discontinued Reason: Change Referral Type 60 mL PO TID 30 days PRN 2,880 mL 3RF laxative effect K70.31 - Alcoholic cirrhosis of liver with ascites ondansetron Discontinued Reason: Change Referral Type 8 mg PO Q12H 30 days 60 tabs 3RF R11.0 - Nausea baclofen Discontinued Reason: Doctor's Order 10 mg PO BEDTIME 14 days 14 tabs 0RF muscle relaxor S22.49XA - Multiple fractures of ribs, unspecified side, initial encounter for closed fracture
[2024-10-11 12:45] VITALS: BP 130/80; PULSE 111; TEMP 36.3; O2SAT 98; BMI 31.1
--- OUTSIDE RECORDS SUMMARY | 2024-10-11 14:34 | XMS_ITS | Encounter Summary ---
Author Organization [facility] Address [address] [place] [address] Phone Care Team Providers Care Marketing Manager Name Role Phone Ken Garcia Primary Care Provider [phone] Encounter Details Date Type Department Care Team (Late st Contact Info) Description 03/10/2023 Documentation Only [facility] [place], [address] [place] [address] Geovanni Tapia MD [address] [place] [place] [address] Social History Tobacco Use Types [...] on filedocumented in this encounter Care Teams Marketing Manager Relationship Specialty Start Date End Date Ken Garcia PA [address] [place] [address], [facility] [address] [place], [place] [phone] PCP - General Physician Entertainment Musician 03/02/23 documented as of this encounter
--- OUTSIDE RECORDS SUMMARY | 2024-10-11 14:34 | XMS_ITS | Encounter Summary ---
Author Organization [facility] [place], Address [address] [place] [address] Phone Care Team Providers Care Handkerchief Folder Name Role Phone Ken Garcia Primary Care Provider [phone] Encounter Details Date Type Department Care Team (Late st Contact Info) Description 03/10/2023 Documentation Only [facility] [place], - Federico [facility] [address] [place] [phone] Geovanni Tapia MD 134 [facility] [place] [address] Social History Tobacco Use Types Packs/Day Years [...] on filedocumented in this encounter Care Teams Handkerchief Folder Relationship Specialty Start Date End Date Ken Garcia PA [address] [place] [address], [facility] [address] [place] [address] PCP - General Physician Can Coverer 03/02/23 documented as of this encounter
--- OUTSIDE RECORDS SUMMARY | 2024-10-11 14:34 | XMS_ITS | Encounter Summary ---
Author Organization [facility] [place], Address [address] [place] [address] Phone Care Team Providers Care Echo Vascular Tech Name Role Phone Ken Garcia Primary Care Provider [phone] Encounter Details Date Type Department Care Team (Late st Contact Info) Description 03/10/2023 Documentation Only [facility] [place], - Federico [facility] [address] [place] [address] Geovanni Tapia MD [address] [place] [address] Social History Tobacco Use Types Packs/Day Years [...] on filedocumented in this encounter Care Teams Echo Vascular Tech Relationship Specialty Start Date End Date Ken Garcia PA [address] [place] [address], [facility] [address] [place] [address] PCP - General Physician Smt Technician 03/02/23 documented as of this encounter
--- OUTSIDE RECORDS SUMMARY | 2024-10-11 14:34 | XMS_ITS | Encounter Summary ---
Author Organization [facility] [place], Address [address] [place] [address] Phone Care Team Providers Care Park Worker Name Role Phone Ken Garcia Primary Care Provider [phone] Encounter Details Date Type Department Care Team (Late st Contact Info) Description 03/11/2023 Documentation Only [facility] [place], - Federico [facility] [address] [place] [phone] Geovanni Tapia MD 134 [facility] [place] [address] Social History Tobacco Use Types Packs/Day Years [...] on filedocumented in this encounter Care Teams Park Worker Relationship Specialty Start Date End Date Ken Garcia PA [address] [place] [address], [facility] [address] [place] [address] PCP - General Physician Printing Machine Mechanic 03/02/23 documented as of this encounter
--- OUTSIDE RECORDS SUMMARY | 2024-10-11 14:34 | XMS_ITS | Encounter Summary ---
Author Organization [facility] Address [address] [place] [address] Phone Care Team Providers Care Panel Gluer Name Role Phone Ken Garcia Primary Care Provider [phone] Encounter Details Date Type Department Care Team (Late st Contact Info) Description 12/06/2023 Documentation Only [facility], [address] [place] [address] [place], [place] [address] [place] [address] Social History Tobacco Use Types [...] on filedocumented in this encounter Care Teams Panel Gluer Relationship Specialty Start Date End Date Ken Garcia PA [address] [place] [address], [address] [place], [place] [phone] PCP - General Physician Clam Digger 03/02/23 documented as of this encounter
--- OUTSIDE RECORDS SUMMARY | 2024-10-11 14:34 | XMS_ITS | Encounter Summary ---
Author Organization [facility], Address [address] [place] [address] Phone Care Team Providers Care Software Engineering Associate Manager Name Role Phone Ken Garcia Primary Care Provider [phone] Encounter Details Date Type Department Care Team (Late st Contact Info) Description 04/10/2024 Documentation Only [facility], - [address] [place] [phone] Nettie Christianson [address] [place] [phone] Social History Tobacco Use Types Packs/Day [...] on filedocumented in this encounter Care Teams Software Engineering Associate Manager Relationship Specialty Start Date End Date Ken Garcia PA [address] [place] [address], [address] [place], [place] [phone] PCP - General Physician Pilot Boat Operator 03/02/23 documented as of this encounter
--- OUTSIDE RECORDS SUMMARY | 2024-10-11 14:34 | XMS_ITS | Encounter Summary ---
Author Organization [facility], Address [address] [place] [address] Phone Care Team Providers Care Lumite Injector Name Role Phone Ken Garcia Primary Care Provider [phone] Encounter Details Date Type Department Care Team (Late st Contact Info) Description 03/10/2023 Documentation Only [facility], - Federico [facility] [facility] [address] [place] [phone] Geovanni Tapia MD [address] [facility] [place] [phone] Social History Tobacco Use Types Packs/Day Years [...] on filedocumented in this encounter Care Teams Lumite Injector Relationship Specialty Start Date End Date Ken Garcia PA [address] [place] [address], [facility] [address] [place] [address] PCP - General Physician Journeyman Molder 03/02/23 documented as of this encounter
--- OUTSIDE RECORDS SUMMARY | 2024-10-11 14:34 | XMS_ITS | Encounter Summary ---
Author Organization [facility], Address [address] [place] [address] Phone Care Team Providers Care Oem Sales Manager Name Role Phone Ken Garcia Primary Care Provider [phone] Encounter Details Date Type Department Care Team (Late st Contact Info) Description 03/11/2023 Documentation Only [facility], - Federico [facility] [address] [place] [phone] Geovanni Tapia MD [address] [facility] [place] [phone] Social History Tobacco Use Types Packs/Day Years [...] on filedocumented in this encounter Care Teams Oem Sales Manager Relationship Specialty Start Date End Date Ken Garcia PA [address] [place] [address], [facility] [address] [place] [address] PCP - General Physician Rotary Drum Tanner 03/02/23 documented as of this encounter
--- OUTSIDE RECORDS SUMMARY | 2024-10-11 14:34 | XMS_ITS | Clinical Summary ---
Author Organization [facility], Address [address] [place] [place] [phone] Phone Care Team Providers Care Estate Administrator Name Role Phone Ken Garcia Primary Care Provider [phone] Allergies No known active allergies Medications Calcium [...] Colorectal Cancer Screening: Sigmoidoscopy 2018 Influenza Vaccine (Season Ended) 2025 05/25/2023, 04/16/2022, 04/08/2021, [place] [address] Care Teams Estate Administrator Relationship Specialty Start Date End Date Ken Garcia PA [address] [place] [address], [address] [place], [place] [phone] PCP - General Physician Glove Turner 03/02/23
--- OUTSIDE RECORDS SUMMARY | 2024-10-11 14:34 | XMS_ITS | Encounter Summary ---
Author Organization [facility] [place], Address [address] [place] [address] Phone Care Team Providers Care Wheel Cutter Name Role Phone Ken Garcia Primary Care Provider [phone] Encounter Details Date Type Department Care Team (Late st Contact Info) Description 03/10/2023 Documentation Only [facility], - Federico [address] [facility] [address] [place] [phone] Geovanni Tapia MD [address] [facility] [place] [phone] Social History Tobacco Use Types Packs/Day Years [...] on filedocumented in this encounter Care Teams Wheel Cutter Relationship Specialty Start Date End Date Ken Garcia PA [address] [place] [address], [facility] [address] [place] [address] PCP - General Physician Heel Sander Rubber 03/02/23 documented as of this encounter
== END 2024-10-11 13:34 | disposition home or self-care (01) ==
LOC: HO.HMCH 12:37
PROVIDERS: PCP Physician Assistant; Visit Provider Internal Medicine
DX: K74.60 Unspecified cirrhosis of liver (principal); G47.33 Obstructive sleep apnea (adult) (pediatric); H91.91 Unspecified hearing loss, right ear; R09.81 Nasal congestion

== ENCOUNTER → 2024-10-11 12:36 | Outpatient (BNVA) | payer OTHER, SELFPAY | PROVIDERS: PCP Physician Assistant; Visit Provider Internal Medicine | DX: G47.33 Obstructive sleep apnea (adult) (pediatric) (principal); H91.91 Unspecified hearing loss, right ear; R09.81 Nasal congestion; K70.31 Alcoholic cirrhosis of liver with ascites; N52.9 Male erectile dysfunction, unspecified; R11.0 Nausea; H66.90 Otitis media, unspecified, unspecified ear; S22.49XA Multiple fractures of ribs, unspecified side, initial encounter for closed fracture; X58.XXXA Exposure to other specified factors, initial encounter; Y93.9 Activity, unspecified; Y92.9 Unspecified place or not applicable; Y99.9 Unspecified external cause status | CPT/HCPCS: 99212 ==

== ENCOUNTER 2025-01-02 08:01 | Outpatient (AMB) | payer OTHER, SELFPAY ==
--- OUTSIDE RECORDS SUMMARY | 2025-01-02 08:05 | XMS_ITS | Encounter Summary ---
Author Organization [facility] [place] [facility], Address [address] [place] [address] Phone Care Team Providers Care Indoor Plant Technician Name Role Phone Ken Garcia Primary Care Provider [phone] Encounter Details Date Type Department Care Team (Late st Contact Info) Description 04/10/2024 Documentation Only [facility] [place], - Fed[address] [place] [phone] Nettie Christianson [address] [place] [phone] Social History Tobacco Use Types Packs/Day [...] on filedocumented in this encounter Care Teams Indoor Plant Technician Relationship Specialty Start Date End Date Ken Garcia PA [address] [place] [address], [address] [place], [place] [phone] PCP - General Physician Manager Lpn 03/02/23 documented as of this encounter
--- NOTE | 2025-01-02 08:55 | A.OFFPC_ITS ---
Vital Signs 01/02/25 08:56 01/02/25 12:26 Height 6 ft Weight 233 lb BMI 31.6 BP 132/64 120/80 Blood Pressure Location Lt brachial Position Sitting Standing Pulse 86 Pulse Source Pulse Oximeter Temp 97.3 F Temp Source Temporal Artery Scan Pulse Oximetry (%) 98 Oxygen Delivery Method Room Air Intake Visit Reasons: discuss CT Intake Note: Patient is here to follow up on Discuss CT for headaches. [employer]ator [employer] Required: No Merchandiser Retail Representative: Not Required per policy Accompanied by: Self / Same As Patient Allergies No Known Allergies (No Known Allergies*) Allergy (Verified 01/02/25 09:23) Medication List - Last Reconciled 01/02/25 by Ken Garcia PA-C blood pressure test kit-large As directed fluticasone propionate 50 mcg/actuation (Flonase Allergy Relief) 1 spray intranasal DAILY PRN 30 days gabapentin 100 mg PO BID 90 days hydroxyzine HCl 25 mg PO BEDTIME PRN lisinopril 5 mg PO DAILY 90 days omeprazole 40 mg PO DAILY sertraline 50 mg PO DAILY 30 days sumatriptan succinate take 1 tab at onset of headache; if no relief may repeat 1 tab after at least 2 hrs; max = 4 tabs/24 hr PO 30 days trazodone 50 mg PO BEDTIME 90 days Tobacco use date assessed: 01/02/25 Dental Screening Dental Screen Date: 10/11/[address] HPI Details The patient is a 54-year-old male presenting with chronic headache. The headaches have been persistent for about a month and are described as a constant pressure in the head, often accompanied by lightheadedness and a sensation of impending syncope upon standing. The patient has a history of ascites, which has resolved, and he was recently taken off spironolactone and ciprofloxacin. He reports that his blood pressure fluctuates, but it was recorded as 132/64 mmHg sitting and 130/85 mmHg standing during the visit. The patient also experiences photosensitivity, which exacerbates his headaches, and he has a history of sciatica. He has tried various medications, including sumatriptan and gabapentin, with limited relief. [facility] Medical History Alcoholic hepatitis Tobacco use disorder Alcohol abuse Alcoholic gastritis Elevated liver function tests Hypercalcemia Dark brown-colored urine Jaundice Vomiting Excessive drinking alcohol Reactive depression GERD (gastroesophageal reflux disease) Hypertension Surgical History History of wisdom tooth extraction History of esophagogastroduodenoscopy (EGD) History of colonoscopy Hx of hernia repair Social History Household Members: None Housing: Apartment Are you a primary rn acute care to a significant other at home: No Do you presently have visiting nurse or other home services: No Patient Tobacco Use Status: Current everyday Tobacco user Tobacco use type: Cigarette Cigarette Packs Per Day: 0.25 Cigarettes Per Day: 4 Years Smoked: 38 Packs Per Year: 10 Packs per year/per ci.60 e-Cigarette/Vaping Use: Never Used Second Hand Smoke Exposure: Yes service: No Current occupational status: employed Cognitive needs: No Hearing needs: No Vision needs: Yes Questionnaire PHQ-9 Over the last 2 weeks, how often have you been bothered by any of the following problems? 1. Little interest or pleasure in doing things: not at all 2. Feeling down, depressed, or hopeless: several days 3. Trouble falling or staying asleep, or sleeping too much: not at all 4. Feeling tired or having little energy: several days 5. Poor appetite or overeating: not at all 6. Feeling bad about yourself - or that you are a failure or have let yourself or your family down: not at all 7. Trouble concentrating on things, such as reading the newspaper or watching television: not at all 8. Moving or speaking so slowly that other people could have noticed. Or the opposite - being so fidgety or restless that you have been moving around a lot more than usual: not at all 9. Thoughts that you would be better off or of hurting yourself in some way: not at all Total score: 2 Depression Screening Interpretation: Positive Depression Screening Done: Yes Source: Developed by Drs. Eladio Ma, Solange Cabrales, Florin Sawant and colleagues, with an educational jose alberto from [employer]. Thrive Questionnaire Date Thrive assessed: 10/11/24 I am a: Patient What is your living situation today?: I have a steady place to live Within the past 12 months, did the food you bought not last and you didn't have the money to get more?: Never true Within the past 12 months, did you worry whether your food would run out before you got money to buy more?: Never true Do you have trouble paying for medicines?: No Do you have trouble getting transportation to medical appointments?: No Do you have trouble paying your heating and electricity bill?: No Do you have trouble taking care of your child, family member or friend?: No Do you have trouble with day-to-day activities such as bathing, preparing meals, shopping, managing finances, etc.?: No Are you currently unemployed and looking for a job?: No Are you interested in more education?: No Please select the resources that you would like help with: None Currently or been in a relationship where the following occur: I choose not to answer THRIVE Score: 0 AUDIT C Alcohol Use Questionnaire (AUDIT-C) 1. How often do you have a drink containing alcohol?: Never Total Score: 0 MADYSON-7 AMB Questionnaire MADYSON-7 Date MADYSON - 7 assessed: 01/02/25 Feeling nervous, anxious, or on edge: 3 = Nearly every day Not being able to stop or control worryin = Nearly every day Worrying too much about different things: 0 = Not at all Trouble relaxin = Not at all Being so restless that it is hard to sit still: 0 = Not at all Becoming easily annoyed or irritable: 0 = Not at all Feeling afraid as if something awful might happen: 0 = Not at all Total MADYSON-7 score (0-4 normal; 5-9 mild; 10-14 moderate; 15-21 severe): 6 Source: Developed by Drs. Eladio Ma, Solange Cabrales, Florin Sawant and colleagues, with an educational jose alberto from [employer]. Review of Systems Const Reports headache(s) Eyes Denies loss of vision ENT Denies vertigo, Reports dizziness, Reports headache(s) and Denies sore throat Card Denies chest pain, Denies leg edema and Denies lightheadedness Resp Denies cough, Denies hemoptysis and Denies wheezing GI Denies abdominal pain, Denies melena, Denies constipation, Denies diarrhea and Denies vomiting Denies dysuria, Denies urinary frequency and Denies urinary urgency Musc Denies arthralgias, Denies joint swelling, Denies numbness and Denies tingling Neuro Denies Abnormal speech present, Denies behavioral changes, Denies vertigo, Reports dizziness, Reports headache(s), Denies loss of vision, Denies memory loss, Denies numbness and Denies tingling Psych Denies anxiety, Denies behavioral changes, Denies depression, Denies memory loss and Denies panic attacks Dustin/Lymph Denies easy bleeding and Denies easy bruising Aller/Immun Denies wheezing Physical exam (Primary Care) Vital Signs: Last Vital Signs Temp 97.3 F 01/02/25 08:56 Pulse 86 01/02/25 08:56 BP 132/64 01/02/25 08:56 Pulse Ox 98 01/02/25 08:56 Oxygen Delivery Method Room Air 01/02/25 08:56 BMI result Body Mass Index 31.6 Tobacco/Smoking Status: Tobacco use Status Tobacco use date assessed 01/02/25 01/02/25 08:59 Patient Tobacco Use Status Current everyday Tobacco 01/02/25 09:01 Tobacco use type Cigarette 01/02/25 09:01 e-Cigarette/Vaping Use Never Used 01/02/25 09:01 PHQ-9: PHQ-9 Score PHQ-9: Total score 2 01/02/25 09:28 Depression Screening Interpretation: Positive Thrive Assessment: Date of Thrive Assessment Date Thrive assessed 10/11/24 01/02/25 08:59 Currently or been in a relationship where the following occur: I choose not to answer Const General: healthy appearing, no acute distress, alert and awake Nutritional Appearance: well nourished Orientation/consciousness: oriented to person, oriented to place and oriented to time [facility] Ears: TM's normal bilaterally General nose exam: Normal nasal mucous membranes and turbinates present Eyes Conjunctivae: conjunctivae normal Sclerae: sclerae normal Pupils: Equal, round and reactive pupils present Neck Neck: Yes no lymphadenopathy and Yes no JVD Thyroid: Thyroid normal Carotids: no bruits Resp Effort & Inspection: normal respiratory effort and not tachypneic Auscultation: no crackles, no rales, no rhonchi and no wheezes Cardio Rate: regular rate Rhythm: regular rhythm Heart sounds: no murmurs and normal S1 and S2 GI Palpation (GI): Soft to palpation, nontender, no hepatomegaly and no splenomeg danay Auscultation: normal bowel sounds Skin General skin exam: no rashes or lesions noted and dry skin Neuro General: oriented to person, oriented to place and oriented to time Cranial nerves: Yes Equal, round and reactive pupils present Speech: No Abnormal speech present Gait exam (Neuro): Normal gait present Motor exam (neuro): no tremor noted Extrem Right upper extremity: full ROM Left upper extremity: full ROM Right lower extremity: full ROM; no edema Left lower extremity: full ROM; no edema Psych Mental Status: mental status grossly normal Speech and movement: Normal speech and movement present Affect: normal affect Attitude: cooperative Thought process: Normal thought process present Coding Level of Care Code Est Pt Level 4 (50974) Diagnoses Chronic migraine without aura with status migrainosus, not intractable G43.701 Intractability: not intractable Status migrainosus presence: with status migrainosus Assessment & Plan Assessment & Plan (1) Chronic migraine without aura: Code(s): G43.709 - Chronic migraine without aura, not intractable, without status migrainosus Category: Medical Qualifiers: Intractability: not intractable Status migrainosus presence: with status migrainosus Qualified Code(s): G43.701 - Chronic migraine without aura, not intractable, with status migrainosus Plan: The patient will undergo a CT scan of the head to evaluate for any intracranial pathology due to persistent headaches. Rizatriptan will be trialed as an alternative to sumatriptan for headache relief. Nonsteroidal anti-inflammatory drugs (NSAIDs) will be prescribed to manage inflammation, and the gabapentin dosage may be increased to 300 mg to assess its efficacy in managing the headaches. Orders: Orders CT head/brain wo IV con Today G43.701 - Chronic migraine without aura, not intractable, with status migrainosus Comprehensive Met. Panel Today I10 - Essential (primary) hypertension Complete Blood Count no Diff Today I10 - Essential (primary) hypertension Prostate Specific Antigen Scr Today I10 - Essential (primary) hypertension, Z12.5 - Encounter for screening for malignant neoplasm of prostate Medications: New rizatriptan take 1 tab at onset of headache; if no relief may repeat 1 tab after at least 2 hrs; max = 3 tabs/24 hr PO 9 tabs 0RF 30 days G43.909 - Migraine, unspecified, not intractable, without status migrainosus naproxen 500 mg PO BID 30 tabs 0RF 15 days G43.909 - Migraine, unspecified, not intractable, without status migrainosus gabapentin 300 mg PO BID 60 caps 3RF 30 days G43.909 - Migraine, unspecified, not intractable, without status migrainosus On Hold gabapentin Hold Comment: Doctor's Order 100 mg PO BID 90 days 180 caps 1RF R20.2 - Paresthesia of skin sumatriptan succinate Hold Comment: Doctor's Order take 1 tab at onset of headache; if no relief may repeat 1 tab after at least 2 hrs; max = 4 tabs/24 hr PO 30 days 9 tabs 0RF G43.909 - Migraine, unspecified, not intractable, without status migrainosus
[2025-01-02 08:56] VITALS: BP 132/64; PULSE 86; TEMP 36.3; O2SAT 98; BMI 31.6
[2025-01-02 12:26] VITALS: BP 120/80
== END 2025-01-02 09:47 | disposition home or self-care (01) ==
LOC: HO.HMCH 08:02
PROVIDERS: PCP Physician Assistant; Visit Provider Physician Assistant
DX: G43.701 Chronic migraine without aura, not intractable, with status migrainosus (principal)

== ENCOUNTER → 2025-01-02 08:01 | Outpatient (BNVA) | payer OTHER, SELFPAY | PROVIDERS: PCP Physician Assistant; Visit Provider Physician Assistant | DX: G43.701 Chronic migraine without aura, not intractable, with status migrainosus (principal); I10 Essential (primary) hypertension; R20.2 Paresthesia of skin | CPT/HCPCS: 99212 ==

== ENCOUNTER 2025-06-13 09:40 | Outpatient (REF) | payer OTHER, SELFPAY ==
--- NOTE | 2025-06-13 10:35 | MHC.AU.HA1 ---
Hearing Aid Evaluation Date of Visit: 06/13/25 Historical Information: Description of Hearing: Right Ear: Mild sloping to moderate rising to mild dropping to severe sensorineural hearing loss; Left Ear: Mild sloping to profound sensorineural hearing loss Summary: Provided hearing test and medical clearance from [facility]. 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 Never pursued [facility] due to financial barriers. Always relied on right ear. However, now hearing loss is starting to affect daily interactions. Difficulty understanding, often asking for repetition, especially in adverse listening environments. Hoping HAs will help ease some of his communication difficulties. Opted for rechargeable RITE. Impressions taken, bilaterally, without incident - Sent to [facility]. Hearing Aid Prescription: Based on the individual?s shared listening needs, communication environments, dexterity, desire for connectivity, and personal preferences, the following prescription for amplification has been made: Right ear: Make, Model, Color: Phonak Audeo I70-R Color: Graphite Larios Battery Size: Rechargeable Account Adjuster/Slim Tube: 1M Type of Earmold/Dome/CShell/SlimTip: Canal lock slim tip Left ear: Left ear prescription to be same as Right Hearing Aid above: Make, Model, Color: Phonak Audeo I70-R Color: Graphite Larios Battery Size: Rechargeable Account Adjuster/Slim Tube: 1P Type of Earmold/Dome/CShell/SlimTip: Canal lock slim tip Accessories/Assistive Technology: Job Site Superintendent Plan of Care: Patient wishes to purchase hearing aids as prescribed Action Taken/Action Needed: Hearing Instrument Fitting to be scheduled when materials arrive Primary Diagnosis: H90.A31 Mixed HL, Unilateral Right Ear, W/Restricted Contralateral Secondary Diagnosis: H90.A22 SNHL, Unilateral, Left Ear, W/Restricted Contralateral Hearing Signature: Provider: Bright Hinton, [facility]
== END 2025-06-13 09:41 | disposition home or self-care (01) ==
LOC: HO.HAP 09:40
PROVIDERS: Visit Provider Otolaryngology
DX: H90.A31 Mixed conductive and sensorineural hearing loss, unilateral, right ear with restricted hearing on the contralateral side (principal); H90.A22 Sensorineural hearing loss, unilateral, left ear, with restricted hearing on the contralateral side
CPT/HCPCS: 92591; V5275